=== PATIENT | male | born 1955 | race Caucasian/White ===

== ENCOUNTER 2021-12-22 18:20 | Inpatient (IN) | payer OTHER, SELFPAY ==
[2021-12-22] VITALS (9 sets, daily range): BP systolic 120–162; BP diastolic 74–95; PULSE 59–120; RESP 15–45; TEMP 36.3–36.6; O2SAT 84–99
--- NOTE | 2021-12-22 18:33 | DI.RAD.S_ITS ---
PROCEDURE: XR CHEST 2V INDICATIONS: shortness of breath TECHNIQUE: 2 views of the chest were acquired. COMPARISON: None. FINDINGS: Surgical changes and devices: None. Lungs and pleura: More pronounced in the right lung there are diffusely increased bilateral interstitial markings with central/perihilar predominance along with central pulmonary vascular congestion. Mediastinum: Mediastinal contours are normal. Heart size is enlarged. Bones and chest wall: No suspicious bony abnormalities. Soft tissues appear unremarkable. IMPRESSION: Findings of mild to moderate interstitial pulmonary edema and cardiomegaly. Increased opacity in the right lung may represent a superimposed infectious process or simply asymmetric pulmonary edema. Dictated by: Amari Rodney M.D. on 12/22/2021 at 19:14 Approved by: Amari Rodney M.D. on 12/22/2021 at 19:15
--- NOTE | 2021-12-22 18:44 | ED_ITS ---
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 States it has been bad for the last 6 months he was admitted at [facility] with similar findings in August. He states that he did not realize that he was in the intensive care unit for week and half, they did not tell him anything and did not let him eat for 2 days so he decided to leave. He does not know the doses of his lisinopril, metoprolol, furosemide or Eliquis but states he has been taking them all as prescribed. He notes that his in the last 3-4 days he has had dramatically worsening exertional dyspnea to the point that he can not even walk across the room without needing to sit down. He is not on home oxygen. States he has not used any methamphetamine since prior to his August hospitalization he does continue to use occasional marijuana. He reports orthopnea, lower extremity edema puffiness around his eyes. He had has not weighed himself to know if there has been a significant change to body weight. He has not had fevers he has had a dry cough. He complains of no abdominal pain, dysuria, flank pain. No acute neurologic symptoms. Related Data Allergies Allergy/AdvReac Type Severity Reaction Status Date / Time No Known Drug Allergies Allergy Verified 12/23/21 00:53 Review of Systems Review of Systems Narrative: Remainder of complete review of systems is otherwise unremarkable except for that included in the HPI. Patient History Medical History Acute on chronic HFrEF (heart failure with reduced ejection fraction) Anticoagulant prescribed at discharge Cardiomyopathy Congestive heart failure Hypertension Social History household members: significant other and children Smoking Status: Current some day smoker alcohol intake: never Exam Initial Vital Signs Initial Vital Signs: Vital Signs Temperature 97.4 F L 12/22/21 18:25 Pulse Rate 59 L 12/22/21 18:25 Respiratory Rate 32 H 12/22/21 18:25 Blood Pressure 138/95 H 12/22/21 18:25 Pulse Oximetry 94 12/22/21 18:25 Oxygen Delivery Method 12/22/21 18:25 General: Chronically ill-appearing, short of breath on walking to triage room but Able to give a complete and coherent history. HEENT: Moist mucous membranes, normal sclera with reactive pupils, periorbital swelling and facial fullness Neck: Positive JVD, supple Respiratory: Lungs with diffuse wheeze in all lung quigley, rhonchi and rales in the bases Cardiac: Irregular, 2/6 systolic murmur, positive gallop. No rubs Abdomen: Obese, Soft, nontender, good bowel tones, no flank pain Skin: Warm and dry, adequate peripheral perfusion Neurologic: Grossly neurologically intact with no obvious asymmetries or abnormalities Extremities: No trauma, well perfused, 2+ bilateral edema Psych: Cooperative, appropriate insight and affect Course Orders Ordered: ED Orders 12/22/21 22:35 Trop I [Troponin I] Stat 12/22/21 23:35 BiPAP Ventilatory Support RT PROTOCOL 12/22/21 23:59 ABG [Arterial Blood Gas] Stat Troponin & CK Cardiac Panel Stat 12/23/21 02:00 ABG [Arterial Blood Gas] Stat Acetaminophen (Acetaminophen 325 Mg Tablet) 650 mg PO Q6HR PRN PRN Reason: Fever/Mild Pain (1-3) Apixaban (Apixaban 5 Mg Tablet) 5 mg PO BID [facility] Furosemide (Furosemide 100 Mg/10 Ml Vial) 60 mg IV Q8H [facility] Last Admin: 12/23/21 02:12 Dose: 60 mg Documented By: CB Discontinued Medications Apixaban (Apixaban 5 Mg Tablet) 5 mg PO NOW ONE Stop: 12/22/21 23:43 Last Admin: 12/22/21 23:51 Dose: 5 mg Documented By: OW Furosemide (Furosemide 100 Mg/10 Ml Vial) 80 mg IV NOW ONE Stop: 12/22/21 23:15 Last Admin: 12/22/21 23:21 Dose: 80 mg Documented By: OW Furosemide (Furosemide 40 Mg/4 Ml Vial) 40 mg IV NOW ONE Stop: 12/23/21 00:28 Influenza Virus Vaccine (Influenza Hd Vaccine 0.7 Ml Syringe) 0.7 ml IM .ONCE ONE Stop: 12/23/21 02:34 Lisinopril (Lisinopril 5 Mg Tablet) 5 mg PO NOW ONE Stop: 12/22/21 23:36 Last Admin: 12/22/21 23:51 Dose: 5 mg Documented By: OW Metoprolol Succinate (Metoprolol Er 25 Mg Tablet) 25 mg PO NOW ONE Stop: 12/22/21 23:36 Last Admin: 12/22/21 23:51 Dose: 25 mg Documented By: OW Spironolactone (Spironolactone 25 Mg Tablet) 25 mg PO NOW ONE Stop: 12/22/21 23:36 Last Admin: 12/22/21 23:50 Dose: 25 mg Documented By: OW Vital Signs Vital signs: Vital Signs - 8 hr 12/22/21 22:30 12/22/21 23:26 12/23/21 00:00 Temperature 97.8 F Pulse Rate 105 H 107 H 108 H Respiratory Rate 45 H 20 16 Blood Pressure 120/74 Pulse Oximetry 84 L 97 98 Oxygen Delivery Method Nasal Cannula Oxygen Flow Rate 5 5 Medical Decision Making Lab Data Result diagrams: 12/22/21 18:46 12/22/21 18:46 Labs: Lab Results 12/22/21 12/22/21 12/22/21 Range/Units 18:37 18:46 18:46 WBC 9.4 (4.5-11.0) X10^3/uL RBC 4.82 (4.5-5.9) X10^6/uL Hgb 15.0 (13.5-17.5) g/dL Hct 44.8 (41-53) % MCV 92.8 (80-100) fL MCH 31.0 (26-34) PG MCHC 33.5 (30-36) % RDW 16.6 H (11.6-14.8) % Plt Count 243 (150-400) X10^3/uL Neut % (Auto) 62.1 (50-75) % Lymph % (Auto) 27.4 (25-40) % [place] % (Auto) 9.0 (3-14) % Eos % (Auto) 0.3 L (2-4) % Baso % (Auto) 1.2 (0-2) % Neut # (Auto) 5900 (2034-3530) /uL Lymph # (Auto) 2600 (5160-4812) /uL [place] # (Auto) 800 (0-900) /uL Eos # (Auto) 0 (0-450) /uL Baso # (Auto) 100 (0-100) /uL ABG pCO2 (35-45) mmHg ABG pO2 (80-100) mmHg ABG HCO3 (22-26) mmol/L ABG Total CO2 (21-31) mmol/L ABG O2 Saturation (95-100) % ABG Base Excess (-2-2) mmol/L FiO2 Sodium 142 (137-145) mmol/L Potassium 4.6 (3.4-5.1) mmol/L Chloride 105 (98-107) mmol/L Carbon Dioxide 26 (22-32) mmol/L BUN 20 (9-20) mg/dL Creatinine 1.07 (0.66-1.25) mg/dL Estimated GFR > 60 (>60) mL/min BUN/Creatinine Ratio 18.7 (6-22) Glucose 117 H (80-110) mg/dL Lactate (0.7-2.1) mmol/L Calcium 8.9 (8.4-10.2) mg/dL Total Bilirubin 2.8 H (0.2-1.3) mg/dL AST 48 (17-59) IU/L ALT 47 (<50) IU/L Alkaline Phosphatase 93 (38-126) U/L Total Creatine Kinase (55-170) U/L CK-MB (CK-2) CK-MB (CK-2) Rel Index Troponin I (0.01-0.034) ng/mL NT-Pro-B Natriuret Pep (<125) pg/mL Total Protein 7.8 (6.3-8.2) g/dL Albumin 4.2 (3.5-5.0) g/dL Globulin 3.6 (1.7-4.1) g/dL Albumin/Globulin Ratio 1.2 (1.0-2.8) SARS-CoV-2 (PCR) Negative (Negative) 12/22/21 12/22/21 12/22/21 Range/Units 18:46 19:30 21:05 WBC (4.5-11.0) X10^3/uL RBC (4.5-5.9) X10^6/uL Hgb (13.5-17.5) g/dL Hct (41-53) % MCV (80-100) fL MCH (26-34) PG MCHC (30-36) % RDW (11.6-14.8) % Plt Count (150-400) X10^3/uL Neut % (Auto) (50-75) % Lymph % (Auto) (25-40) % [place] % (Auto) (3-14) % Eos % (Auto) (2-4) % Baso % (Auto) (0-2) % Neut # (Auto) (9117-4399) /uL Lymph # (Auto) (2197-0394) /uL [place] # (Auto) (0-900) /uL Eos # (Auto) (0-450) /uL Baso # (Auto) (0-100) /uL ABG pCO2 (35-45) mmHg ABG pO2 (80-100) mmHg ABG HCO3 (22-26) mmol/L ABG Total CO2 (21-31) mmol/L ABG O2 Saturation (95-100) % ABG Base Excess (-2-2) mmol/L FiO2 Sodium (137-145) mmol/L Potassium (3.4-5.1) mmol/L Chloride (98-107) mmol/L Carbon Dioxide (22-32) mmol/L BUN (9-20) mg/dL Creatinine (0.66-1.25) mg/dL Estimated GFR (>60) mL/min BUN/Creatinine Ratio (6-22) Glucose (80-110) mg/dL Lactate 3.0 H 2.0 (0.7-2.1) mmol/L Calcium (8.4-10.2) mg/dL Total Bilirubin (0.2-1.3) mg/dL AST (17-59) IU/L ALT (<50) IU/L Alkaline Phosphatase (38-126) U/L Total Creatine Kinase (55-170) U/L CK-MB (CK-2) CK-MB (CK-2) Rel Index Troponin I 0.182 H* (0.01-0.034) ng/mL NT-Pro-B Natriuret Pep 8780 H (<125) pg/mL Total Protein (6.3-8.2) g/dL Albumin (3.5-5.0) g/dL Globulin (1.7-4.1) g/dL Albumin/Globulin Ratio (1.0-2.8) SARS-CoV-2 (PCR) (Negative) 12/22/21 12/22/21 12/22/21 Range/Units 22:35 23:59 23:59 WBC (4.5-11.0) X10^3/uL RBC (4.5-5.9) X10^6/uL Hgb (13.5-17.5) g/dL Hct (41-53) % MCV (80-100) fL MCH (26-34) PG MCHC (30-36) % RDW (11.6-14.8) % Plt Count (150-400) X10^3/uL Neut % (Auto) (50-75) % Lymph % (Auto) (25-40) % [place] % (Auto) (3-14) % Eos % (Auto) (2-4) % Baso % (Auto) (0-2) % Neut # (Auto) (5260-4410) /uL Lymph # (Auto) (6781-3739) /uL [place] # (Auto) (0-900) /uL Eos # (Auto) (0-450) /uL Baso # (Auto) (0-100) /uL ABG pCO2 40.4 (35-45) mmHg ABG pO2 81 (80-100) mmHg ABG HCO3 26 (22-26) mmol/L ABG Total CO2 27 (21-31) mmol/L ABG O2 Saturation 96 (95-100) % ABG Base Excess 1.0 (-2-2) mmol/L FiO2 36 Sodium (137-145) mmol/L Potassium (3.4-5.1) mmol/L Chloride (98-107) mmol/L Carbon Dioxide (22-32) mmol/L BUN (9-20) mg/dL Creatinine (0.66-1.25) mg/dL Estimated GFR (>60) mL/min BUN/Creatinine Ratio (6-22) Glucose (80-110) mg/dL Lactate (0.7-2.1) mmol/L Calcium (8.4-10.2) mg/dL Total Bilirubin (0.2-1.3) mg/dL AST (17-59) IU/L ALT (<50) IU/L Alkaline Phosphatase (38-126) U/L Total Creatine Kinase 81 (55-170) U/L CK-MB (CK-2) TNP CK-MB (CK-2) Rel Index TNP Troponin I 0.189 H* 0.199 H* (0.01-0.034) ng/mL NT-Pro-B Natriuret Pep (<125) pg/mL Total Protein (6.3-8.2) g/dL Albumin (3.5-5.0) g/dL Globulin (1.7-4.1) g/dL Albumin/Globulin Ratio (1.0-2.8) SARS-CoV-2 (PCR) (Negative) MDM Narrative Medical decision making narrative: 66-year-old gentleman presents with shortness of breath. Medical history is somewhat convoluted and most is not available through our immediate medical records. It appears that his most recent hospitalization was at [facility] with eventual transfer to [facility] for: -congestive heart failure with ejection fraction of 20% in August of 2021. Almost 12 lb diuresis with IV Lasix, oral spironolactone. -Atrial fibrillation with rapid ventricular response, underwent cardioversion -treated with metoprolol and lisinopril. -was recommended that he undergo cardiac catheterization however he chose to leave against medical advice prior to that Echocardiogram 08/07/2019: Ejection fraction 20%. No left ventricular thrombus seen. Markedly dilated right ventricle, severely hypokinetic. Moderate mitral regurgitation. Trace aortic insufficiency. Patient presents today with clinically fairly significant fluid overload. When sitting talking and taking deep breath oxygen saturations on 2 L nasal cannula are in the upper 90s. Laying flat sleeping with episodes of sleep apnea he will drop into the upper 80s. Rate is in the 80s to 110 range. Overall picture today is that of decompensated congestive heart failure with significant volume overload with troponin leak secondary to significant cardiomyopathy and failure. He is currently on Eliquis, having no chest pain and no ST T elevation changes on his EKG. EKG shows right bundle-branch block, multiple PVCs, rhythm is difficult to assess. It does appear that he has an occasional P wave and than has small runs of what looks like atrial fibrillation. He does not appear to be having any ventricular tachycardia nor bigeminy. For his heart failure will begin IV Lasix and will add BiPAP to help with positive pressure in the alveoli. Will have him continue his oral Eliquis rather than beginning IV heparin. Will also continue his oral metoprolol, ayesha nopril and spironolactone. May benefit from echocardiogram tomorrow. Continue follow clinically and he may benefit from heart catheterization at some point in the near future however it does not look like it needs to be this evening and may not be required with this hospitalization. Care is reviewed with Dr. Sawant, cardiology, he feels that admission to [facility] is reasonable at this point and there are no additional options with significantly high volumes and no bed availability throughout [facility]. Critical Care Time Critical Care Time Critical Care Time: Yes Total Critical Care Time: 36 Attestation: Critical care time is separate from other billable procedures. There is a high probability of a significant, sudden or life-threatening deterioration that requires my full and direct attention, intervention and personal management. 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
[2021-12-22 18:49] LABS: Add Manual Diff / Slide Review NO; Basophils Absolute Auto 100 /uL (0-100); Basophils Percent Auto 1.2 % (0-2); Eosinophils Absolute Auto 0 /uL (0-450); Eosinophils Percent Auto 0.3 % (2-4); Hematocrit 44.8 % (41-53); Lymphocytes Absolute Auto 2600 /uL (1100-4500); Lymphocytes Percent Auto 27.4 % (25-40); Mean Corpuscular HGB Conc 33.5 % (30-36); Mean Corpuscular Volume 92.8 fL (80-100); Monocytes Absolute Auto 800 /uL (0-900); Neutrophils Absolute Auto 5900 /uL (1500-7000); Neutrophils Percent Auto 62.1 % (50-75); Platelet Count 243 X10^3/uL (150-400); Red Blood Cell Count 4.82 X10^6/uL (4.5-5.9); Red Cell Distribution Width 16.6 % (11.6-14.8); White Blood Cell Count 9.4 X10^3/uL (4.5-11.0)
[2021-12-22 19:01] LABS: Alanine Aminotransferase 47 IU/L (<50); Albumin 4.2 g/dL (3.5-5.0); Albumin Globulin Ratio 1.2 (1.0-2.8); Alkaline Phosphatase 93 U/L (38-126); Aspartate Aminotransferase 48 IU/L (17-59); BUN Creatinine Ratio 18.7 (6-22); Bilirubin Total 2.8 mg/dL (0.2-1.3); Blood Urea Nitrogen 20 mg/dL (9-20); Calcium 8.9 mg/dL (8.4-10.2); Carbon Dioxide 26 mmol/L (22-32); Chloride 105 mmol/L (98-107); Estimated Glomerular Filt Rate > 60 mL/min (>60); Globulin 3.6 g/dL (1.7-4.1); Glucose 117 mg/dL (80-110); HEMOLYSIS 25 (0-50); Potassium 4.6 mmol/L (3.4-5.1); Sodium 142 mmol/L (137-145); Total Protein 7.8 g/dL (6.3-8.2)
[2021-12-22 19:10] LABS: COVID19 -Nasal RAPID Negative (Negative)
[2021-12-22 19:58] LABS: NT-proBNP (BNP-Adult 18+) 8780 pg/mL (<125)
[2021-12-22 20:08] LABS: Troponin I 0.182 ng/mL (0.01-0.034)
[2021-12-22 20:46] LABS: Reflexed Lactate in 2 Hours Y
--- NOTE | 2021-12-22 22:52 | PC.NURSE ---
Pt sleeping in semi-irwin position with 5L NC. While sleeping pt's SpO2 drops to the low 80s for periods of 1 min. When woke up pt startles and states, I nee more oxygen and becomes tachypneic. Pt's head of bed raised and RR drops to 18 with SpO2 94%. Pt denies a hx of BRENDAN but reports that he is fearful to go to bed because he is afraid that he will stop breathing. Pt falls asleep quickly and continues to have periods of apnea while sleeping. RT notified and has come down to evaluate pt. RT informs this RN that she will defer to MD's decision. This RN will notify ED MD of pt condition.
[2021-12-22 23:09] LABS: Troponin I 0.189 ng/mL (0.01-0.034)
[2021-12-22] MEDS: FUROSEMIDE 100 MG/10 ML VIAL 80 MG IV (23:21)
[2021-12-22] MEDS: SPIRONOLACTONE 25 MG TABLET PO (23:50)
[2021-12-22] MEDS: lisinopriL 5 MG TABLET PO (23:51)
[2021-12-22] MEDS: APIXABAN 5 MG TABLET PO (23:51)
[2021-12-22] MEDS: METOPROLOL ER 25 MG TABLET PO (23:51)
[2021-12-23] VITALS (47 sets, daily range): BP systolic 83–143; BP diastolic 44–86; PULSE 75–111; RESP 13–43; TEMP 0–37; O2SAT 90–100; BMI 35.2
[2021-12-23 00:21] LABS: Creatine Kinase 81 U/L (55-170)
[2021-12-23 00:43] LABS: Troponin I 0.199 ng/mL (0.01-0.034)
[2021-12-23 01:11] LABS: HCO3 ABG 26 mmol/L (22-26); Oxygen Saturation ABG 96 % (95-100); PCO2 ABG 40.4 mmHg (35-45); PO2 ABG 81 mmHg (80-100); TCO2 ABG 27 mmol/L (21-31)
[2021-12-23 01:12] LABS: Fractionated Inspired Oxygen 36
[2021-12-23 01:54] LABS: pH ABG 7.41 (7.35-7.45)
[2021-12-23] MEDS: FUROSEMIDE 100 MG/10 ML VIAL 60 MG IV ×2 (02:12→15:52)
--- NOTE | 2021-12-23 02:59 | P.HP_ITS ---
History of Present Illness History of Present Illness Date Patient Seen: 12/23/21 Time Patient Seen: 02:00 Chief complaint: SOB, methamphetamine mediated heart failure Narrative: Bunny Castillo is a 66 y.o. male with a history of methamphetamine use (stated last used in August 2021), methamphetamine mediated ischemic cardiomyopathy, heart failure with a reduced ejection fraction of 15%, presented to the ED with worsening shortness of breath. He denies chest pain, but endorses feeling bloated and when he exhales, feels though what he exhales is hot. Denies fe lauren, sweats or chills, vomiting, dysurea, diarrhea or constipation. He has a history of sleep apnea. He does endorse not being able to walk any distance, unable to carry groceries, denies weight gain. Chest x-ray reported findings of mild to moderate interstitial pulmonary edema and cardiomegaly and increased opacity in the right lung representing possible superimposed infection versus pulmonary edema. He is afebrile, blood pressure 108/67 heart rate 93 respiratory rate 14 oxygen saturation of 95% on 5 L, he weighs 100.5 kg with a BMI of 35.2. His CBC is unremarkable, ABGs were within normal limits, glucose 117, total bilirubin was 2.8 His troponin has been slowly rising initially 0.182, 2 hours later was 0.189, and the midnight troponin was 0.199. ProBNP was 8780, COVID 19 PCR is negative. Patient was administered 80 mg of IV Lasix in the emergency department Patient was hospitalized at [facility] in [place] from August 06 to August 12, 2021 after being transferred there from [facility]. He had initially presented with shortness of breath and was found to be in AFib with RVR at that time and admitted there. When they did his echocardiogram it indicated an ejection fraction of 20% and he was subsequently transferred to [facility]. During that stay at [facility] he underwent cardioversion and was diuresed and down by 12 lb. He was supposed to undergo cardiac catheterization however the patient left against medical advice on August 12. Patient did tell me that he had a fast for the cardioversion and then waited another 2 days being NPO and stated he was tired of waiting for the test and decided to leave. Patient told me that he currently does not have a PCP nor does he have a chute worker. 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 He was discharged on apixaban and metoprolol. When he was discharged, he had an appointment with Dr. Floyd at the Cardiology clinic it does not appear though he made that appointment. He attempted to have his medications transferred from his pharmacy in [place] to a local [facility] [place] and was unable to do so and states he has been without his medications for 3-4 weeks. FH: Mother is 84 and alive and well, father age 76 had a history of an MA but of stomach cancer. Patient History Medical History (Updated 12/23/21 @ 03:20 by Alan Lopez MD) Acute on chronic HFrEF (heart failure with reduced ejection fraction) Anticoagulant prescribed at discharge Cardiomyopathy Congestive heart failure Hypertension Family & Social History Social History: household members significant other,children Prior Living Arrangements House Safety & Behavioral: Feels Safe in Current Yes Environment Been Physically Hurt or No Threatened By a Person Tobacco & Substance use: Tobacco type cannabis/marijuana Smoking Status Current some day smoker alcohol intake never Substance Use Type currently smokes marijuana,methamphetamine, last used 08/2021 Meds Home Medications and Allergies Allergies Allergy/AdvReac Type Severity Reaction Status Date / Time No Known Drug Allergies Allergy Verified 12/23/21 00:53 Review of Systems Review of Systems ROS: Yes All systems reviewed with the patient and are negative except as otherwise documented Exam Vital Signs (past 8 hours): - 12/22/21 19:30 12/22/21 20:00 12/22/21 21:30 Temperature Pulse Rate 110 H 108 H 105 H Respiratory Rate 24 26 H 40 H Blood Pressure Pulse Oximetry 94 98 93 Oxygen Delivery Method Oxygen Flow Rate 3 5 12/22/21 22:00 12/22/21 22:30 12/22/21 23:26 Temperature 97.8 F Pulse Rate 108 H 105 H 107 H Respiratory Rate 15 45 H 20 Blood Pressure 120/74 Pulse Oximetry 91 84 L 97 Oxygen Delivery Method Nasal Cannula Oxygen Flow Rate 5 5 5 12/23/21 00:00 12/23/21 00:46 12/23/21 01:44 Temperature 97.6 F Pulse Rate 108 H 111 H 100 H Respiratory Rate 16 20 43 H Blood Pressure 132/85 138/84 Pulse Oximetry 98 96 99 Oxygen Delivery Method BiPAP Oxygen Flow Rate 5 12/23/21 01:59 12/23/21 02:00 12/23/21 02:01 Temperature Pulse Rate 101 H 95 H 97 H Respiratory Rate 31 H 20 Blood Pressure 135/84 Pulse Oximetry 100 99 Oxygen Delivery Method Oxygen Flow Rate 12/23/21 02:01 12/23/21 00:25 Temperature Pulse Rate Respiratory Rate Blood Pressure 111/81 Pulse Oximetry Oxygen Delivery Method Nasal Cannula BiPAP Oxygen Flow Rate Oxygen Delivery Method BiPAP Oxygen Flow Rate 5 Narrative Exam Narrative: Gen: Alert, oriented, obese 66 y.o. 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 Speech clear and coherent. Extremities: +2 pitting edema, moves all 4 extremities, is ambulatory, negative Cassie?s sign Psyche: pleasant, normal mood and affect. Objective Labs Result Diagrams: 12/22/21 18:46 12/22/21 18:46 Labs: Laboratory Results - last 24 hr 12/22/21 12/22/21 12/22/21 18:37 18:46 18:46 WBC 9.4 RBC 4.82 Hgb 15.0 Hct 44.8 MCV 92.8 MCH 31.0 MCHC 33.5 RDW 16.6 H Plt Count 243 Neut % (Auto) 62.1 Lymph % (Auto) 27.4 [place] % (Auto) 9.0 Eos % (Auto) 0.3 L Baso % (Auto) 1.2 Neut # (Auto) 5900 Lymph # (Auto) 2600 [place] # (Auto) 800 Eos # (Auto) 0 Baso # (Auto) 100 ABG pCO2 ABG pO2 ABG HCO3 ABG Total CO2 ABG O2 Saturation ABG Base Excess FiO2 Sodium 142 Potassium 4.6 Chloride 105 Carbon Dioxide 26 BUN 20 Creatinine 1.07 Estimated GFR > 60 BUN/Creatinine Ratio 18.7 Glucose 117 H Lactate Calcium 8.9 Total Bilirubin 2.8 H AST 48 ALT 47 Alkaline Phosphatase 93 Total Creatine Kinase CK-MB (CK-2) CK-MB (CK-2) Rel Index Troponin I NT-Pro-B Natriuret Pep Total Protein 7.8 Albumin 4.2 Globulin 3.6 Albumin/Globulin Ratio 1.2 SARS-CoV-2 (PCR) Negative 12/22/21 12/22/21 12/22/21 18:46 19:30 21:05 WBC RBC Hgb Hct MCV MCH MCHC RDW Plt Count Neut % (Auto) Lymph % (Auto) [place] % (Auto) Eos % (Auto) Baso % (Auto) Neut # (Auto) Lymph # (Auto) [place] # (Auto) Eos # (Auto) Baso # (Auto) ABG pCO2 ABG pO2 ABG HCO3 ABG Total CO2 ABG O2 Saturation ABG Base Excess FiO2 Sodium Potassium Chloride Carbon Dioxide BUN Creatinine Estimated GFR BUN/Creatinine Ratio Glucose Lactate 3.0 H 2.0 Calcium Total Bilirubin AST ALT Alkaline Phosphatase Total Creatine Kinase CK-MB (CK-2) CK-MB (CK-2) Rel Index Troponin I 0.182 H* NT-Pro-B Natriuret Pep 8780 H Total Protein Albumin Globulin Albumin/Globulin Ratio SARS-CoV-2 (PCR) 12/22/21 12/22/21 12/22/21 22:35 23:59 23:59 WBC RBC Hgb Hct MCV MCH MCHC RDW Plt Count Neut % (Auto) Lymph % (Auto) [place] % (Auto) Eos % (Auto) Baso % (Auto) Neut # (Auto) Lymph # (Auto) [place] # (Auto) Eos # (Auto) Baso # (Auto) ABG pCO2 40.4 ABG pO2 81 ABG HCO3 26 ABG Total CO2 27 ABG O2 Saturation 96 ABG Base Excess 1.0 FiO2 36 Sodium Potassium Chloride Carbon Dioxide BUN Creatinine Estimated GFR BUN/Creatinine Ratio Glucose Lactate Calcium Total Bilirubin AST ALT Alkaline Phosphatase Total Creatine Kinase 81 CK-MB (CK-2) TNP CK-MB (CK-2) Rel Index TNP Troponin I 0.189 H* 0.199 H* NT-Pro-B Natriuret Pep Total Protein Albumin Globulin Albumin/Globulin Ratio SARS-CoV-2 (PCR) Assessment & Plan Assessment & Plan narrative: Bunny Castillo is admitted to the ICU for agressive diuresis and BiPap to assist w ith offloading fluid volume Acute on chronic heart failure with reduced ejection fraction, present on admission * ED discussed patient's care with Cardiology in the recommend diuresis, maintaining home medications, and obtaining an echocardiogram in the morning * Continue home dose of metoprolol and lisinopril * Rising troponin may be due to work of breathing will continue to monitor * ProBNP is significantly elevated at almost 9000 * He was administered 80 mg of IV Lasix in the emergency department * Continue aggressive diuresis and he is written for IV Lasix 60 mg t.i.d., this may be discontinued or reduced if he becomes euvolemic * 1000 mL fluid restriction with strict Is and Os Atrial fibrillation likely permanent * Patient is anticoagulated on apixaban 5 mg p.o. b.i.d. and will continue this History of methamphetamine dependence * Patient is counseled on methamphetamine and marijuana use VTE Prophylaxis: Wells risk score 1.5 [X] Bilateral SCDs Patient is currently anticoagulated on apixaban. Patient is admitted to the inpatient intensive care service due to the severity of disease, risks of further disease progression and this stay is expected to exceed 2 midnights. FEN: IV fluids: saline lock, diet: heart healthy low sodium diet, labs: CBC, C/BMP, liver enzymes, Mag, PT/INR Consultants Intercept ICU care and involvement in the patient?s care is appreciated. Dispo: probable d/c to home with re-referral to Cardiology Code status: Full Code as discussed with the patient who identifies Alexandria Matthews his surrogate and POA. Patient indicated to me that he would prefer not to be resuscitated but he felt that his girlfriend would be extremely upset at him. They did discuss this in the room and she seemed to be concerned that they need to speak about this more. [X] I have utilized all available immediate resources to obtain, update, or review of the patient's current medications Time Spent With Patient Critical Care time: I spent a total of 35 minutes of critical care time on this patient's care today; this time is exclusive of procedural time. Scores Wells' Criteria for PE Clinical signs and symptoms of DVT: No PE is #1 Dx or equally likely: No Heart rate > 100: Yes Immobilization at least 3 days or surg in previous 4 weeks: No History of PE or DVT: No Hemoptysis: No Malignancy w/Treatment within 6 months or palliative: No Wells' PE Score total: 1.5 Quality VTE Deep Vein Thrombosis/Pulmonary Embolism Present on Admission: No
--- NOTE | 2021-12-23 03:04 | PC.NURSE ---
Received pt at 0125 from ED. Vitals were stable. Pt was on NC 2 liters and switch to Bipap; settings 16 15/5 40% FiO2. Thread Tool Grinder Set Up Operator was called and current plan continued. Pt was given another 60 mg of Lasix per order after receiving 80 mg in ED. ABG was normal on Bipap. Troponin and BNP were elevated and addressed with bolt labeler. Pt on 1000 mL fluid restriction per 24 period.
--- NOTE | 2021-12-23 03:15 | P.TELICUCN_ITS ---
History of Present Illness Consult details If camera was activated, add TeleICU A-V Statement: Patient was seen by real time interactive two-way audiovisual telecommunication. Chief complaint: SOB Consent obtained for tele-screwdown operator care: Yes Patient Location: ICU Provider location (State): [place] Other participants/roles: RN, MARYANA Narrative: 66-year-old gentleman with a history of HTN, HFrEF w/ LVEF 20%, AF, THC/methamphetamine who presented w/ worsening dyspnea for the last 5-6 days. Cardiac cath has been recommended in the past but he has refused. Started on N IPPV in ED; also received 80 mg Lasix. BNP was 8780 with a troponin of .199. pCXR is remarkable for interstitial pulmonary edema; there is a R lung opacity may be a pneumonia or asymmetric edema. [facility] Medical History Acute on chronic HFrEF (heart failure with reduced ejection fraction) Anticoagulant prescribed at discharge Cardiomyopathy Congestive heart failure Hypertension Social History household members: significant other and children Smoking Status: Current some day smoker alcohol intake: never Current Medications Current Medications Medications: Visit Medications (administered) Generic Name Dose Route Start Last Admin Trade Name Freq PRN Reason Stop Dose Admin Furosemide 60 mg 12/23/21 00:30 12/23/21 02:12 Furosemide 100 Mg/10 Ml Vial IV 60 mg Q8H MARLEEN Administration Exam Vital Signs (past 8 hours): - 12/22/21 19:30 12/22/21 20:00 12/22/21 21:30 Temperature Pulse Rate 110 H 108 H 105 H Respiratory Rate 24 26 H 40 H Blood Pressure Pulse Oximetry 94 98 93 Oxygen Delivery Method Oxygen Flow Rate 3 5 12/22/21 22:00 12/22/21 22:30 12/22/21 23:26 Temperature 97.8 F Pulse Rate 108 H 105 H 107 H Respiratory Rate 15 45 H 20 Blood Pressure 120/74 Pulse Oximetry 91 84 L 97 Oxygen Delivery Method Nasal Cannula Oxygen Flow Rate 5 5 5 12/23/21 00:00 12/23/21 00:46 12/23/21 01:44 Temperature 97.6 F Pulse Rate 108 H 111 H 100 H Respiratory Rate 16 20 43 H Blood Pressure 132/85 138/84 Pulse Oximetry 98 96 99 Oxygen Delivery Method BiPAP Oxygen Flow Rate 5 12/23/21 01:59 12/23/21 02:00 12/23/21 02:01 Temperature Pulse Rate 101 H 95 H 97 H Respiratory Rate 31 H 20 Blood Pressure 135/84 Pulse Oximetry 100 99 Oxygen Delivery Method Oxygen Flow Rate 12/23/21 02:01 12/23/21 00:25 12/23/21 02:30 Temperature Pulse Rate 87 Respiratory Rate 26 H Blood Pressure 111/81 Pulse Oximetry 99 Oxygen Delivery Method Nasal Cannula BiPAP Oxygen Flow Rate 12/23/21 03:00 12/23/21 03:00 Temperature Pulse Rate 93 H Respiratory Rate 14 Blood Pressure 108/67 Pulse Oximetry 95 Oxygen Delivery Method Oxygen Flow Rate Oxygen Delivery Method BiPAP Oxygen Flow Rate 5 Const General: cooperative and comfortable Resp Other: NIPPV 15/5 40% RR16 Cardio Rate: tachycardic (paroxysmal AF in 90-110s w/ bouts of NSR) Rhythm: abnormal rhythm Objective Labs Result Diagrams: 12/22/21 18:46 12/22/21 18:46 Labs: Laboratory Results - last 24 hr 12/22/21 12/22/21 12/22/21 18:37 18:46 18:46 WBC 9.4 RBC 4.82 Hgb 15.0 Hct 44.8 MCV 92.8 MCH 31.0 MCHC 33.5 RDW 16.6 H Plt Count 243 Neut % (Auto) 62.1 Lymph % (Auto) 27.4 Nelson % (Auto) 9.0 Eos % (Auto) 0.3 L Baso % (Auto) 1.2 Neut # (Auto) 5900 Lymph # (Auto) 2600 Nelson # (Auto) 800 Eos # (Auto) 0 Baso # (Auto) 100 ABG pCO2 ABG pO2 ABG HCO3 ABG Total CO2 ABG O2 Saturation ABG Base Excess FiO2 Sodium 142 Potassium 4.6 Chloride 105 Carbon Dioxide 26 BUN 20 Creatinine 1.07 Estimated GFR > 60 BUN/Creatinine Ratio 18.7 Glucose 117 H Lactate Calcium 8.9 Total Bilirubin 2.8 H AST 48 ALT 47 Alkaline Phosphatase 93 Total Creatine Kinase CK-MB (CK-2) CK-MB (CK-2) Rel Index Troponin I NT-Pro-B Natriuret Pep Total Protein 7.8 Albumin 4.2 Globulin 3.6 Albumin/Globulin Ratio 1.2 SARS-CoV-2 (PCR) Negative 12/22/21 12/22/21 12/22/21 18:46 19:30 21:05 WBC RBC Hgb Hct MCV MCH MCHC RDW Plt Count Neut % (Auto) Lymph % (Auto) [place] % (Auto) Eos % (Auto) Baso % (Auto) Neut # (Auto) Lymph # (Auto) [place] # (Auto) Eos # (Auto) Baso # (Auto) ABG pCO2 ABG pO2 ABG HCO3 ABG Total CO2 ABG O2 Saturation ABG Base Excess FiO2 Sodium Potassium Chloride Carbon Dioxide BUN Creatinine Estimated GFR BUN/Creatinine Ratio Glucose Lactate 3.0 H 2.0 Calcium Total Bilirubin AST ALT Alkaline Phosphatase Total Creatine Kinase CK-MB (CK-2) CK-MB (CK-2) Rel Index Troponin I 0.182 H* NT-Pro-B Natriuret Pep 8780 H Total Protein Albumin Globulin Albumin/Globulin Ratio SARS-CoV-2 (PCR) 12/22/21 12/22/21 12/22/21 22:35 23:59 23:59 WBC RBC Hgb Hct MCV MCH MCHC RDW Plt Count Neut % (Auto) Lymph % (Auto) [place] % (Auto) Eos % (Auto) Baso % (Auto) Neut # (Auto) Lymph # (Auto) [place] # (Auto) Eos # (Auto) Baso # (Auto) ABG pCO2 40.4 ABG pO2 81 ABG HCO3 26 ABG Total CO2 27 ABG O2 Saturation 96 ABG Base Excess 1.0 FiO2 36 Sodium Potassium Chloride Carbon Dioxide BUN Creatinine Estimated GFR BUN/Creatinine Ratio Glucose Lactate Calcium Total Bilirubin AST ALT Alkaline Phosphatase Total Creatine Kinase 81 CK-MB (CK-2) TNP CK-MB (CK-2) Rel Index TNP Troponin I 0.189 H* 0.199 H* NT-Pro-B Natriuret Pep Total Protein Albumin Globulin Albumin/Globulin Ratio SARS-CoV-2 (PCR) Assessment & Plan Assessment and plan (1) Acute on chronic HFrEF (heart failure with reduced ejection fraction): Status: Acute Plan: -Continue Lasix -Continue NIPPV (2) Atrial fibrillation: Status: Acute Plan: -Continue Eliquis (3) Polysubstance abuse: Status: Acute Plan: -Watch for withdrawal -Cessation counseling if patient amenable Time Spent With Patient Critical Care time: I spent a total of 35 minutes of time on this patient's care today; this time is exclusive of procedural time.
[2021-12-23 03:37] LABS: Appearance Urine UA CLEAR; Bilirubin Urine UA NEGATIVE (NEGATIVE); Color Urine UA YELLOW; Glucose Urine UA NEGATIVE (Negative); Ketones Urine UA NEGATIVE (NEGATIVE); Leukocyte Esterase Urine UA NEGATIVE (NEGATIVE); Nitrite Urine UA NEGATIVE (Negative); Occult Blood Urine UA NEGATIVE (Negative); Protein Urine UA NEGATIVE (Negative); Urobilinogen Urine UA 0.2 E.U./dL (0.2); pH Urine UA 5.5 (4.5-8.0)
[2021-12-23 03:38] LABS: Bacteria Urine None Seen; Culture Indicated Urine Cult Not Indicated; RBC Urine None Seen (0-5/HPF); Urine Comments Microscopic Normal; WBC Urine None Seen (0-5/HPF)
[2021-12-23 03:41] LABS: UR Morphine/Opiate cutoff 300 Negative (Negative); Ur Creatinine Normal (Normal); Ur Specific Gravity Normal (Normal); Urine Amphetamines Negative (Negative); Urine Barbiturates Negative (Negative); Urine Benzodiazepines Negative (Negative); Urine Cocaine Negative (Negative); Urine MDMA Negative (Negative); Urine Methadone Negative (Negative); Urine Methamphetamines Positive (Negative); Urine Oxycodone Negative (Negative); Urine Phencyclidine Negative (Negative); Urine Tricyclic Antidepressant Negative (Negative); Urine pH Normal (Normal)
[2021-12-23 06:13] LABS: Add Manual Diff / Slide Review NO; Basophils Absolute Auto 0 /uL (0-100); Basophils Percent Auto 0.5 % (0-2); Eosinophils Absolute Auto 100 /uL (0-450); Eosinophils Percent Auto 0.6 % (2-4); Hematocrit 43.1 % (41-53); Hemoglobin 14.3 g/dL (13.5-17.5); Lymphocytes Absolute Auto 2900 /uL (1100-4500); Lymphocytes Percent Auto 30.3 % (25-40); Mean Corpuscular HGB Conc 33.2 % (30-36); Mean Corpuscular Hemoglobin 30.8 PG (26-34); Mean Corpuscular Volume 92.8 fL (80-100); Monocytes Absolute Auto 900 /uL (0-900); Monocytes Percent Auto 9.7 % (3-14); Neutrophils Absolute Auto 5700 /uL (1500-7000); Neutrophils Percent Auto 58.9 % (50-75); Platelet Count 222 X10^3/uL (150-400); Red Blood Cell Count 4.65 X10^6/uL (4.5-5.9); Red Cell Distribution Width 16.2 % (11.6-14.8); White Blood Cell Count 9.6 X10^3/uL (4.5-11.0)
[2021-12-23 06:25] LABS: Alanine Aminotransferase 36 IU/L (<50); Albumin 3.7 g/dL (3.5-5.0); Albumin Globulin Ratio 1.2 (1.0-2.8); Alkaline Phosphatase 83 U/L (38-126); Aspartate Aminotransferase 52 IU/L (17-59); BUN Creatinine Ratio 20.3 (6-22); Bilirubin Total 2.5 mg/dL (0.2-1.3); Blood Urea Nitrogen 24 mg/dL (9-20); Calcium 8.7 mg/dL (8.4-10.2); Carbon Dioxide 30 mmol/L (22-32); Chloride 104 mmol/L (98-107); Estimated Glomerular Filt Rate > 60 mL/min (>60); Globulin 3.2 g/dL (1.7-4.1); Glucose 88 mg/dL (80-110); HEMOLYSIS 26 (0-50); Magnesium 2.1 mg/dL (1.6-2.3); Potassium 4.5 mmol/L (3.4-5.1); Sodium 142 mmol/L (137-145); Total Protein 6.9 g/dL (6.3-8.2)
[2021-12-23 06:36] LABS: Creatine Kinase 76 U/L (55-170)
[2021-12-23 06:53] LABS: Troponin I 0.215 ng/mL (0.01-0.034)
[2021-12-23 07:13] LABS: Thyroid Stimulating Hormone 1.79 uIU/mL (0.47-4.68)
--- NOTE | 2021-12-23 08:50 | PM.PN.EICU ---
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 Pt. placed on BIPAP for work of breathing (ABG wnl) and given lasix. Recent events: Patient diuresed off 1 L net neg. Patient improved and came off BIPAP Current Medications Current Medications Medications: Visit Medications (administered) Generic Name Dose Route Start Last Admin Trade Name Freq PRN Reason Stop Dose Admin Furosemide 60 mg 12/23/21 00:30 12/23/21 08:21 Furosemide 100 Mg/10 Ml Vial IV Not Given Q8H MARLEEN Objective Ventilator Parameters: Ventilator Settings FiO2 40 Labs Result Diagrams: 12/23/21 06:00 12/23/21 06:00 Labs: Laboratory Results - last 24 hr 12/22/21 12/22/21 12/22/21 18:37 18:46 18:46 WBC 9.4 RBC 4.82 Hgb 15.0 Hct 44.8 MCV 92.8 MCH 31.0 MCHC 33.5 RDW 16.6 H Plt Count 243 Neut % (Auto) 62.1 Lymph % (Auto) 27.4 Meagher % (Auto) 9.0 Eos % (Auto) 0.3 L Baso % (Auto) 1.2 Neut # (Auto) 5900 Lymph # (Auto) 2600 Meagher # (Auto) 800 Eos # (Auto) 0 Baso # (Auto) 100 ABG pH ABG pCO2 ABG pO2 ABG HCO3 ABG Total CO2 ABG O2 Saturation ABG Base Excess FiO2 Sodium 142 Potassium 4.6 Chloride 105 Carbon Dioxide 26 BUN 20 Creatinine 1.07 Estimated GFR > 60 BUN/Creatinine Ratio 18.7 Glucose 117 H Lactate Calcium 8.9 Magnesium Total Bilirubin 2.8 H AST 48 ALT 47 Alkaline Phosphatase 93 Total Creatine Kinase CK-MB (CK-2) CK-MB (CK-2) Rel Index Troponin I NT-Pro-B Natriuret Pep Total Protein 7.8 Albumin 4.2 Globulin 3.6 Albumin/Globulin Ratio 1.2 TSH Urine Color Urine Appearance Urine pH Ur Specific [place] Urine Protein Urine Glucose (UA) Urine Ketones Urine Occult Blood Urine Nitrate Urine Bilirubin Urine Urobilinogen Ur Leukocyte Esterase Urine RBC Urine WBC Urine Bacteria Ur Culture Indicated? Micro UA Comment Nasal Screen MRSA (PCR) U Opiates 300ng/mL cut Ur Oxycodone Screen Urine Methadone Screen Ur Barbiturates Screen U Tricyclic Antidepress Ur Phencyclidine Scrn Ur Amphetamines Screen U Methamphetamines Scrn Ur MDMA Scrn (Ecstasy) U Benzodiazepines Scrn Urine Cocaine Screen U Marijuana (THC) Screen SARS-CoV-2 (PCR) Negative 12/22/21 12/22/21 12/22/21 18:46 19:30 21:05 WBC RBC Hgb Hct MCV MCH MCHC RDW Plt Count Neut % (Auto) Lymph % (Auto) Meagher % (Auto) Eos % (Auto) Baso % (Auto) Neut # (Auto) Lymph # (Auto) Meagher # (Auto) Eos # (Auto) Baso # (Auto) ABG pH ABG pCO2 ABG pO2 ABG HCO3 ABG Total CO2 ABG O2 Saturation ABG Base Excess FiO2 Sodium Potassium Chloride Carbon Dioxide BUN Creatinine Estimated GFR BUN/Creatinine Ratio Glucose Lactate 3.0 H 2.0 Calcium Magnesium Total Bilirubin AST ALT Alkaline Phosphatase Total Creatine Kinase CK-MB (CK-2) CK-MB (CK-2) Rel Index Troponin I 0.182 H* NT-Pro-B Natriuret Pep 8780 H Total Protein Albumin Globulin Albumin/Globulin Ratio TSH Urine Color Urine Appearance Urine pH Ur Specific [place] Urine Protein Urine Glucose (UA) Urine Ketones Urine Occult Blood Urine Nitrate Urine Bilirubin Urine Urobilinogen Ur Leukocyte Esterase Urine RBC Urine WBC Urine Bacteria Ur Culture Indicated? Micro UA Comment Nasal Screen MRSA (PCR) U Opiates 300ng/mL cut Ur Oxycodone Screen Urine Methadone Screen Ur Barbiturates Screen U Tricyclic Antidepress Ur Phencyclidine Scrn Ur Amphetamines Screen U Methamphetamines Scrn Ur MDMA Scrn (Ecstasy) U Benzodiazepines Scrn Urine Cocaine Screen U Marijuana (THC) Screen SARS-CoV-2 (PCR) 12/22/21 12/22/21 12/22/21 22:35 23:59 23:59 WBC RBC Hgb Hct MCV MCH MCHC RDW Plt Count Neut % (Auto) Lymph % (Auto) Meagher % (Auto) Eos % (Auto) Baso % (Auto) Neut # (Auto) Lymph # (Auto) Meagher # (Auto) Eos # (Auto) Baso # (Auto) ABG pH 7.41 ABG pCO2 40.4 ABG pO2 81 ABG HCO3 26 ABG Total CO2 27 ABG O2 Saturation 96 ABG Base Excess 1.0 FiO2 36 Sodium Potassium Chloride Carbon Dioxide BUN Creatinine Estimated GFR BUN/Creatinine Ratio Glucose Lactate Calcium Magnesium Total Bilirubin AST ALT Alkaline Phosphatase Total Creatine Kinase 81 CK-MB (CK-2) TNP CK-MB (CK-2) Rel Index TNP Troponin I 0.189 H* 0.199 H* NT-Pro-B Natriuret Pep Total Protein Albumin Globulin Albumin/Globulin Ratio TSH Urine Color Urine Appearance Urine pH Ur Specific [place] Urine Protein Urine Glucose (UA) Urine Ketones Urine Occult Blood Urine Nitrate Urine Bilirubin Urine Urobilinogen Ur Leukocyte Esterase Urine RBC Urine WBC Urine Bacteria Ur Culture Indicated? Micro UA Comment Nasal Screen MRSA (PCR) U Opiates 300ng/mL cut Ur Oxycodone Screen Urine Methadone Screen Ur Barbiturates Screen U Tricyclic Antidepress Ur Phencyclidine Scrn Ur Amphetamines Screen U Methamphetamines Scrn Ur MDMA Scrn (Ecstasy) U Benzodiazepines Scrn Urine Cocaine Screen U Marijuana (THC) Screen SARS-CoV-2 (PCR) 12/23/21 12/23/21 12/23/21 03:20 03:20 03:22 WBC RBC Hgb Hct MCV MCH MCHC RDW Plt Count Neut % (Auto) Lymph % (Auto) Meagher % (Auto) Eos % (Auto) Baso % (Auto) Neut # (Auto) Lymph # (Auto) Meagher # (Auto) Eos # (Auto) Baso # (Auto) ABG pH ABG pCO2 ABG pO2 ABG HCO3 ABG Total CO2 ABG O2 Saturation ABG Base Excess FiO2 Sodium Potassium Chloride Carbon Dioxide BUN Creatinine Estimated GFR BUN/Creatinine Ratio Glucose Lactate Calcium Magnesium Total Bilirubin AST ALT Alkaline Phosphatase Total Creatine Kinase CK-MB (CK-2) CK-MB (CK-2) Rel Index Troponin I NT-Pro-B Natriuret Pep Total Protein Albumin Globulin Albumin/Globulin Ratio TSH Urine Color Yellow Urine Appearance Clear Urine pH 5.5 Ur Specific [place] 1.010 Urine Protein Negative Urine Glucose (UA) Negative Urine Ketones Negative Urine Occult Blood Negative Urine Nitrate Negative Urine Bilirubin Negative Urine Urobilinogen 0.2 Ur Leukocyte Esterase Negative Urine RBC None seen Urine WBC None seen Urine Bacteria None seen Ur Culture Indicated? Cult not indicated Micro UA Comment Microscopic normal Nasal Screen MRSA (PCR) Negative for mrsa U Opiates 300ng/mL cut Negative Ur Oxycodone Screen Negative Urine Methadone Screen Negative Ur Barbiturates Screen Negative U Tricyclic Antidepress Negative Ur Phencyclidine Scrn Negative Ur Amphetamines Screen Negative U Methamphetamines Scrn Positive H Ur MDMA Scrn (Ecstasy) Negative U Benzodiazepines Scrn Negative Urine Cocaine Screen Negative U Marijuana (THC) Screen Negative SARS-CoV-2 (PCR) 12/23/21 12/23/21 12/23/21 06:00 06:00 06:00 WBC 9.6 RBC 4.65 Hgb 14.3 Hct 43.1 MCV 92.8 MCH 30.8 MCHC 33.2 RDW 16.2 H Plt Count 222 Neut % (Auto) 58.9 Lymph % (Auto) 30.3 Meagher % (Auto) 9.7 Eos % (Auto) 0.6 L Baso % (Auto) 0.5 Neut # (Auto) 5700 Lymph # (Auto) 2900 Meagher # (Auto) 900 Eos # (Auto) 100 Baso # (Auto) 0 ABG pH ABG pCO2 ABG pO2 ABG HCO3 ABG Total CO2 ABG O2 Saturation ABG Base Excess FiO2 Sodium 142 Potassium 4.5 Chloride 104 Carbon Dioxide 30 BUN 24 H Creatinine 1.18 Estimated GFR > 60 BUN/Creatinine Ratio 20.3 Glucose 88 Lactate Calcium 8.7 Magnesium Total Bilirubin 2.5 H AST 52 ALT 36 Alkaline Phosphatase 83 Total Creatine Kinase 76 CK-MB (CK-2) TNP CK-MB (CK-2) Rel Index TNP Troponin I 0.215 H* NT-Pro-B Natriuret Pep Total Protein 6.9 Albumin 3.7 Globulin 3.2 Albumin/Globulin Ratio 1.2 TSH Urine Color Urine Appearance Urine pH Ur Specific [place] Urine Protein Urine Glucose (UA) Urine Ketones Urine Occult Blood Urine Nitrate Urine Bilirubin Urine Urobilinogen Ur Leukocyte Esterase Urine RBC Urine WBC Urine Bacteria Ur Culture Indicated? Micro UA Comment Nasal Screen MRSA (PCR) U Opiates 300ng/mL cut Ur Oxycodone Screen Urine Methadone Screen Ur Barbiturates Screen U Tricyclic Antidepress Ur Phencyclidine Scrn Ur Amphetamines Screen U Methamphetamines Scrn Ur MDMA Scrn (Ecstasy) U Benzodiazepines Scrn Urine Cocaine Screen U Marijuana (THC) Screen SARS-CoV-2 (PCR) 12/23/21 12/23/21 06:00 06:00 WBC RBC Hgb Hct MCV MCH MCHC RDW Plt Count Neut % (Auto) Lymph % (Auto) [place] % (Auto) Eos % (Auto) Baso % (Auto) Neut # (Auto) Lymph # (Auto) [place] # (Auto) Eos # (Auto) Baso # (Auto) ABG pH ABG pCO2 ABG pO2 ABG HCO3 ABG Total CO2 ABG O2 Saturation ABG Base Excess FiO2 Sodium Potassium Chloride Carbon Dioxide BUN Creatinine Estimated GFR BUN/Creatinine Ratio Glucose Lactate Calcium Magnesium 2.1 Total Bilirubin AST ALT Alkaline Phosphatase Total Creatine Kinase CK-MB (CK-2) CK-MB (CK-2) Rel Index Troponin I NT-Pro-B Natriuret Pep Total Protein Albumin Globulin Albumin/Globulin Ratio TSH 1.79 Urine Color Urine Appearance Urine pH Ur Specific [place] Urine Protein Urine Glucose (UA) Urine Ketones Urine Occult Blood Urine Nitrate Urine Bilirubin Urine Urobilinogen Ur Leukocyte Esterase Urine RBC Urine WBC Urine Bacteria Ur Culture Indicated? Micro UA Comment Nasal Screen MRSA (PCR) U Opiates 300ng/mL cut Ur Oxycodone Screen Urine Methadone Screen Ur Barbiturates Screen U Tricyclic Antidepress Ur Phencyclidine Scrn Ur Amphetamines Screen U Methamphetamines Scrn Ur MDMA Scrn (Ecstasy) U Benzodiazepines Scrn Urine Cocaine Screen U Marijuana (THC) Screen SARS-CoV-2 (PCR) Exam Vital Signs (past 8 hours): - 12/23/21 01:44 12/23/21 01:59 12/23/21 02:00 Temperature 97.6 F Pulse Rate 100 H 101 H 95 H Respiratory Rate 43 H 31 H Blood Pressure 138/84 135/84 Pulse Oximetry 99 100 Oxygen Flow Rate 5 Fraction of Inspired Oxygen 12/23/21 02:01 12/23/21 02:01 12/23/21 02:30 Temperature Pulse Rate 97 H 87 Respiratory Rate 20 26 H Blood Pressure 111/81 Pulse Oximetry 99 99 Oxygen Flow Rate Fraction of Inspired Oxygen 12/23/21 03:00 12/23/21 03:00 12/23/21 01:30 Temperature Pulse Rate 93 H Respiratory Rate 14 Blood Pressure 108/67 Pulse Oximetry 95 Oxygen Flow Rate Fraction of Inspired Oxygen 40 12/23/21 03:30 12/23/21 04:00 12/23/21 04:01 Temperature Pulse Rate 94 H 88 86 Respiratory Rate 16 18 23 Blood Pressure Pulse Oximetry 98 97 95 Oxygen Flow Rate Fraction of Inspired Oxygen 12/23/21 04:01 12/23/21 04:30 12/23/21 05:00 Temperature Pulse Rate 82 91 H Respiratory Rate 19 23 Blood Pressure 121/86 Pulse Oximetry 93 94 Oxygen Flow Rate 5 Fraction of Inspired Oxygen 12/23/21 05:02 12/23/21 05:02 12/23/21 04:00 Temperature Pulse Rate 91 H Respiratory Rate 28 H Blood Pressure 143/81 H 143/81 H Pulse Oximetry 93 Oxygen Flow Rate Fraction of Inspired Oxygen 40 12/23/21 05:30 12/23/21 06:00 12/23/21 06:30 Temperature Pulse Rate 96 H 94 H 86 Respiratory Rate 33 H 31 H 33 H Blood Pressure Pulse Oximetry 94 97 97 Oxygen Flow Rate 5 Fraction of Inspired Oxygen 12/23/21 07:00 12/23/21 07:30 12/23/21 08:00 Temperature Pulse Rate 95 H 83 82 Respiratory Rate 25 H 22 19 Blood Pressure Pulse Oximetry 100 95 99 Oxygen Flow Rate Fraction of Inspired Oxygen 12/23/21 08:00 12/23/21 08:07 12/23/21 08:07 Temperature 97.6 F Pulse Rate 83 Respiratory Rate 18 Blood Pressure 113/56 L Pulse Oximetry 99 Oxygen Flow Rate Fraction of Inspired Oxygen 12/23/21 08:30 Temperature Pulse Rate 100 H Respiratory Rate 31 H Blood Pressure Pulse Oximetry Oxygen Flow Rate Fraction of Inspired Oxygen Fraction of Inspired Oxygen 40 Oxygen Delivery Method BiPAP Oxygen Flow Rate 5 Narrative Exam Narrative: patient seen over 2 way audio visual system. He is sitting up in bed breathing comfortably on nasal cannula Quality TeleICU VTE Deep Vein Thrombosis/Pulmonary Embolism Present on Admission: No Assessment & Plan Assessment & Plan narrative: Assessment CHF exacerbation Meth induced cardiomyopathy h/o of Paroxysmal Afib (but currently in NSR) Plan -continue diuresis -replace electrolytes as needed -cardiac cath when patient is agreeable to it - BIPAP prn CCT spent 40 min Time Spent With Patient Critical Care time: I spent a total of [] minutes of critical care time on this patient's care today; this time is exclusive of procedural time.
--- NOTE | 2021-12-23 09:26 | PM.PN.1 ---
Subjective Subjective Date Patient Seen: 12/23/21 Time Patient Seen: 09:30 Interval history: Patient feeling somewhat better. Able to breathe and talk easily. Swelling decrease in his lower extremities. Feels very thirsty. No new complaints. Breathing well on room air. Exam Vital Signs (past 8 hours): - 12/23/21 01:44 12/23/21 01:59 12/23/21 02:00 Temperature 97.6 F Pulse Rate 100 H 101 H 95 H Respiratory Rate 43 H 31 H Blood Pressure 138/84 135/84 Pulse Oximetry 99 100 Oxygen Flow Rate 5 Fraction of Inspired Oxygen 12/23/21 02:01 12/23/21 02:01 12/23/21 02:30 Temperature Pulse Rate 97 H 87 Respiratory Rate 20 26 H Blood Pressure 111/81 Pulse Oximetry 99 99 Oxygen Flow Rate Fraction of Inspired Oxygen 12/23/21 03:00 12/23/21 03:00 12/23/21 01:30 Temperature Pulse Rate 93 H Respiratory Rate 14 Blood Pressure 108/67 Pulse Oximetry 95 Oxygen Flow Rate Fraction of Inspired Oxygen 40 12/23/21 03:30 12/23/21 04:00 12/23/21 04:01 Temperature Pulse Rate 94 H 88 86 Respiratory Rate 16 18 23 Blood Pressure Pulse Oximetry 98 97 95 Oxygen Flow Rate Fraction of Inspired Oxygen 12/23/21 04:01 12/23/21 04:30 12/23/21 05:00 Temperature Pulse Rate 82 91 H Respiratory Rate 19 23 Blood Pressure 121/86 Pulse Oximetry 93 94 Oxygen Flow Rate 5 Fraction of Inspired Oxygen 12/23/21 05:02 12/23/21 05:02 12/23/21 04:00 Temperature Pulse Rate 91 H Respiratory Rate 28 H Blood Pressure 143/81 H 143/81 H Pulse Oximetry 93 Oxygen Flow Rate Fraction of Inspired Oxygen 40 12/23/21 05:30 12/23/21 06:00 12/23/21 06:30 Temperature Pulse Rate 96 H 94 H 86 Respiratory Rate 33 H 31 H 33 H Blood Pressure Pulse Oximetry 94 97 97 Oxygen Flow Rate 5 Fraction of Inspired Oxygen 12/23/21 07:00 12/23/21 07:30 12/23/21 08:00 Temperature Pulse Rate 95 H 83 82 Respiratory Rate 25 H 22 19 Blood Pressure Pulse Oximetry 100 95 99 Oxygen Flow Rate Fraction of Inspired Oxygen 12/23/21 08:00 12/23/21 08:07 12/23/21 08:07 Temperature 97.6 F Pulse Rate 83 Respiratory Rate 18 Blood Pressure 113/56 L Pulse Oximetry 99 Oxygen Flow Rate Fraction of Inspired Oxygen 12/23/21 08:30 Temperature Pulse Rate 100 H Respiratory Rate 31 H Blood Pressure Pulse Oximetry Oxygen Flow Rate Fraction of Inspired Oxygen Fraction of Inspired Oxygen 40 Oxygen Delivery Method BiPAP Oxygen Flow Rate 5 Narrative Exam Narrative: Appears to be in no acute medical distress. HEENT: Pupils equal reactive to light. Extraocular movements normal. Neck is supple. Neck nodes are nontender and nonpalpable. Trachea is midline. Cardiovascular: Heart sounds S1 and S2. No extra sounds or murmurs. Peripheral pulses equal bilaterally. Minimal pedal edema. Respiratory: Adequate air entry throughout the lung quigley although decreased. No wheezes or crackles. Gastrointestinal: Abdomen is soft. Nontender. Bowel sounds normal. 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 No open wounds. Musculoskeletal: Able to move all extremities volitionally. No tenderness of the extremities. Neuro: Normal sensation of all extremities. Psych: Normal mood. No apparent distress depression. Objective Labs Result Diagrams: 12/23/21 06:00 12/23/21 06:00 Labs: Laboratory Results - last 24 hr 12/22/21 12/22/21 12/22/21 18:37 18:46 18:46 WBC 9.4 RBC 4.82 Hgb 15.0 Hct 44.8 MCV 92.8 MCH 31.0 MCHC 33.5 RDW 16.6 H Plt Count 243 Neut % (Auto) 62.1 Lymph % (Auto) 27.4 [place] % (Auto) 9.0 Eos % (Auto) 0.3 L Baso % (Auto) 1.2 Neut # (Auto) 5900 Lymph # (Auto) 2600 [place] # (Auto) 800 Eos # (Auto) 0 Baso # (Auto) 100 ABG pH ABG pCO2 ABG pO2 ABG HCO3 ABG Total CO2 ABG O2 Saturation ABG Base Excess FiO2 Sodium 142 Potassium 4.6 Chloride 105 Carbon Dioxide 26 BUN 20 Creatinine 1.07 Estimated GFR > 60 BUN/Creatinine Ratio 18.7 Glucose 117 H Lactate Calcium 8.9 Magnesium Total Bilirubin 2.8 H AST 48 ALT 47 Alkaline Phosphatase 93 Total Creatine Kinase CK-MB (CK-2) CK-MB (CK-2) Rel Index Troponin I NT-Pro-B Natriuret Pep Total Protein 7.8 Albumin 4.2 Globulin 3.6 Albumin/Globulin Ratio 1.2 TSH Urine Color Urine Appearance Urine pH Ur Specific [place] Urine Protein Urine Glucose (UA) Urine Ketones Urine Occult Blood Urine Nitrate Urine Bilirubin Urine Urobilinogen Ur Leukocyte Esterase Urine RBC Urine WBC Urine Bacteria Ur Culture Indicated? Micro UA Comment Nasal Screen MRSA (PCR) U Opiates 300ng/mL cut Ur Oxycodone Screen Urine Methadone Screen Ur Barbiturates Screen U Tricyclic Antidepress Ur Phencyclidine Scrn Ur Amphetamines Screen U Methamphetamines Scrn Ur MDMA Scrn (Ecstasy) U Benzodiazepines Scrn Urine Cocaine Screen U Marijuana (THC) Screen SARS-CoV-2 (PCR) Negative 12/22/21 12/22/21 12/22/21 18:46 19:30 21:05 WBC RBC Hgb Hct MCV MCH MCHC RDW Plt Count Neut % (Auto) Lymph % (Auto) [place] % (Auto) Eos % (Auto) Baso % (Auto) Neut # (Auto) Lymph # (Auto) [place] # (Auto) Eos # (Auto) Baso # (Auto) ABG pH ABG pCO2 ABG pO2 ABG HCO3 ABG Total CO2 ABG O2 Saturation ABG Base Excess FiO2 Sodium Potassium Chloride Carbon Dioxide BUN Creatinine Estimated GFR BUN/Creatinine Ratio Glucose Lactate 3.0 H 2.0 Calcium Magnesium Total Bilirubin AST ALT Alkaline Phosphatase Total Creatine Kinase CK-MB (CK-2) CK-MB (CK-2) Rel Index Troponin I 0.182 H* NT-Pro-B Natriuret Pep 8780 H Total Protein Albumin Globulin Albumin/Globulin Ratio TSH Urine Color Urine Appearance Urine pH Ur Specific [place] Urine Protein Urine Glucose (UA) Urine Ketones Urine Occult Blood Urine Nitrate Urine Bilirubin Urine Urobilinogen Ur Leukocyte Esterase Urine RBC Urine WBC Urine Bacteria Ur Culture Indicated? Micro UA Comment Nasal Screen MRSA (PCR) U Opiates 300ng/mL cut Ur Oxycodone Screen Urine Methadone Screen Ur Barbiturates Screen U Tricyclic Antidepress Ur Phencyclidine Scrn Ur Amphetamines Screen U Methamphetamines Scrn Ur MDMA Scrn (Ecstasy) U Benzodiazepines Scrn Urine Cocaine Screen U Marijuana (THC) Screen SARS-CoV-2 (PCR) 08/21/22 08/21/22 08/21/22 22:35 23:59 23:59 WBC RBC Hgb Hct MCV MCH MCHC RDW Plt Count Neut % (Auto) Lymph % (Auto) [place] % (Auto) Eos % (Auto) Baso % (Auto) Neut # (Auto) Lymph # (Auto) [place] # (Auto) Eos # (Auto) Baso # (Auto) ABG pH 7.41 ABG pCO2 40.4 ABG pO2 81 ABG HCO3 26 ABG Total CO2 27 ABG O2 Saturation 96 ABG Base Excess 1.0 FiO2 36 Sodium Potassium Chloride Carbon Dioxide BUN Creatinine Estimated GFR BUN/Creatinine Ratio Glucose Lactate Calcium Magnesium Total Bilirubin AST ALT Alkaline Phosphatase Total Creatine Kinase 81 CK-MB (CK-2) TNP CK-MB (CK-2) Rel Index TNP Troponin I 0.189 H* 0.199 H* NT-Pro-B Natriuret Pep Total Protein Albumin Globulin Albumin/Globulin Ratio TSH Urine Color Urine Appearance Urine pH Ur Specific [place] Urine Protein Urine Glucose (UA) Urine Ketones Urine Occult Blood Urine Nitrate Urine Bilirubin Urine Urobilinogen Ur Leukocyte Esterase Urine RBC Urine WBC Urine Bacteria Ur Culture Indicated? Micro UA Comment Nasal Screen MRSA (PCR) U Opiates 300ng/mL cut Ur Oxycodone Screen Urine Methadone Screen Ur Barbiturates Screen U Tricyclic Antidepress Ur Phencyclidine Scrn Ur Amphetamines Screen U Methamphetamines Scrn Ur MDMA Scrn (Ecstasy) U Benzodiazepines Scrn Urine Cocaine Screen U Marijuana (THC) Screen SARS-CoV-2 (PCR) 12/23/21 12/23/21 12/23/21 03:20 03:20 03:22 WBC RBC Hgb Hct MCV MCH MCHC RDW Plt Count Neut % (Auto) Lymph % (Auto) [place] % (Auto) Eos % (Auto) Baso % (Auto) Neut # (Auto) Lymph # (Auto) [place] # (Auto) Eos # (Auto) Baso # (Auto) ABG pH ABG pCO2 ABG pO2 ABG HCO3 ABG Total CO2 ABG O2 Saturation ABG Base Excess FiO2 Sodium Potassium Chloride Carbon Dioxide BUN Creatinine Estimated GFR BUN/Creatinine Ratio Glucose Lactate Calcium Magnesium Total Bilirubin AST ALT Alkaline Phosphatase Total Creatine Kinase CK-MB (CK-2) CK-MB (CK-2) Rel Index Troponin I NT-Pro-B Natriuret Pep Total Protein Albumin Globulin Albumin/Globulin Ratio TSH Urine Color Yellow Urine Appearance Clear Urine pH 5.5 Ur Specific [place] 1.010 Urine Protein Negative Urine Glucose (UA) Negative Urine Ketones Negative Urine Occult Blood Negative Urine Nitrate Negative Urine Bilirubin Negative Urine Urobilinogen 0.2 Ur Leukocyte Esterase Negative Urine RBC None seen Urine WBC None seen Urine Bacteria None seen Ur Culture Indicated? Cult not indicated Micro UA Comment Microscopic normal Nasal Screen MRSA (PCR) Negative for mrsa U Opiates 300ng/mL cut Negative Ur Oxycodone Screen Negative Urine Methadone Screen Negative Ur Barbiturates Screen Negative U Tricyclic Antidepress Negative Ur Phencyclidine Scrn Negative Ur Amphetamines Screen Negative U Methamphetamines Scrn Positive H Ur MDMA Scrn (Ecstasy) Negative U Benzodiazepines Scrn Negative Urine Cocaine Screen Negative U Marijuana (THC) Screen Negative SARS-CoV-2 (PCR) 12/23/21 12/23/21 12/23/21 06:00 06:00 06:00 WBC 9.6 RBC 4.65 Hgb 14.3 Hct 43.1 MCV 92.8 MCH 30.8 MCHC 33.2 RDW 16.2 H Plt Count 222 Neut % (Auto) 58.9 Lymph % (Auto) 30.3 [place] % (Auto) 9.7 Eos % (Auto) 0.6 L Baso % (Auto) 0.5 Neut # (Auto) 5700 Lymph # (Auto) 2900 [place] # (Auto) 900 Eos # (Auto) 100 Baso # (Auto) 0 ABG pH ABG pCO2 ABG pO2 ABG HCO3 ABG Total CO2 ABG O2 Saturation ABG Base Excess FiO2 Sodium 142 Potassium 4.5 Chloride 104 Carbon Dioxide 30 BUN 24 H Creatinine 1.18 Estimated GFR > 60 BUN/Creatinine Ratio 20.3 Glucose 88 Lactate Calcium 8.7 Magnesium Total Bilirubin 2.5 H AST 52 ALT 36 Alkaline Phosphatase 83 Total Creatine Kinase 76 CK-MB (CK-2) TNP CK-MB (CK-2) Rel Index TNP Troponin I 0.215 H* NT-Pro-B Natriuret Pep Total Protein 6.9 Albumin 3.7 Globulin 3.2 Albumin/Globulin Ratio 1.2 TSH Urine Color Urine Appearance Urine pH Ur Specific [place] Urine Protein Urine Glucose (UA) Urine Ketones Urine Occult Blood Urine Nitrate Urine Bilirubin Urine Urobilinogen Ur Leukocyte Esterase Urine RBC Urine WBC Urine Bacteria Ur Culture Indicated? Micro UA Comment Nasal Screen MRSA (PCR) U Opiates 300ng/mL cut Ur Oxycodone Screen Urine Methadone Screen Ur Barbiturates Screen U Tricyclic Antidepress Ur Phencyclidine Scrn Ur Amphetamines Screen U Methamphetamines Scrn Ur MDMA Scrn (Ecstasy) U Benzodiazepines Scrn Urine Cocaine Screen U Marijuana (THC) Screen SARS-CoV-2 (PCR) 12/23/21 12/23/21 06:00 06:00 WBC RBC Hgb Hct MCV MCH MCHC RDW Plt Count Neut % (Auto) Lymph % (Auto) [place] % (Auto) Eos % (Auto) Baso % (Auto) Neut # (Auto) Lymph # (Auto) [place] # (Auto) Eos # (Auto) Baso # (Auto) ABG pH ABG pCO2 ABG pO2 ABG HCO3 ABG Total CO2 ABG O2 Saturation ABG Base Excess FiO2 Sodium Potassium Chloride Carbon Dioxide BUN Creatinine Estimated GFR BUN/Creatinine Ratio Glucose Lactate Calcium Magnesium 2.1 Total Bilirubin AST ALT Alkaline Phosphatase Total Creatine Kinase CK-MB (CK-2) CK-MB (CK-2) Rel Index Troponin I NT-Pro-B Natriuret Pep Total Protein Albumin Globulin Albumin/Globulin Ratio TSH 1.79 Urine Color Urine Appearance Urine pH Ur Specific [place] Urine Protein Urine Glucose (UA) Urine Ketones Urine Occult Blood Urine Nitrate Urine Bilirubin Urine Urobilinogen Ur Leukocyte Esterase Urine RBC Urine WBC Urine Bacteria Ur Culture Indicated? Micro UA Comment Nasal Screen MRSA (PCR) U Opiates 300ng/mL cut Ur Oxycodone Screen Urine Methadone Screen Ur Barbiturates Screen U Tricyclic Antidepress Ur Phencyclidine Scrn Ur Amphetamines Screen U Methamphetamines Scrn Ur MDMA Scrn (Ecstasy) U Benzodiazepines Scrn Urine Cocaine Screen U Marijuana (THC) Screen SARS-CoV-2 (PCR) [facility] Medical History Acute on chronic HFrEF (heart failure with reduced ejection fraction) Anticoagulant prescribed at discharge Cardiomyopathy Congestive heart failure Hypertension Social History household members: significant other and children Smoking Status: Current some day smoker alcohol intake: never Assessment & Plan Assessment & Plan narrative: Patient is currently stable and not consistent with ICU status. 1. Acute on chronic heart failure with reduced ejection fraction, present on admission ED discussed patient's care with Cardiology in the recommend diuresis, maintaining home medications, and obtaining an echocardiogram in the morning. Echo is pending. Review all home medicines and determine what should be given. Continue home dose of metoprolol and lisinopril Rising troponin slightly. Consistent with demand ischemia patient may have increased baseline troponin due to chronic reduced ejection fraction. ProBNP elevated at almost 9000 on presentation. Diuresis should benefit this. After 3 days of intravenous diuresis will switch to oral diuresis. 1000 mL fluid restriction with strict Is and Os initially. Increased to 1500 mL restriction per day and allow ice chips. 2. Atrial fibrillation likely chronic. Patient is anticoagulated on apixaban 5 mg p.o. b.i.d. and will continue this 3.History of methamphetamine dependence. Patient was counseled on admission. Continue to reinforce. 4. VTE Prophylaxis: Bilateral SCDs? Patient is currently anticoagulated on apixaban. 5. FEN: IV fluids: saline lock, diet: heart healthy low sodium diet 6 Consultants? Intercept ICU care and involvement during ICU stay. 7. Dispo: probable d/c to home when stable with re-referral to Cardiology 8. Code status: Full Code as discussed with the patient previously. Time Spent With Patient Critical Care time: I spent a total of [] minutes of critical care time on this patient's care today; this time is exclusive of procedural time. Quality VTE Deep Vein Thrombosis/Pulmonary Embolism Present on Admission: No
[2021-12-23] MEDS: METOPROLOL ER 25 MG TABLET PO ×2 (10:12→21:44)
[2021-12-23] MEDS: APIXABAN 5 MG TABLET PO ×2 (10:12→21:45)
[2021-12-23 11:47] LABS: Creatine Kinase 74 U/L (55-170)
--- NOTE | 2021-12-23 15:00 | CM.DANOTE ---
Patient is a 66 yo male who was admitted on 12/23/21 this morning for SOB. Pt has [employer] AD[employer] for insurance and has no PCP. EMR was reviewed. Per MD, pt with meth induced heart failure, EF 15%, AFIB and UDS+meth. Per RN, pt now floor care and utilizing CPAP and NC oxygen and pt is not on oxygen at baseline. Per MD, pt making improvements and denies any recent meth use and states last use was August 2021 and recently was admitted to [facility] and discharged to home prior to recommended interventions and was referred to [facility] and pt did not follow through but is agreeable now. SW met bedside with pt and explained role and he confirms he lives in [place] with Sig Other and family and confirms he has no established PCP but would like to get established with PCP in [place] and agreeable with getting a PCP list. Pt also denies any hx of home oxygen or HH or SNF and preference is home via family POV and states they are in the process of moving to [place]. Pt does not anticipate any needs and declines HH at this time and does not feel he needs [facility] outpt resources. Plan: SW to follow for providing pt a PCP list for [place] providers and to r/o any HH needs. BELL Solorzano Discharge Planning/Care Management CM Discharge Assessment Start: 12/23/21 14:57 Freq: Status: Active Protocol: Document 12/23/21 14:57 BF (Rec: 12/23/21 15:00 BF [id number]) Discharge Planning Assessment Assigned Brisket Puller BELL Kidd DPOA/Assigned Designee Name informally sig other Advance Directives? No Advance Directives on File No History Provided By Patient,Family Member,Medical Record Has Patient been admitted in last 30 No days? Prior Living Arrangements House Household Members significant other,children Type of transporation used prior to Relies on Others admit Independent with ADL's Yes Is patient alert and oriented? Yes Needs Assistance With Managing Medications,Home Chores / Shopping Caregiver for Another No Barriers to Discharge No Discharge Plan Home Transportation Arrangement family plans to transport Additional Comment r/o HH Whiteboard Updated in Patient Room with Yes name and ext. # of Brisket Puller Review Status In Process Please Provide Date Initial DC 12/23/21 Assessment Was Performed Next Review Type Continued Stay Review
[2021-12-23] MEDS: ACETAMINOPHEN 325 MG TABLET 650 MG PO (18:04)
[2021-12-23 18:27] LABS: BUN Creatinine Ratio 23.9 (6-22); Blood Urea Nitrogen 33 mg/dL (9-20); Calcium 8.4 mg/dL (8.4-10.2); Carbon Dioxide 29 mmol/L (22-32); Chloride 100 mmol/L (98-107); Creatine Kinase 80 U/L (55-170); Estimated Glomerular Filt Rate 56 mL/min (>60); Glucose 101 mg/dL (80-110); HEMOLYSIS 16 (0-50); Potassium 4.4 mmol/L (3.4-5.1); Sodium 138 mmol/L (137-145)
[2021-12-23 18:54] LABS: Troponin I 0.174 ng/mL (0.01-0.034)
[2021-12-24] VITALS (14 sets, daily range): BP systolic 93–138; BP diastolic 74–84; PULSE 68–95; RESP 16–39; TEMP 36.1–37.1; O2SAT 93–99
[2021-12-24 00:06] LABS: Creatine Kinase 82 U/L (55-170)
[2021-12-24 00:24] LABS: Troponin I 0.163 ng/mL (0.01-0.034)
[2021-12-24] MEDS: FUROSEMIDE 100 MG/10 ML VIAL 60 MG IV ×3 (05:04→23:43)
[2021-12-24 06:51] LABS: Add Manual Diff / Slide Review NO; Basophils Absolute Auto 100 /uL (0-100); Basophils Percent Auto 0.9 % (0-2); Eosinophils Absolute Auto 0 /uL (0-450); Eosinophils Percent Auto 0.4 % (2-4); Hematocrit 44.5 % (41-53); Hemoglobin 14.8 g/dL (13.5-17.5); Lymphocytes Absolute Auto 2300 /uL (1100-4500); Lymphocytes Percent Auto 22.4 % (25-40); Mean Corpuscular HGB Conc 33.3 % (30-36); Mean Corpuscular Hemoglobin 30.6 PG (26-34); Mean Corpuscular Volume 92.1 fL (80-100); Monocytes Absolute Auto 900 /uL (0-900); Neutrophils Absolute Auto 6900 /uL (1500-7000); Neutrophils Percent Auto 67.3 % (50-75); Platelet Count 226 X10^3/uL (150-400); Red Blood Cell Count 4.84 X10^6/uL (4.5-5.9); Red Cell Distribution Width 16.3 % (11.6-14.8); White Blood Cell Count 10.2 X10^3/uL (4.5-11.0)
[2021-12-24 07:03] LABS: Alanine Aminotransferase 45 IU/L (<50); Albumin 3.7 g/dL (3.5-5.0); Albumin Globulin Ratio 1.2 (1.0-2.8); Alkaline Phosphatase 95 U/L (38-126); Aspartate Aminotransferase 66 IU/L (17-59); Bilirubin Total 1.6 mg/dL (0.2-1.3); Blood Urea Nitrogen 37 mg/dL (9-20); Calcium 8.6 mg/dL (8.4-10.2); Carbon Dioxide 30 mmol/L (22-32); Chloride 98 mmol/L (98-107); Estimated Glomerular Filt Rate 57 mL/min (>60); Glucose 108 mg/dL (80-110); HEMOLYSIS < 15 (0-50); Magnesium 2.2 mg/dL (1.6-2.3); Potassium 4.6 mmol/L (3.4-5.1); Sodium 137 mmol/L (137-145); Total Protein 6.7 g/dL (6.3-8.2)
[2021-12-24 07:15] LABS: Troponin I 0.133 ng/mL (0.01-0.034)
--- NOTE | 2021-12-24 08:04 | DI.ECHO.S_ITS ---
[facility] +---------+ [facility] +---------+ : : [address] : [place] : : : : [id number] : : : : Phone: [phone] Echocardiogram Report + + :Name: KATHERINE ESPINOSA Study Date: 12/24/2021 Height: 70 in : :[facility] ReadingLocation: Weight: 245 lb : : Gender: Male BSA: 2.3 m2 : :: 1955 Age: 66 yrs BP: 125/58 mmHg: :Reason For Study: SYSTOLIC HEART MURMUR, CONGESTIVE HEART : :FAILURE, DECREASED EF : :Ordering Physician: MARCIE, : :ERNESTO DESIR Performed By: Anika Knapp : :Referring: ERNESTO JACK MD : + + Interpretation Summary The left ventricle is moderate-severely dilated. The ejection fraction is estimated to be 15-20%. Diastolic function could not be accurately assessed due to unobtainable data. The right ventricle is moderately dilated. Right ventricular systolic function is moderate to severely reduced. Both atria are severely dilated. There is moderate mitral regurgitation. There is moderate to severe tricuspid regurgitation. The right ventricular systolic pressure is estimated to be at least 35 mmHg based on an estimated right atrial pressure of 15 mm Hg. Procedure: A two-dimensional transthoracic echocardiogram with color flow and Doppler was performed. The study quality was technically good. There is no prior echocardiogram noted for this patient. The heart rate ranged between 74- 93 bpm during the study. The patient had occasional PACs during the exam. Left Ventricle: There is mild-moderate concentric left ventricular hypertrophy. The left ventricle is moderate-severely dilated. The estimated left ventricular end diastolic volume is 243 ml. The ejection fraction is estimated to be 15-20%. There is severe global hypokinesis of the left ventricle. Diastolic function could not be accurately assessed due to unobtainable data. Right Ventricle: The right ventricle is moderately dilated. Right ventricular systolic function is moderate to severely reduced. Atria: Both atria are severely dilated. There is no Doppler evidence for an interatrial shunt. Mitral Valve: The mitral valve leaflets appear mildly thickened, but open well. There is moderate mitral regurgitation. The mitral regurgitant jet is eccentrically directed. There are multiple regurgitant jets present. Aortic Valve: The aortic valve is trileaflet. The aortic valve opens well. The aortic valve is slightly calcified. There is no aortic valve stenosis. No aortic regurgitation is present. Tricuspid Valve: The tricuspid valve leaflets are thin and pliable. There is moderate to severe tricuspid regurgitation. The right ventricular systolic pressure is estimated to be at least 35 mmHg based on an estimated right atrial pressure of 15 mm Hg. Pulmonic Valve: The pulmonic valve is not well visualized. Great Vessels: The aortic root is normal size. The dimensions of the ascending aorta are normal. The IVC is dilated (diameter is greater than 2.1 cm) and it collapses less than 50% with a sniff. This suggests a high right atrial pressure of 15 mm Hg. Pericardium/ Pleura There is no pericardial effusion. There is no pleural effusion. MMode/2D Measurements & Calculations LVIDd: 6.5 cm LVOT diam: 2.3 cm LVIDs: 5.9 cm Ao root diam: 3.7 cm FS: 9.6 % asc Aorta Diam: 3.7 cm EPSS: 1.8 cm IVSd: 1.4 cm LVPWd: 1.4 cm LV reddy. diameter/BSA (cm/m^2): 2.9 LV sys. diameter/BSA (cm/m^2): 2.6 LA A2 area: 32.8 cm2 RA long axis: 6.9 cm LA A4 area: 45.9 cm2 RA area: 37.9 cm2 LA length (vol): 7.9 cm RA vol: 177.6 ml LA vol: 161.0 ml RA : 78.0 ml/m2 LA vol index: 70.8 ml/m2 IVC diam: 3.0 cm RVD1 (basal): 5.1 cm RVD2 (mid): 4.3 cm TAPSE: 1.5 cm Doppler Measurements & Calculations Ao V2 max: 141.2 cm/sec LVOT Max Sebastian: 50.0 cm/sec Ao V2 mean: 98.2 cm/sec LV V1 max P.0 mmHg Ao max P.2 mmHg LV V1 VTI: 7.6 cm Ao mean P.6 mmHg FERCHO(I,D): 1.3 cm2 Ao V2 VTI: 24.9 cm FERCHO(V,D): 1.5 cm2 sev ratio: 0.31 FERCHO indexed to BSA (cm^2/m^2): 0.58 MV E max sebastian: 89.1 cm/sec TR max sebastian: 219.8 cm/sec MV A max sebastian: 2.0 cm/sec TR max P.3 mmHg MV E/A: 45.5 PA pr(Accel): 34.5 mmHg Med Peak E' Sebastian: 4.9 cm/sec E/E' med: 18.3 Lat Peak E' Sebastian: 10.3 cm/sec E/E' lat: 8.6 E/e' average: 13.5 MV dec time: 0.21 sec SV(LVOT): 32.9 ml Reading Physician:01:00 PM
--- NOTE | 2021-12-24 08:20 | P.PN_ITS ---
Subjective Subjective Date Patient Seen: 12/24/21 Time Patient Seen: 08:00 Interval history: Getting significant shortness of breath when not having his oxygen being supplied sufficiently. With lower extremity edema. No other new complaints. Exam Vital Signs (past 8 hours): - 12/24/21 00:44 12/24/21 03:37 Temperature 97.3 F L 98.0 F Pulse Rate 69 68 Respiratory Rate 39 H 22 Blood Pressure 93/74 128/82 Pulse Oximetry 94 93 Oxygen Flow Rate 5 0 Fraction of Inspired Oxygen 40 Oxygen Delivery Method CPAP Oxygen Flow Rate 0 Narrative Exam Narrative: Patient appears comfortable resting in bed with oxygen supplementation. No apparent acute distress. HEENT: Normocephalic. Trachea midline. Oxygen supplementation by nasal prongs in place. Pupils equal reactive to light. Extraocular movements normal. Neck is supple. Neck nodes are nontender and nonpalpable Cardiovascular: Sounds S1 and S2. Systolic murmur 2/6. No pedal edema peripheral pulses normal bilaterally. Respiratory: Adequate air entry throughout the lung quigley. Crackles at the bases. Gastrointestinal: Abdomen is soft. Bowel sounds normal. General abdominal obesity. Skin: As psoriasis rashes on arms and legs. No new lesions. Musculoskeletal: Able to move all extremities volitionally. No localized strength deficits. Neuro: Normal sensation of all extremities. Alert and oriented x3 Psych: Slight anxiety but essentially normal mood and affect. Objective Labs Result Diagrams: 12/24/21 06:15 12/24/21 06:15 Labs: Laboratory Results - last 24 hr 12/23/21 12/23/21 12/23/21 10:15 18:00 18:00 WBC RBC Hgb Hct MCV MCH MCHC RDW Plt Count Neut % (Auto) Lymph % (Auto) [place] % (Auto) Eos % (Auto) Baso % (Auto) Neut # (Auto) Lymph # (Auto) [place] # (Auto) Eos # (Auto) Baso # (Auto) Sodium 138 Potassium 4.4 Chloride 100 Carbon Dioxide 29 BUN 33 H Creatinine 1.38 H Estimated GFR 56 L BUN/Creatinine Ratio 23.9 H Glucose 101 Calcium 8.4 Magnesium 2.0 Total Bilirubin AST ALT Alkaline Phosphatase Total Creatine Kinase 74 80 CK-MB (CK-2) TNP TNP CK-MB (CK-2) Rel Index TNP TNP Troponin I 0.200 H* 0.174 H* Total Protein Albumin Globulin Albumin/Globulin Ratio 12/23/21 12/24/21 12/24/21 23:48 06:15 06:15 WBC 10.2 RBC 4.84 Hgb 14.8 Hct 44.5 MCV 92.1 MCH 30.6 MCHC 33.3 RDW 16.3 H Plt Count 226 Neut % (Auto) 67.3 Lymph % (Auto) 22.4 L [place] % (Auto) 9.0 Eos % (Auto) 0.4 L Baso % (Auto) 0.9 Neut # (Auto) 6900 Lymph # (Auto) 2300 [place] # (Auto) 900 Eos # (Auto) 0 Baso # (Auto) 100 Sodium 137 Potassium 4.6 Chloride 98 Carbon Dioxide 30 BUN 37 H Creatinine 1.37 H Estimated GFR 57 L BUN/Creatinine Ratio 27.0 H Glucose 108 Calcium 8.6 Magnesium 2.2 Total Bilirubin 1.6 H AST 66 H ALT 45 Alkaline Phosphatase 95 Total Creatine Kinase 82 CK-MB (CK-2) TNP CK-MB (CK-2) Rel Index TNP Troponin I 0.163 H* Total Protein 6.7 Albumin 3.7 Globulin 3.0 Albumin/Globulin Ratio 1.2 12/24/21 06:15 WBC RBC Hgb Hct MCV MCH MCHC RDW Plt Count Neut % (Auto) Lymph % (Auto) [place] % (Auto) Eos % (Auto) Baso % (Auto) Neut # (Auto) Lymph # (Auto) [place] # (Auto) Eos # (Auto) Baso # (Auto) Sodium Potassium Chloride Carbon Dioxide BUN Creatinine Estimated GFR BUN/Creatinine Ratio Glucose Calcium Magnesium Total Bilirubin AST ALT Alkaline Phosphatase Total Creatine Kinase CK-MB (CK-2) CK-MB (CK-2) Rel Index Troponin I 0.133 H* Total Protein Albumin Globulin Albumin/Globulin Ratio [facility] Medical History Acute on chronic HFrEF (heart failure with reduced ejection fraction) Anticoagulant prescribed at discharge Cardiomyopathy Congestive heart failure Hypertension Social History household members: significant other and children Smoking Status: Current some day smoker alcohol intake: never Assessment & Plan Assessment & Plan narrative: 1. Acute on chronic heart failure with reduced ejection fraction, present on admission ED discussed patient's care with Cardiology in the recommend diuresis, maintaining home medications, and obtaining an echocardiogram in the morning.? Echo is still pending.? Continue home dose of metoprolol and lisinopril. Spironolactone and Bumex for diuresis added. Goal is to be on regular doses of oral medications prior to discharge. Troponin trending downward. Continue to follow. Consistent with demand ischemia patient may have increased baseline troponin due to chronic reduced ejection fraction. ProBNP elevated at almost 9000 on presentation. Diuresis should benefit this.? Repeat in the morning to assess level. 1500 mL restriction per day and allow ice chips. Salt restricted cardiac diet. 2. Atrial fibrillation likely chronic. Patient is anticoagulated on apixaban 5 mg p.o. b.i.d. and will continue this 3.History of methamphetamine dependence.? Patient was counseled on admission.? Continue to reinforce. 4. VTE Prophylaxis:? Bilateral SCDs? Patient is currently anticoagulated on apixaban. 5. FEN: IV fluids: saline lock, diet: heart healthy low sodium diet 6 Consultants? Intercept ICU care and involvement during ICU stay. 7. Dispo: probable d/c to home when stable with re-referral to Cardiology 8. Code status: Full Code as discussed with the patient previously.? Time Spent With Patient Critical Care time: I spent a total of [] minutes of critical care time on this patient's care today; this time is exclusive of procedural time. Quality VTE Deep Vein Thrombosis/Pulmonary Embolism Present on Admission: No
[2021-12-24] MEDS: METOPROLOL ER 25 MG TABLET PO ×2 (09:04→20:52)
[2021-12-24] MEDS: APIXABAN 5 MG TABLET PO ×2 (09:04→20:52)
[2021-12-24] MEDS: SPIRONOLACTONE 25 MG TABLET PO (09:04)
[2021-12-24] MEDS: BUMETANIDE 1 MG TABLET PO (09:04)
[2021-12-24] MEDS: lisinopriL 5 MG TABLET 2.5 MG PO (09:05)
[2021-12-24 14:27] LABS: Troponin I 0.112 ng/mL (0.01-0.034)
[2021-12-24] MEDS: diazePAM 2 MG TABLET PO (15:10)
[2021-12-24 19:23] LABS: Troponin I 0.114 ng/mL (0.01-0.034)
[2021-12-25] VITALS (10 sets, daily range): BP systolic 85–121; BP diastolic 61–81; PULSE 69–86; RESP 12–22; TEMP 36–36.7; O2SAT 93–99
[2021-12-25] MEDS: diazePAM 2 MG TABLET PO ×2 (01:22→20:55)
[2021-12-25 04:50] LABS: Add Manual Diff / Slide Review NO; Basophils Absolute Auto 100 /uL (0-100); Eosinophils Absolute Auto 100 /uL (0-450); Eosinophils Percent Auto 0.7 % (2-4); Hematocrit 43.6 % (41-53); Hemoglobin 14.8 g/dL (13.5-17.5); Lymphocytes Absolute Auto 2500 /uL (1100-4500); Mean Corpuscular HGB Conc 33.9 % (30-36); Mean Corpuscular Hemoglobin 30.8 PG (26-34); Mean Corpuscular Volume 90.8 fL (80-100); Monocytes Absolute Auto 1100 /uL (0-900); Monocytes Percent Auto 10.6 % (3-14); Neutrophils Absolute Auto 6400 /uL (1500-7000); Neutrophils Percent Auto 62.7 % (50-75); Platelet Count 218 X10^3/uL (150-400); White Blood Cell Count 10.2 X10^3/uL (4.5-11.0)
[2021-12-25 05:03] LABS: Alanine Aminotransferase 56 IU/L (<50); Albumin 3.6 g/dL (3.5-5.0); Albumin Globulin Ratio 1.2 (1.0-2.8); Alkaline Phosphatase 93 U/L (38-126); Aspartate Aminotransferase 71 IU/L (17-59); BUN Creatinine Ratio 31.1 (6-22); Bilirubin Total 1.2 mg/dL (0.2-1.3); Bilirubin Unconjugated 1.1 mg/dL (0.0-1.1); Blood Urea Nitrogen 37 mg/dL (9-20); Calcium 7.9 mg/dL (8.4-10.2); Carbon Dioxide 32 mmol/L (22-32); Chloride 98 mmol/L (98-107); Estimated Glomerular Filt Rate > 60 mL/min (>60); Globulin 3.1 g/dL (1.7-4.1); Glucose 89 mg/dL (80-110); HEMOLYSIS < 15 (0-50); Potassium 4.2 mmol/L (3.4-5.1); Sodium 137 mmol/L (137-145); Total Protein 6.7 g/dL (6.3-8.2)
[2021-12-25 05:04] LABS: Magnesium 2.1 mg/dL (1.6-2.3)
[2021-12-25 05:15] LABS: NT-proBNP (BNP-Adult 18+) 3190 pg/mL (<125); Troponin I 0.115 ng/mL (0.01-0.034)
[2021-12-25] MEDS: SPIRONOLACTONE 25 MG TABLET PO (08:13)
[2021-12-25] MEDS: lisinopriL 5 MG TABLET 2.5 MG PO (08:13)
[2021-12-25] MEDS: METOPROLOL ER 25 MG TABLET PO ×2 (08:14→20:55)
[2021-12-25] MEDS: APIXABAN 5 MG TABLET PO ×2 (08:14→20:55)
[2021-12-25] MEDS: FUROSEMIDE 100 MG/10 ML VIAL 60 MG IV ×3 (08:14→23:22)
[2021-12-25] MEDS: BUMETANIDE 1 MG TABLET PO (08:52)
--- NOTE | 2021-12-25 17:49 | P.PN_ITS ---
Subjective Subjective Date Patient Seen: 12/25/21 Time Patient Seen: 17:30 Interval history: Would like to go home with home oxygen. Discuss having respiratory therapy assess his oxygen needs so he can be discharged with oxygen. Also need to fully have the patient on oral medication. Exam Vital Signs (past 8 hours): - 12/25/21 12:00 12/25/21 15:52 12/25/21 16:37 Temperature 97.2 F L 98.0 F Pulse Rate 86 69 Respiratory Rate 22 12 Blood Pressure 85/61 L 103/73 Pulse Oximetry 99 99 Oxygen Flow Rate 7 Fraction of Inspired Oxygen 40 Oxygen Delivery Method Nasal Cannula Oxygen Flow Rate 7 Narrative Exam Narrative: Patient appears comfortable resting in bed with oxygen supplementation.? No apparent acute distress. HEENT:? Normocephalic.? Trachea midline.? Oxygen supplementation by nasal prongs in place.? Pupils equal reactive to light.? Extraocular movements normal.? Neck is supple.? Neck nodes are nontender and nonpalpable Cardiovascular:? Sounds S1 and S2.? Systolic murmur 2/6.? No pedal edema, peripheral pulses normal bilaterally. Respiratory:? Adequate air entry throughout the lung quigley.? Crackles very intermittently minimal at the bases. Gastrointestinal:? Abdomen is soft.? Bowel sounds normal.? General abdominal obesity. Skin:? As psoriasis rashes on arms and legs.? No new lesions. Musculoskeletal:? Able to move all extremities volitionally.? No localized strength deficits.? Neuro:? Normal sensation of all extremities.? Alert and oriented x3 Psych:? Slight anxiety but essentially normal mood and affect. Objective Labs Result Diagrams: 12/25/21 04:13 12/25/21 04:13 Labs: Laboratory Results - last 24 hr 12/24/21 12/25/21 12/25/21 18:45 04:13 04:13 WBC 10.2 RBC 4.80 Hgb 14.8 Hct 43.6 MCV 90.8 MCH 30.8 MCHC 33.9 RDW 16.0 H Plt Count 218 Neut % (Auto) 62.7 Lymph % (Auto) 25.0 [place] % (Auto) 10.6 Eos % (Auto) 0.7 L Baso % (Auto) 1.0 Neut # (Auto) 6400 Lymph # (Auto) 2500 [place] # (Auto) 1100 H Eos # (Auto) 100 Baso # (Auto) 100 Sodium Potassium Chloride Carbon Dioxide BUN Creatinine Estimated GFR BUN/Creatinine Ratio Glucose Calcium Magnesium 2.1 Total Bilirubin Conjugated Bilirubin Unconjugated Bilirubin AST ALT Alkaline Phosphatase Troponin I 0.114 H NT-Pro-B Natriuret Pep Total Protein Albumin Globulin Albumin/Globulin Ratio 12/25/21 04:13 WBC RBC Hgb Hct MCV MCH MCHC RDW Plt Count Neut % (Auto) Lymph % (Auto) [place] % (Auto) Eos % (Auto) Baso % (Auto) Neut # (Auto) Lymph # (Auto) [place] # (Auto) Eos # (Auto) Baso # (Auto) Sodium 137 Potassium 4.2 Chloride 98 Carbon Dioxide 32 BUN 37 H Creatinine 1.19 Estimated GFR > 60 BUN/Creatinine Ratio 31.1 H Glucose 89 Calcium 7.9 L Magnesium Total Bilirubin 1.2 Conjugated Bilirubin 0.0 Unconjugated Bilirubin 1.1 AST 71 H ALT 56 H Alkaline Phosphatase 93 Troponin I 0.115 H NT-Pro-B Natriuret Pep 3190 H Total Protein 6.7 Albumin 3.6 Globulin 3.1 Albumin/Globulin Ratio 1.2 [facility] Medical History Acute on chronic HFrEF (heart failure with reduced ejection fraction) Anticoagulant prescribed at discharge Cardiomyopathy Congestive heart failure Hypertension Social History household members: significant other and children Smoking Status: Current some day smoker alcohol intake: never Assessment & Plan Assessment & Plan narrative: 1. Acute on chronic heart failure with reduced ejection fraction, present on admission ED discussed patient's care with Cardiology in the recommend diuresis, maintaining home medications, and obtaining an echocardiogram in the morning.? Echo social ejection fraction of 15-20%.?? Continue home dose of metoprolol and lisinopril.? Spironolactone and Bumex for diuresis added.? Goal is to be on regular doses of oral medications prior to discharge.? Troponin trending downward.? Continue to follow.? Consistent with demand ischemia patient may have increased baseline troponin due to chronic reduced ejection fraction. ProBNP elevated at almost 9000 on presentation. Diuresis should benefit this.? Repeat value today of 3109. This is significant improvement 1500 mL restriction per day and allow ice chips.? Salt restricted cardiac diet. 2. Atrial fibrillation likely chronic. Patient is anticoagulated on apixaban 5 mg p.o. b.i.d. and will continue this 3.History of methamphetamine dependence.? Patient was counseled on admission.? Continue to reinforce. He now feels that he should discontinue this use. Apparently only was using intermittently when wanting the feeling of the high. This has been ongoing since age 14. 4. VTE Prophylaxis:? Bilateral SCDs? Patient is currently anticoagulated on apixaban. 5. FEN: IV fluids: saline lock, diet: heart healthy low sodium diet 6 Consultants? Intercept ICU care and involvement during ICU stay. 7. Dispo: probable d/c to home when stable with re-referral to Cardiology 8. Code status: Full Code as discussed with the patient previously.? Time Spent With Patient Critical Care time: I spent a total of [] minutes of critical care time on this patient's care today; this time is exclusive of procedural time. Quality VTE Deep Vein Thrombosis/Pulmonary Embolism Present on Admission: No
[2021-12-26] VITALS: BP 126/63; PULSE 71; RESP 20; TEMP 36.3; O2SAT 98
[2021-12-26 04:00] VITALS: BP 102/63; PULSE 81; RESP 16; TEMP 36.4; O2SAT 100
[2021-12-26 05:30] LABS: Add Manual Diff / Slide Review NO; Basophils Absolute Auto 100 /uL (0-100); Basophils Percent Auto 0.8 % (0-2); Eosinophils Absolute Auto 100 /uL (0-450); Eosinophils Percent Auto 1.4 % (2-4); Hemoglobin 15.4 g/dL (13.5-17.5); Lymphocytes Absolute Auto 2600 /uL (1100-4500); Lymphocytes Percent Auto 25.5 % (25-40); Mean Corpuscular HGB Conc 33.6 % (30-36); Mean Corpuscular Hemoglobin 30.9 PG (26-34); Monocytes Absolute Auto 1000 /uL (0-900); Neutrophils Absolute Auto 6300 /uL (1500-7000); Neutrophils Percent Auto 62.3 % (50-75); Platelet Count 232 X10^3/uL (150-400); Red Cell Distribution Width 16.6 % (11.6-14.8); White Blood Cell Count 10.1 X10^3/uL (4.5-11.0)
[2021-12-26 05:40] LABS: Alanine Aminotransferase 51 IU/L (<50); Albumin 3.9 g/dL (3.5-5.0); Albumin Globulin Ratio 1.2 (1.0-2.8); Alkaline Phosphatase 92 U/L (38-126); Aspartate Aminotransferase 55 IU/L (17-59); BUN Creatinine Ratio 30.6 (6-22); Blood Urea Nitrogen 38 mg/dL (9-20); Calcium 8.1 mg/dL (8.4-10.2); Carbon Dioxide 37 mmol/L (22-32); Chloride 95 mmol/L (98-107); Estimated Glomerular Filt Rate > 60 mL/min (>60); Globulin 3.3 g/dL (1.7-4.1); Glucose 91 mg/dL (80-110); HEMOLYSIS 19 (0-50); Potassium 4.5 mmol/L (3.4-5.1); Sodium 138 mmol/L (137-145); Total Protein 7.2 g/dL (6.3-8.2)
[2021-12-26 05:41] LABS: Magnesium 2.4 mg/dL (1.6-2.3)
[2021-12-26 05:52] LABS: Troponin I 0.089 ng/mL (0.01-0.034)
--- NOTE | 2021-12-26 06:29 | PC.NURSE ---
Patient resting in bed most of the shift. Using urinal in bed. Patient denied any discomfort. Started on 6L HHF now on 5L w/sats mid 90s. Patient has been A&O, calm and cooperative.
[2021-12-26 08:00] VITALS: BP 141/110; PULSE 72; RESP 30; TEMP 36.1; O2SAT 99
[2021-12-26 08:22] VITALS: BP 102/63; PULSE 73
[2021-12-26] MEDS: METOPROLOL ER 25 MG TABLET PO (08:22)
[2021-12-26 08:23] VITALS: BP 102/63; PULSE 78
[2021-12-26] MEDS: lisinopriL 5 MG TABLET 2.5 MG PO (08:23)
[2021-12-26] MEDS: BUMETANIDE 1 MG TABLET PO (08:23)
[2021-12-26] MEDS: FUROSEMIDE 40 MG TABLET 80 MG PO (08:24)
[2021-12-26] MEDS: APIXABAN 5 MG TABLET PO (08:25)
[2021-12-26] MEDS: SPIRONOLACTONE 25 MG TABLET PO (08:25)
--- NOTE | 2021-12-26 09:55 | RT ---
RT performed home O2 eval for possible Discharge. When pt was on Room air, Spo2 reading was not accurate due to pt's hand being cold and with correct reading pt's resting O2 on room air was 97%. After ambulation, SpO2 on room air read 92% and went down as far as 90%. Pt states he is not feeling shortness of breath and is ready to go home. Pt did not qualify for home O2 at this time and RN notified.
--- NOTE | 2021-12-26 10:16 | PM.DS.1 ---
History of Present Illness History of Present Illness Date Patient Seen: 12/26/21 Time Patient Seen: 10:00 Chief complaint: SOB, methamphetamine mediated heart failure Narrative: Patient has been stable off oxygen and able to ambulate without problem. Feels much better and eager to go home. Discharge Providers Provider Date of admission: 12/23/21 00:04 Discharge Date: 12/26/21 Primary care physician: Doctor Rob MD... Patient has a PCP with his [employer] insurance. Advised that he should go to the office tomorrow and make sure he has a follow-up. Consults: 12/23/21 00:10 Consult to Tele-customer insight analyst Routine Comment: Consulting Provider: [employer] Reason for consultation: Can [employer] services Has provider been notified: Yes 12/23/21 02:33 Consult to Certified Alcohol And Drug Counselor Routine Comment: 12/25/21 17:44 Consult to Respiratory Therapy Evaluate & Treat Comment: Assess for home oxygen and determine oxygen needs Physician Instructions: Evaluate and treat 12/26/21 09:23 Consult to Physical Therapy Evaluate & Treat Comment: Assess discharge readiness Physician Instructions: Evaluate and Treat Discharge provider: Sylvia Wilson MD Summary Hospital Course Discharge Diagnosis: Congestive heart failure exacerbation. In setting of severe cardiomyopathy. Hospital Course: Bunny Castillo is a 66 y.o. male with a history of methamphetamine use (stated last used in August 2021), methamphetamine mediated ischemic cardiomyopathy, heart failure with a reduced ejection fraction of 15%, presented to the ED with worsening shortness of breath. He denies chest pain, but endorses feeling bloated and when he exhales, feels though what he exhales is hot. Denies fever, sweats or chills, vomiting, dysurea, diarrhea or constipation. He has a history of sleep apnea. He does endorse not being able to walk any distance, unable to carry groceries, denies weight gain. Chest x-ray reported findings of mild to moderate interstitial pulmonary edema and cardiomegaly and increased opacity in the right lung representing possible superimposed infection versus pulmonary edema.? He is afebrile, blood pressure 108/67 heart rate 93 respiratory rate 14 oxygen saturation of 95% on 5 L, he weighs 100.5 kg with a BMI of 35.2.? His CBC is unremarkable, ABGs were within normal limits, glucose 117, total bilirubin was 2.8 His troponin has been slowly rising initially 0.182, 2 hours later was 0.189, and the midnight troponin was 0.199.? ProBNP was 8780, COVID 19 PCR is negative.? Patient was administered 80 mg of IV Lasix in the emergency department. During the hospital stay the patient was eventually stabilized and able to be off oxygen. At the time of discharge patient was on a different medication management and able to ambulate well without oxygen. BNP decreased to 3109. Troponin was stable at 0.089. Medication for diuresis had been increase with t.i.d. furosemide 80 mg and daily Bumex as well as spironolactone. Lisinopril and metoprolol were be prescribed for congestive heart failure management. Status at Discharge Cognitive/behavioral status at discharge: at baseline, oriented Functional status at discharge: independent ambulation Overall status at discharge: patient is back to baseline Exam Vital Signs (past 8 hours): - 12/26/21 04:00 12/26/21 08:22 12/26/21 08:23 Temperature 97.6 F Pulse Rate 81 73 78 Respiratory Rate 16 Blood Pressure 102/63 102/63 102/63 Pulse Oximetry 100 Oxygen Flow Rate 7 12/26/21 08:00 Temperature 96.9 F L Pulse Rate 72 Respiratory Rate 30 H Blood Pressure 141/110 H Pulse Oximetry 99 Oxygen Flow Rate 6 Fraction of Inspired Oxygen 40 Oxygen Delivery Method Nasal Cannula Oxygen Flow Rate 6 Narrative Exam Narrative: Patient appears comfortable resting in bed with oxygen supplementation.? No apparent acute distress. HEENT:? Normocephalic.? Trachea midline.? Oxygen supplementation by nasal prongs in place.? Pupils equal reactive to light.? Extraocular movements normal.? Neck is supple.? Neck nodes are nontender and nonpalpable Cardiovascular:? Sounds S1 and S2.? Systolic murmur 2/6.? No pedal edema, peripheral pulses normal bilaterally. Respiratory:? Adequate air entry throughout the lung quigley.? Crackles very intermittently minimal at the bases. Gastrointestinal:? Abdomen is soft.? Bowel sounds normal.? General abdominal obesity. Skin:? As psoriasis rashes on arms and legs.? No new lesions. Musculoskeletal:? Able to move all extremities volitionally.? No localized strength deficits.? Neuro:? Normal sensation of all extremities.? Alert and oriented x3 Psych:? Slight anxiety but essentially normal mood and affect. Objective Labs Result Diagrams: 12/26/21 04:40 12/26/21 04:40 Labs: Laboratory Results - last 24 hr 12/26/21 12/26/21 12/26/21 04:40 04:40 04:40 WBC 10.1 RBC 5.00 Hgb 15.4 Hct 46.0 MCV 92.0 MCH 30.9 MCHC 33.6 RDW 16.6 H Plt Count 232 Neut % (Auto) 62.3 Lymph % (Auto) 25.5 [place] % (Auto) 10.0 Eos % (Auto) 1.4 L Baso % (Auto) 0.8 Neut # (Auto) 6300 Lymph # (Auto) 2600 [place] # (Auto) 1000 H Eos # (Auto) 100 Baso # (Auto) 100 Sodium 138 Potassium 4.5 Chloride 95 L Carbon Dioxide 37 H BUN 38 H Creatinine 1.24 Estimated GFR > 60 BUN/Creatinine Ratio 30.6 H Glucose 91 Calcium 8.1 L Magnesium 2.4 H Total Bilirubin 1.0 AST 55 ALT 51 H Alkaline Phosphatase 92 Troponin I 0.089 H Total Protein 7.2 Albumin 3.9 Globulin 3.3 Albumin/Globulin Ratio 1.2 PFSH Medical History Acute on chronic HFrEF (heart failure with reduced ejection fraction) Anticoagulant prescribed at discharge Cardiomyopathy Congestive heart failure Hypertension Social History household members: significant other and children Smoking Status: Current some day smoker alcohol intake: never Discharge Assessment & Plan Assessment and Plan Assessment: Ready for discharge. Plan of Treatment: Patient to obtain discharge medication at the pharmacy today and patient to go to his primary care provider office tomorrow and arrange for follow-up appointment. It was stressed to the patient that he needs to continue on his medications and he has only been given 1 month supply. He needs to follow up with his PCP. Discharge Plan Discharge Plan Patient Disposition: Home Discharge orders & Medications Prescriptions: New furosemide 40 mg Tablet 80 mg PO 0800,1200,1700 Qty: 180 0RF acetaminophen 325 mg Tablet 650 mg PO Q6HR PRN (Reason: Fever/Mild Pain (1-3)) Qty: 100 0RF spironolactone 25 mg Tablet 25 mg PO DAILY Qty: 30 0RF bumetanide 1 mg Tablet 1 mg PO DAILY Qty: 30 0RF lisinopril 5 mg Tablet 2.5 mg PO DAILY Qty: 30 0RF metoprolol succinate 25 mg Tablet Extended Release 24 Hr 25 mg PO BID Qty: 60 0RF Eliquis 5 mg Tablet 5 mg PO BID Qty: 60 0RF Continued metoprolol succinate 25 mg tablet extended release 24 hr 25 mg PO BID Label Comments: take 1 tablet by mouth twice a day lisinopril 2.5 mg tablet 2.5 mg PO DAILY Label Comments: take 1 tablet by mouth once daily Eliquis 5 mg tablet 5 mg PO BID Label Comments: take 1 tablet by mouth twice a day Discontinued furosemide 40 mg tablet 40 mg PO DAILY Label Comments: take 1 tablet by mouth once daily if needed Follow up/Referrals: Miscellaneous,DoctorMD [Primary Care Provider] - Diet/Activity/Treatments Diet: Low-sodium Discharge Data Primary Care Provider: Rob,Doctor Quality VTE Deep Vein Thrombosis/Pulmonary Embolism Present on Admission: No
--- NOTE | 2021-12-26 12:23 | CM.DPNOTE ---
DCP Note: Patient was discharged AMA this morning. Hospitalist counseled him on follow up with PCP. Geneva Espinoza RN, DCP
--- NOTE | 2021-12-26 13:15 | PT-IP ANOTE ---
Checked in room and pt not present. per EMR: pt left AMA
--- NOTE | 2021-12-26 13:30 | PC.NURSE ---
Pt announced he was leaving [place], he signed paperwork provided to him and was able to talk with Dr. Davila. Pt left the care of the hospital at approx. 1015
== END 2021-12-26 10:15 | disposition left against medical advice (07) | DRG 291 ==
LOC: ED 23:35 → ICU 12-23 03:35 → AC 12-26 08:25 → ICU 12-26 08:25
PROVIDERS: Emergency Medicine; Neuromusculoskeletal Medicine, Sports Medicine; Admitting Provider Nurse Practitioner Family; Emergency Provider Emergency Medicine; Referring Provider Emergency Medicine; Visit Provider Nurse Practitioner Family
DX: I11.0 Hypertensive heart disease with heart failure (principal); I50.23 Acute on chronic systolic (congestive) heart failure; J96.01 Acute respiratory failure with hypoxia; I24.8 Other forms of acute ischemic heart disease; I48.20 Chronic atrial fibrillation, unspecified; F15.20 Other stimulant dependence, uncomplicated; I42.7 Cardiomyopathy due to drug and external agent; G47.33 Obstructive sleep apnea (adult) (pediatric); Z20.822 Contact with and (suspected) exposure to COVID-19; Z79.01 Long term (current) use of anticoagulants
CPT/HCPCS: 36415; 36592; 36600; 71046; 80048; 80053; 80076; 80305; 81001; 82550; 82553; 82805; 83605; 83735; 83880; 84443; 84484; 85025; 87635; 87797; 93005; 93306; 94618; 94660; 94762; 96374; 99285; 99291; C9803; J1940

== ENCOUNTER 2022-02-13 10:53 | Inpatient (IN) | payer OTHER, SELFPAY ==
[2021-12-23 00:25] VITALS: BMI 35.2
[2021-12-23 04:00] VITALS: PULSE 97; RESP 20; O2SAT 100
[2022-02-13] VITALS (18 sets, daily range): BP systolic 88–152; BP diastolic 50–78; PULSE 40–149; RESP 14–35; TEMP 36.4–36.8; O2SAT 93–100; BMI 34.4
--- NOTE | 2022-02-13 11:11 | DI.RAD.S_ITS ---
PROCEDURE: XR CHEST 1V INDICATIONS: shortness of breath TECHNIQUE: One view of the chest was acquired. COMPARISON: [facility], CR, XR CHEST 2V, 12/22/2021, 18:54. FINDINGS: Surgical changes and devices: None. Lungs and pleura: Lung volumes are low. There is elevation of the right hemidiaphragm and probable atelectasis at the right lung base. Mediastinum: Mediastinal contours appear normal. Heart size is markedly enlarged. Bones and chest wall: No suspicious bony lesions. Overlying soft tissues appear unremarkable. IMPRESSION: Marked cardiomegaly. Elevated right hemidiaphragm and basilar atelectasis. Dictated by: Shima Del Rio M.D. on 02/13/2022 at 11:59 Approved by: Shima Del Rio M.D. on 02/13/2022 at 12:00
--- NOTE | 2022-02-13 11:20 | ED_ITS ---
HPI - General Adult General Chief complaint: Shortness of Breath/Dyspnea Stated complaint: Trouble breathing Time Seen by Provider: 02/13/22 11:16 Source: patient Mode of arrival: Wheelchair History of Present Illness HPI narrative: Patient is a 59-year-old male. Arrives to the emergency department for evaluation of progressively worsening shortness of breath on exertion for the past couple days. He denies chest pain. States he has been having some issues with his medications. He states that the pharmacy fill some of his medicines for 60 days and other medicines for only 30 days. He has been off of some of his medications for a period of time. Is not know exactly what medications those were. Is having lower extremity swelling. No palpitations. No abdominal pain. Related Data Home Medications Medication Instructions Recorded Confirmed apixaban 5 mg tablet (Eliquis) 5 mg PO BID 12/23/21 12/23/21 lisinopril 2.5 mg tablet 2.5 mg PO DAILY 12/23/21 12/23/21 Previous Rx's Medication Instructions Recorded acetaminophen 325 mg tablet 650 mg PO Q6HR PRN Fever/Mild Pain 12/26/21 (1-3) #100 tabs apixaban 5 mg tablet (Eliquis) 5 mg PO BID #60 tabs 12/26/21 bumetanide 1 mg tablet 1 mg PO DAILY #30 tabs 12/26/21 furosemide 40 mg tablet 80 mg PO 0800,1200,1700 #180 tabs 12/26/21 lisinopril 5 mg tablet 2.5 mg PO DAILY #30 tabs 12/26/21 metoprolol succinate 25 mg 25 mg PO BID #60 tabs 12/26/21 tablet,extended release 24 hr spironolactone 25 mg tablet 25 mg PO DAILY #30 tabs 12/26/21 Allergies Allergy/AdvReac Type Severity Reaction Status Date / Time No Known Drug Allergies Allergy Verified 02/13/22 11:11 Review of Systems Review of Systems ROS Unobtainable: All systems reviewed & are unremarkable except as noted in HPI and below Patient History Medical History Acute on chronic HFrEF (heart failure with reduced ejection fraction) Anticoagulant prescribed at discharge Cardiomyopathy Congestive heart failure Hypertension Surgical History No significant past surgical history Family History Father Congestive heart failure Cancer Mother No pertinent past medical history Social History household members: significant other and children Smoking Status: Current some day smoker alcohol intake: never Smoking Status: Current some day smoker alcohol intake frequency: holidays/special occasions only Substance Use Type: marijuana and methamphetamine Exam Initial Vital Signs Initial Vital Signs: Vital Signs Temperature 97.8 F 02/13/22 11:05 Pulse Rate 149 H 02/13/22 11:05 Respiratory Rate 35 H 02/13/22 11:05 Blood Pressure 152/70 H 02/13/22 11:05 Pulse Oximetry 95 02/13/22 11:05 Oxygen Delivery Method 02/13/22 11:05 Const General: cooperative, disheveled and No ill appearing HENMT Head: normal to inspection and normocephalic Resp Effort & Inspection: not labored and tachypneic Auscultation: clear to auscultation bilaterally Cardio Rate: tachycardic Rhythm: abnormal rhythm GI Inspection: normal to inspection Skin General: no rashes or lesions noted Neuro General: patient alert, patient awake and moves all extremities Extrem General: edema Psych Appearance: grossly normal and disheveled Course Orders Ordered: ED Orders 02/13/22 10:55 COVID19 -Nasal RAPID/Pre-Proc Stat 02/13/22 11:09 Complete Blood Count AUTO DIFF Stat Comprehensive Metabolic Panel Stat Lactate (Lactic Acid) Stat NT-proBNP (BNP-Adult 18+) Stat 02/13/22 11:10 EKG-12 Lead Stat 02/13/22 11:11 XR chest 1V Stat 02/13/22 11:20 Lipase Stat Prothrombin Time INR Stat Troponin & CK Cardiac Panel Stat 02/13/22 11:22 CT angio chest PE protocol Stat ABG [Arterial Blood Gas] Stat 02/13/22 11:44 Arterial Blood Gas Stat 02/13/22 13:11 Education, smoking cessation ONGOING 02/14/22 05:00 Complete Blood Count AUTO DIFF DAILY Comprehensive Metabolic Panel DAILY Magnesium DAILY 02/15/22 05:00 Complete Blood Count AUTO DIFF DAILY Comprehensive Metabolic Panel DAILY Magnesium DAILY 02/16/22 05:00 Complete Blood Count AUTO DIFF DAILY Comprehensive Metabolic Panel DAILY Magnesium DAILY Acetaminophen (Acetaminophen 325 Mg Tablet) 975 mg PO Q8H PRN PRN Reason: Pain, Mild (1-3) Apixaban (Apixaban 5 Mg Tablet) 5 mg PO BID MARLEEN Furosemide (Furosemide 100 Mg/10 Ml Vial) 60 mg IV 0800,1700 [facility] Metoprolol Succinate (Metoprolol Er 25 Mg Tablet) 25 mg PO BID MARLEEN Stored In Pharmacy 0 each PO PRN PRN PRN Reason: . Nystatin (Nystatin Powder 15gm) 1 applic TOP BID PRN PRN Reason: Rash Ondansetron HCl (Ondansetron 4 Mg/2 Ml Inj) 4 mg IV Q8HR PRN PRN Reason: Nausea And Vomiting Discontinued Medications Furosemide (Furosemide 100 Mg/10 Ml Vial) 60 mg IV NOW ONE Stop: 02/13/22 11:23 Last Admin: 02/13/22 11:30 Dose: 60 mg Documented By: AT Metoprolol Tartrate (Metoprolol Ir 25 Mg Tablet) 25 mg PO NOW ONE Stop: 02/13/22 11:23 Last Admin: 02/13/22 11:29 Dose: 25 mg Documented By: AT Vital Signs Vital signs: Vital Signs - 8 hr 02/13/22 11:05 02/13/22 11:05 02/13/22 11:06 Temperature 97.8 F Pulse Rate 149 H 40 L 41 L Respiratory Rate 35 H Blood Pressure 152/70 H Pulse Oximetry 95 Oxygen Delivery Method Room Air Oxygen Flow Rate 02/13/22 11:06 02/13/22 11:30 02/13/22 11:37 Temperature Pulse Rate 149 H 149 H Respiratory Rate 26 H 15 Blood Pressure 152/70 H Pulse Oximetry 99 98 Oxygen Delivery Method Nasal Cannula Nasal Cannula Oxygen Flow Rate 1 1 02/13/22 11:37 02/13/22 11:45 02/13/22 11:45 Temperature Pulse Rate 147 H Respiratory Rate 33 H Blood Pressure 89/56 L 99/56 L Pulse Oximetry 98 Oxygen Delivery Method Nasal Cannula Oxygen Flow Rate 1 02/13/22 12:00 02/13/22 12:01 02/13/22 12:01 Temperature Pulse Rate 145 H 144 H Respiratory Rate 24 17 Blood Pressure 116/53 L Pulse Oximetry 99 99 Oxygen Delivery Method Nasal Cannula Nasal Cannula Oxygen Flow Rate 1 1 02/13/22 12:15 02/13/22 12:15 02/13/22 12:30 Temperature Pulse Rate 138 H 146 H Respiratory Rate 31 H 23 Blood Pressure 111/50 L Pulse Oximetry 93 94 Oxygen Delivery Method Nasal Cannula Oxygen Flow Rate 2 02/13/22 12:31 02/13/22 12:31 Temperature Pulse Rate 143 H Respiratory Rate 25 H Blood Pressure 112/65 Pulse Oximetry 96 Oxygen Delivery Method Oxygen Flow Rate Medical Decision Making Lab Data Lab results reviewed: Yes I reviewed the patient's lab results. Result diagrams: 02/13/22 11:09 02/13/22 11:09 Labs: Lab Results 02/13/22 02/13/22 02/13/22 Range/Units 10:55 11:09 11:09 WBC 12.0 H (4.5-11.0) X10^3/uL RBC 5.50 (4.5-5.9) X10^6/uL Hgb 16.1 (13.5-17.5) g/dL Hct 49.7 (41-53) % MCV 90.4 (80-100) fL MCH 29.2 (26-34) PG MCHC 32.3 (30-36) % RDW 17.5 H (11.6-14.8) % Plt Count 185 (150-400) X10^3/uL Neut % (Auto) 59.9 (50-75) % Lymph % (Auto) 27.3 (25-40) % Dodge % (Auto) 8.8 (3-14) % Eos % (Auto) 2.9 (2-4) % Baso % (Auto) 1.1 (0-2) % Neut # (Auto) 7200 H (6843-5605) /uL Lymph # (Auto) 3300 (3891-2806) /uL Dodge # (Auto) 1100 H (0-900) /uL Eos # (Auto) 400 (0-450) /uL Baso # (Auto) 100 (0-100) /uL PT (10.1-12.7) SECONDS INR (0.9-1.3) ABG pH (7.35-7.45) ABG pCO2 (35-45) mmHg ABG pO2 (80-100) mmHg ABG HCO3 (22-26) mmol/L ABG Total CO2 (21-31) mmol/L ABG O2 Saturation (95-100) % ABG Base Excess (-2-2) mmol/L FiO2 Sodium 140 (137-145) mmol/L Potassium 4.9 (3.4-5.1) mmol/L Chloride 102 (98-107) mmol/L Carbon Dioxide 24 (22-32) mmol/L BUN 27 H (9-20) mg/dL Creatinine 1.33 H (0.66-1.25) mg/dL Estimated GFR 59 L (>60) mL/min BUN/Creatinine Ratio 20.3 (6-22) Glucose 102 (80-110) mg/dL Lactate (0.7-2.1) mmol/L Calcium 8.5 (8.4-10.2) mg/dL Total Bilirubin 1.4 H (0.2-1.3) mg/dL AST 46 (17-59) IU/L ALT 29 (<50) IU/L Alkaline Phosphatase 98 (38-126) U/L Total Creatine Kinase (55-170) U/L CK-MB (CK-2) CK-MB (CK-2) Rel Index Troponin I (0.01-0.034) ng/mL NT-Pro-B Natriuret Pep 6750 H (<125) pg/mL Total Protein 7.4 (6.3-8.2) g/dL Albumin 3.8 (3.5-5.0) g/dL Globulin 3.6 (1.7-4.1) g/dL Albumin/Globulin Ratio 1.1 (1.0-2.8) Lipase (23-300) U/L SARS-CoV-2 (PCR) Negative (Negative) 02/13/22 02/13/22 02/13/22 Range/Units 11:09 11:20 11:20 WBC (4.5-11.0) X10^3/uL RBC (4.5-5.9) X10^6/uL Hgb (13.5-17.5) g/dL Hct (41-53) % MCV (80-100) fL MCH (26-34) PG MCHC (30-36) % RDW (11.6-14.8) % Plt Count (150-400) X10^3/uL Neut % (Auto) (50-75) % Lymph % (Auto) (25-40) % Dodge % (Auto) (3-14) % Eos % (Auto) (2-4) % Baso % (Auto) (0-2) % Neut # (Auto) (3069-0204) /uL Lymph # (Auto) (5914-0748) /uL Dodge # (Auto) (0-900) /uL Eos # (Auto) (0-450) /uL Baso # (Auto) (0-100) /uL PT 27.8 H (10.1-12.7) SECONDS INR 2.4 H (0.9-1.3) ABG pH (7.35-7.45) ABG pCO2 (35-45) mmHg ABG pO2 (80-100) mmHg ABG HCO3 (22-26) mmol/L ABG Total CO2 (21-31) mmol/L ABG O2 Saturation (95-100) % ABG Base Excess (-2-2) mmol/L FiO2 Sodium (137-145) mmol/L Potassium (3.4-5.1) mmol/L Chloride (98-107) mmol/L Carbon Dioxide (22-32) mmol/L BUN (9-20) mg/dL Creatinine (0.66-1.25) mg/dL Estimated GFR (>60) mL/min BUN/Creatinine Ratio (6-22) Glucose (80-110) mg/dL Lactate 3.5 H (0.7-2.1) mmol/L Calcium (8.4-10.2) mg/dL Total Bilirubin (0.2-1.3) mg/dL AST (17-59) IU/L ALT (<50) IU/L Alkaline Phosphatase (38-126) U/L Total Creatine Kinase (55-170) U/L CK-MB (CK-2) CK-MB (CK-2) Rel Index Troponin I (0.01-0.034) ng/mL NT-Pro-B Natriuret Pep (<125) pg/mL Total Protein (6.3-8.2) g/dL Albumin (3.5-5.0) g/dL Globulin (1.7-4.1) g/dL Albumin/Globulin Ratio (1.0-2.8) Lipase 322 H (23-300) U/L SARS-CoV-2 (PCR) (Negative) 02/13/22 02/13/22 Range/Units 11:20 11:44 WBC (4.5-11.0) X10^3/uL RBC (4.5-5.9) X10^6/uL Hgb (13.5-17.5) g/dL Hct (41-53) % MCV (80-100) fL MCH (26-34) PG MCHC (30-36) % RDW (11.6-14.8) % Plt Count (150-400) X10^3/uL Neut % (Auto) (50-75) % Lymph % (Auto) (25-40) % Dodge % (Auto) (3-14) % Eos % (Auto) (2-4) % Baso % (Auto) (0-2) % Neut # (Auto) (6638-5816) /uL Lymph # (Auto) (3825-2732) /uL Dodge # (Auto) (0-900) /uL Eos # (Auto) (0-450) /uL Baso # (Auto) (0-100) /uL PT (10.1-12.7) SECONDS INR (0.9-1.3) ABG pH 7.43 (7.35-7.45) ABG pCO2 35.2 (35-45) mmHg ABG pO2 93 (80-100) mmHg ABG HCO3 24 (22-26) mmol/L ABG Total CO2 25 (21-31) mmol/L ABG O2 Saturation 98 (95-100) % ABG Base Excess -1.0 (-2-2) mmol/L FiO2 24 Sodium (137-145) mmol/L Potassium (3.4-5.1) mmol/L Chloride (98-107) mmol/L Carbon Dioxide (22-32) mmol/L BUN (9-20) mg/dL Creatinine (0.66-1.25) mg/dL Estimated GFR (>60) mL/min BUN/Creatinine Ratio (6-22) Glucose (80-110) mg/dL Lactate (0.7-2.1) mmol/L Calcium (8.4-10.2) mg/dL Total Bilirubin (0.2-1.3) mg/dL AST (17-59) IU/L ALT (<50) IU/L Alkaline Phosphatase (38-126) U/L Total Creatine Kinase 76 (55-170) U/L CK-MB (CK-2) TNP CK-MB (CK-2) Rel Index TNP Troponin I 0.056 H (0.01-0.034) ng/mL NT-Pro-B Natriuret Pep (<125) pg/mL Total Protein (6.3-8.2) g/dL Albumin (3.5-5.0) g/dL Globulin (1.7-4.1) g/dL Albumin/Globulin Ratio (1.0-2.8) Lipase (23-300) U/L SARS-CoV-2 (PCR) (Negative) Imaging Data Chest x-ray: Radiologist's Impression: [address] [address] XRay Report Signed Patient: Bunny Castillo MR#: [id number] : 1955 Acct:[id number] Age/Sex: 66 / M Date of Service: 02/13/22 Loc: ED Accession Number: [id number] ?? Procedure: XR chest 1V Ordering Provider: Martinez Chaudhary D.O. PROCEDURE:? XR CHEST 1V ? INDICATIONS:? shortness of breath ? TECHNIQUE:? One view of the chest was acquired.? ? COMPARISON:? [facility], , XR CHEST 2V, 12/22/2021, 18:54. ? FINDINGS:? ? Surgical changes and devices:? None.? ? Lungs and pleura:? Lung volumes are low.? There is elevation of the right hemidiaphragm and probable atelectasis at the right lung base. ? Mediastinum:? Mediastinal contours appear normal.? Heart size is markedly enlarged. ? Bones and chest wall:? No suspicious bony lesions.? Overlying soft tissues appear unremarkable.? ? IMPRESSION:? Marked cardiomegaly.? Elevated right hemidiaphragm and basilar atelectasis. ? ? Dictated by: Shima Del Rio M.D. on 02/13/2022 at 11:59 ? ? Approved by: Shima Del Rio M.D. on 02/13/2022 at 12:00?? CT scan - chest: Radiologist's Impression: Bunny Castillo??66??M??1955 ? Allergy/Adv: No Known Drug Allergies Close Chest CTA (Signed) Shima Del Rio - 02/13/22 Chest X-Ray (Signed) Shima Del Rio - 02/13/22 Echocardiogram Ultrasound (Signed) MissycristobalSanya casasmie - 12/24/21 Telemetry Strips 12/23/21 Chest X-Ray (Signed) RodneyShawnAmari - 12/22/21 Launch?[place] [address] CT Scan Report Signed Patient: Bunny Castillo MR#: [id number] : 1955 Acct:[id number] Age/Sex: 66 / M Date of Service: 02/13/22 Loc: ED Accession Number: [id number] ?? Procedure: CT angio chest PE protocol Ordering Provider: Martinez Chaudhary D.O. PROCEDURE:? CT ANGIO CHEST PE PROTOCOL ? INDICATIONS:? Tachycardia, shortness of breath ? TECHNIQUE:? After the administration of intravenous contrast, 2 mm thick sections acquired from the pulmonary apices to the posterior costophrenic angles.? 3-dimensional maximum intensity projection (MIP) coronal and sagittal reformats were then acquired through the thorax.? For radiation dose reduction, the following was used:? automated exposure con trol, adjustment of mA and/or kV according to patient size.? ? COMPARISON:? None. ? FINDINGS:? Image quality:? Excellent.? ? Pulmonary arteries:? Pulmonary arteries are normal in size, and demonstrate no intraluminal filling defects to suggest central pulmonary embolism.? ? Lungs and pleura:? Lungs are clear.? No pleural effusions or pneumothorax.? Central and peripheral airways are patent.? ? Mediastinum:? Heart size is markedly enlarged, without pericardial effusion.? No mediastinal or hilar adenopathy.? Thoracic aorta is normal in caliber and enhancement.? Esophagus is normal in caliber, without hiatal hernia.? ? Bones and chest wall:? No suspicious bony lesions.? Ribs and thoracic spine appear intact throughout.? Thyroid gland is unremarkable.? No axillary or supraclavicular adenopathy.? ? Abdomen:? Low-density perihepatic and perisplenic free fluid is noted.? Visualized upper abdominal solid organs appear normal in the early arterial phase of enhancement.? ? IMPRESSION:? ? 1. No acute pulmonary embolus. ? 2. Marked cardiomegaly.? ? 3. Hepatic splenic ascites which is incompletely characterized on this limited view of the abdomen.? ? Dictated by: Shima Del Rio M.D. on 02/13/2022 at 12:02 ? ? Approved by: Shima Del Rio M.D. on 02/13/2022 at 12:06?? ECG Data Attestation: I personally reviewed and interpreted this ECG as follows: Interpretation: Atrial fibrillation Ventricular rate 148 Right bundle branch block QRS 148 milliseconds MDM Narrative Medical decision making narrative: Patient AFib with RVR. Was given metoprolol with only a very short improvement of his heart rate. Does have a history of heart failure so we would like to stay away from calcium channel blockers. CT scan shows no signs of pulmonary embolism. I question whether not he has been taking his Eliquis for potentially most of his other medications given what he stated when he arrived. Started on Lasix. Discussed the case with Dr. Dodson who will admit for further evaluation and treatment. Discussed the need for admission with the patient expressed understanding. Admitting provider will start patient on digoxin. Discharge Plan Departure Patient Disposition: Admitted As Inpatient Clinical Impression: Atrial fibrillation with RVR, CHF (congestive heart failure), Chronic kidney disease Admit Date/Time: 02/13/22 12:36 Admit Provider: Rafael Dodson
--- NOTE | 2022-02-13 11:22 | DI.CT.S_ITS ---
PROCEDURE: CT ANGIO CHEST PE PROTOCOL INDICATIONS: Tachycardia, shortness of breath TECHNIQUE: After the administration of intravenous contrast, 2 mm thick sections acquired from the pulmonary apices to the posterior costophrenic angles. 3-dimensional maximum intensity projection (MIP) coronal and sagittal reformats were then acquired through the thorax. For radiation dose reduction, the following was used: automated exposure control, adjustment of mA and/or kV according to patient size. COMPARISON: None. FINDINGS: Image quality: Excellent. Pulmonary arteries: Pulmonary arteries are normal in size, and demonstrate no intraluminal filling defects to suggest central pulmonary embolism. Lungs and pleura: Lungs are clear. No pleural effusions or pneumothorax. Central and peripheral airways are patent. Mediastinum: Heart size is markedly enlarged, without pericardial effusion. No mediastinal or hilar adenopathy. Thoracic aorta is normal in caliber and enhancement. Esophagus is normal in caliber, without hiatal hernia. Bones and chest wall: No suspicious bony lesions. Ribs and thoracic spine appear intact throughout. Thyroid gland is unremarkable. No axillary or supraclavicular adenopathy. Abdomen: Low-density perihepatic and perisplenic free fluid is noted. Visualized upper abdominal solid organs appear normal in the early arterial phase of enhancement. IMPRESSION: 1. No acute pulmonary embolus. 2. Marked cardiomegaly. 3. Hepatic splenic ascites which is incompletely characterized on this limited view of the abdomen. Dictated by: Shima Del Rio M.D. on 02/13/2022 at 12:02 Approved by: Shima Del Rio M.D. on 02/13/2022 at 12:06
[2022-02-13 11:27] LABS: Add Manual Diff / Slide Review NO; Basophils Absolute Auto 100 /uL (0-100); Basophils Percent Auto 1.1 % (0-2); Eosinophils Absolute Auto 400 /uL (0-450); Eosinophils Percent Auto 2.9 % (2-4); Hematocrit 49.7 % (41-53); Hemoglobin 16.1 g/dL (13.5-17.5); Lymphocytes Absolute Auto 3300 /uL (1100-4500); Lymphocytes Percent Auto 27.3 % (25-40); Mean Corpuscular HGB Conc 32.3 % (30-36); Mean Corpuscular Hemoglobin 29.2 PG (26-34); Mean Corpuscular Volume 90.4 fL (80-100); Monocytes Absolute Auto 1100 /uL (0-900); Monocytes Percent Auto 8.8 % (3-14); Neutrophils Absolute Auto 7200 /uL (1500-7000); Neutrophils Percent Auto 59.9 % (50-75); Platelet Count 185 X10^3/uL (150-400); Red Cell Distribution Width 17.5 % (11.6-14.8)
[2022-02-13 11:28] LABS: Alanine Aminotransferase 29 IU/L (<50); Albumin 3.8 g/dL (3.5-5.0); Albumin Globulin Ratio 1.1 (1.0-2.8); Alkaline Phosphatase 98 U/L (38-126); Aspartate Aminotransferase 46 IU/L (17-59); BUN Creatinine Ratio 20.3 (6-22); Bilirubin Total 1.4 mg/dL (0.2-1.3); Blood Urea Nitrogen 27 mg/dL (9-20); Calcium 8.5 mg/dL (8.4-10.2); Carbon Dioxide 24 mmol/L (22-32); Chloride 102 mmol/L (98-107); Estimated Glomerular Filt Rate 59 mL/min (>60); Globulin 3.6 g/dL (1.7-4.1); Glucose 102 mg/dL (80-110); Potassium 4.9 mmol/L (3.4-5.1); Sodium 140 mmol/L (137-145); Total Protein 7.4 g/dL (6.3-8.2)
[2022-02-13 11:29] LABS: Lactate (Lactic Acid) 3.5 mmol/L (0.7-2.1)
[2022-02-13] MEDS: METOPROLOL IR 25 MG TABLET PO (11:29)
[2022-02-13] MEDS: FUROSEMIDE 100 MG/10 ML VIAL 60 MG IV ×2 (11:30→17:17)
[2022-02-13 11:33] LABS: HEMOLYSIS 61 (0-50)
[2022-02-13 11:37] LABS: NT-proBNP (BNP-Adult 18+) 6750 pg/mL (<125)
[2022-02-13 11:43] LABS: INR 2.4 (0.9-1.3); Prothrombin Time 27.8 SECONDS (10.1-12.7)
[2022-02-13 11:55] LABS: Creatine Kinase 76 U/L (55-170); Lipase 322 U/L (23-300)
[2022-02-13 12:08] LABS: HCO3 ABG 24 mmol/L (22-26); PCO2 ABG 35.2 mmHg (35-45); PO2 ABG 93 mmHg (80-100); TCO2 ABG 25 mmol/L (21-31); pH ABG 7.43 (7.35-7.45)
[2022-02-13 12:08] LABS: Troponin I 0.056 ng/mL (0.01-0.034)
[2022-02-13 12:09] LABS: Fractionated Inspired Oxygen 24; Oxygen Saturation ABG 98 % (95-100)
[2022-02-13 12:24] LABS: COVID19 -Nasal RAPID Negative (Negative)
[2022-02-13 13:14] LABS: Reflexed Lactate in 2 Hours Y
--- NOTE | 2022-02-13 13:39 | PC.NURSE ---
Transferred from ED via stretcher, walked to bed. A/O x4. SOB on exertion and rest. HR 110-150; A. fib. Awaiting further orders.
[2022-02-13 14:10] LABS: Lactate 2HR (Lactic Acid Rflx) 1.6 mmol/L (0.7-2.1); Magnesium 2.1 mg/dL (1.6-2.3)
--- NOTE | 2022-02-13 14:15 | PM.HP.1 ---
History of Present Illness History of Present Illness Date Patient Seen: 02/13/22 Time Patient Seen: 14:15 Chief complaint: Trouble breathing Narrative: Bunny Castillo is a 66 y.o. male with a history of methamphetamine use (stated last used in August 2021), methamphetamine mediated ischemic cardiomyopathy, heart failure with a reduced ejection fraction of 15%, paroxysmal atrial fibrillation with prior cardioversion at [facility] who presented to the ED with worsening shortness of breath. He has been without his diuretic medication for two weeks he states. He has not followed up with an outpatient provider since his admission here for similar presentation 12/23/21 until 12/26/21. He states he was dealing with homelessness but now is living in a hotel. He denies substance use recently, but used to use methamphetamine regularly as well as marijuana. In the emergency room, he was tachycardic and in afib with RVR. BP was borderline after 25 mg of IR metoprolol was given. He was admitted for further management to the hospitalist service. INR is noted to be 2.4, he does endorse continued apixaban use. Creatinine was 1.33, similar to prior lab values. Tbili was mildly elevated. Trop was 0.056 and proBNP 6750. COVID testing was negative. CXR was fairly unremarkable with bibasilar atelectasis. CTA was negative for PE, lungs also appeared fairly clear. Patient History Medical History Acute on chronic HFrEF (heart failure with reduced ejection fraction) Anticoagulant prescribed at discharge Cardiomyopathy Congestive heart failure Hypertension Surgical History No significant past surgical history Family & Social History Family History Father Congestive heart failure Cancer Mother No pertinent past medical history Social History: household members significant other,children Safety & Behavioral: Feels Safe in Current Yes Environment Been Physically Hurt or No Threatened By a Person Tobacco & Substance use: Tobacco type cannabis/marijuana Smoking Status Current some day smoker alcohol intake never alcohol intake frequency holiday/special occasion Substance Use Type marijuana,methamphetamine Meds Home Medications and Allergies Home Medications Medication Instructions Recorded Confirmed Type apixaban 5 mg tablet (Eliquis) 5 mg PO BID 12/23/21 12/23/21 History lisinopril 2.5 mg tablet 2.5 mg PO DAILY 12/23/21 12/23/21 History acetaminophen 325 mg tablet 650 mg PO Q6HR PRN Fever/Mild Pain 12/26/21 Rx (1-3) #100 tabs apixaban 5 mg tablet (Eliquis) 5 mg PO BID #60 tabs 12/26/21 02/13/22 Rx bumetanide 1 mg tablet 1 mg PO DAILY #30 tabs 12/26/21 Rx furosemide 40 mg tablet 80 mg PO 0800,1200,1700 #180 tabs 12/26/21 02/13/22 Rx lisinopril 5 mg tablet 2.5 mg PO DAILY #30 tabs 12/26/21 Rx metoprolol succinate 25 mg 25 mg PO BID #60 tabs 12/26/21 02/13/22 Rx tablet,extended release 24 hr spironolactone 25 mg tablet 25 mg PO DAILY #30 tabs 12/26/21 Rx Allergies Allergy/AdvReac Type Severity Reaction Status Date / Time No Known Drug Allergies Allergy Verified 02/13/22 11:11 Review of Systems Review of Systems Narrative: All other systems reviewed with the patient and are negative unless otherwise stated. Exam Vital Signs (past 8 hours): - 02/13/22 11:05 02/13/22 11:05 02/13/22 11:06 Temperature 97.8 F Pulse Rate 149 H 40 L 41 L Respiratory Rate 35 H Blood Pressure 152/70 H Pulse Oximetry 95 Oxygen Delivery Method Room Air Oxygen Flow Rate 02/13/22 11:06 02/13/22 11:30 02/13/22 11:37 Temperature Pulse Rate 149 H 149 H Respiratory Rate 26 H 15 Blood Pressure 152/70 H Pulse Oximetry 99 98 Oxygen Delivery Method Nasal Cannula Nasal Cannula Oxygen Flow Rate 1 1 02/13/22 11:37 02/13/22 11:45 02/13/22 11:45 Temperature Pulse Rate 147 H Respiratory Rate 33 H Blood Pressure 89/56 L 99/56 L Pulse Oximetry 98 Oxygen Delivery Method Nasal Cannula Oxygen Flow Rate 1 02/13/22 12:00 02/13/22 12:01 02/13/22 12:01 Temperature Pulse Rate 145 H 144 H Respiratory Rate 24 17 Blood Pressure 116/53 L Pulse Oximetry 99 99 Oxygen Delivery Method Nasal Cannula Nasal Cannula Oxygen Flow Rate 1 1 02/13/22 12:15 02/13/22 12:15 02/13/22 12:30 Temperature Pulse Rate 138 H 146 H Respiratory Rate 31 H 23 Blood Pressure 111/50 L Pulse Oximetry 93 94 Oxygen Delivery Method Nasal Cannula Oxygen Flow Rate 2 02/13/22 12:31 02/13/22 12:31 02/13/22 13:00 Temperature Pulse Rate 143 H 142 H Respiratory Rate 25 H 28 H Blood Pressure 112/65 Pulse Oximetry 96 97 Oxygen Delivery Method Nasal Cannula Oxygen Flow Rate 2 02/13/22 13:11 02/13/22 13:20 02/13/22 14:04 Temperature 98.2 F Pulse Rate 113 H Respiratory Rate 14 Blood Pressure 130/77 Pulse Oximetry 95 96 Oxygen Delivery Method Room Air Oxygen Flow Rate 0 Oxygen Delivery Method Room Air Oxygen Flow Rate 0 Narrative Exam Narrative: General:? Patient is well developed and well nourished, in no distress at this time. HEENT:? Normocephalic, atraumatic, extraocular muscles intact, oral pharynx is clear and mucous membranes are moist. Neck: supple and symmetric, trachea is midline, no cervical adenopathy. Negative for JVD Chest:? Normal AP diameter and contour without kyphoscoliosis, no tachypnea, equal chest rise bilaterally. Lungs:?bibasilar rales, no wheezing, poor air movement. Cardio: tachycardic, irregularly irregular w/ no m/r/g. Abdomen: S NT ND. Musculoskeletal:? Muscle strength and tone are equal within normal limits, no deformity. Extremities: 2+ LE edema, no joint effusions Skin:? Pale,? Warm to touch,dry and intact. Lower posterior back with fungal rash Neuro:? Alert and orientated x3,? sensation to touch intact in all extremities, no gross deficits noted of cranial nerves. Psych:? Patient has a well-kept appearance, appropriate affect, mental status attitude thought context and judgment are appropriate for age. Objective ECG Impression: Atrial fibrillation with rapid ventricular response with premature ventricular or aberrantly conducted complexes Right bundle branch block Septal infarct, probably old As interpreted by me. Labs Result Diagrams: 02/13/22 11:09 02/13/22 11:09 Labs: Laboratory Results - last 24 hr 10/13/22 10/13/22 10/13/22 10:55 11:09 11:09 WBC 12.0 H RBC 5.50 Hgb 16.1 Hct 49.7 MCV 90.4 MCH 29.2 MCHC 32.3 RDW 17.5 H Plt Count 185 Neut % (Auto) 59.9 Lymph % (Auto) 27.3 [place] % (Auto) 8.8 Eos % (Auto) 2.9 Baso % (Auto) 1.1 Neut # (Auto) 7200 H Lymph # (Auto) 3300 [place] # (Auto) 1100 H Eos # (Auto) 400 Baso # (Auto) 100 PT INR ABG pH ABG pCO2 ABG pO2 ABG HCO3 ABG Total CO2 ABG O2 Saturation ABG Base Excess FiO2 Sodium 140 Potassium 4.9 Chloride 102 Carbon Dioxide 24 BUN 27 H Creatinine 1.33 H Estimated GFR 59 L BUN/Creatinine Ratio 20.3 Glucose 102 Lactate Calcium 8.5 Magnesium Total Bilirubin 1.4 H AST 46 ALT 29 Alkaline Phosphatase 98 Total Creatine Kinase CK-MB (CK-2) CK-MB (CK-2) Rel Index Troponin I NT-Pro-B Natriuret Pep 6750 H Total Protein 7.4 Albumin 3.8 Globulin 3.6 Albumin/Globulin Ratio 1.1 Lipase SARS-CoV-2 (PCR) Negative 02/13/22 02/13/22 02/13/22 11:09 11:20 11:20 WBC RBC Hgb Hct MCV MCH MCHC RDW Plt Count Neut % (Auto) Lymph % (Auto) [place] % (Auto) Eos % (Auto) Baso % (Auto) Neut # (Auto) Lymph # (Auto) [place] # (Auto) Eos # (Auto) Baso # (Auto) PT 27.8 H INR 2.4 H ABG pH ABG pCO2 ABG pO2 ABG HCO3 ABG Total CO2 ABG O2 Saturation ABG Base Excess FiO2 Sodium Potassium Chloride Carbon Dioxide BUN Creatinine Estimated GFR BUN/Creatinine Ratio Glucose Lactate 3.5 H Calcium Magnesium Total Bilirubin AST ALT Alkaline Phosphatase Total Creatine Kinase CK-MB (CK-2) CK-MB (CK-2) Rel Index Troponin I NT-Pro-B Natriuret Pep Total Protein Albumin Globulin Albumin/Globulin Ratio Lipase 322 H SARS-CoV-2 (PCR) 02/13/22 02/13/22 02/13/22 11:20 11:44 13:40 WBC RBC Hgb Hct MCV MCH MCHC RDW Plt Count Neut % (Auto) Lymph % (Auto) [place] % (Auto) Eos % (Auto) Baso % (Auto) Neut # (Auto) Lymph # (Auto) [place] # (Auto) Eos # (Auto) Baso # (Auto) PT INR ABG pH 7.43 ABG pCO2 35.2 ABG pO2 93 ABG HCO3 24 ABG Total CO2 25 ABG O2 Saturation 98 ABG Base Excess -1.0 FiO2 24 Sodium Potassium Chloride Carbon Dioxide BUN Creatinine Estimated GFR BUN/Creatinine Ratio Glucose Lactate Calcium Magnesium 2.1 Total Bilirubin AST ALT Alkaline Phosphatase Total Creatine Kinase 76 CK-MB (CK-2) TNP CK-MB (CK-2) Rel Index TNP Troponin I 0.056 H NT-Pro-B Natriuret Pep Total Protein Albumin Globulin Albumin/Globulin Ratio Lipase SARS-CoV-2 (PCR) 02/13/22 13:40 WBC RBC Hgb Hct MCV MCH MCHC RDW Plt Count Neut % (Auto) Lymph % (Auto) [place] % (Auto) Eos % (Auto) Baso % (Auto) Neut # (Auto) Lymph # (Auto) [place] # (Auto) Eos # (Auto) Baso # (Auto) PT INR ABG pH ABG pCO2 ABG pO2 ABG HCO3 ABG Total CO2 ABG O2 Saturation ABG Base Excess FiO2 Sodium Potassium Chloride Carbon Dioxide BUN Creatinine Estimated GFR BUN/Creatinine Ratio Glucose Lactate 1.6 Calcium Magnesium Total Bilirubin AST ALT Alkaline Phosphatase Total Creatine Kinase CK-MB (CK-2) CK-MB (CK-2) Rel Index Troponin I NT-Pro-B Natriuret Pep Total Protein Albumin Globulin Albumin/Globulin Ratio Lipase SARS-CoV-2 (PCR) Assessment & Plan Assessment & Plan narrative: 1. Acute on chronic systolic heart failure - continue furosemide IV BID - known EF of 15%, TTE will not change acute management at this time. ProBNP 6750. - beta kimberlee started as noted below, previous home dosing - continue home john inhibitor as BP allows 2. paroxysmal atrial fibrillation with RVR - restart home metoprolol. - continue apixban 3. chronic anticoagulation 4. Myocardial injury - continue to trend troponins until downtrending. suspect in the setting of acute heart failure and afib with RVR, but cannot rule out ACS. EKG unchanged from previous and with a RBBB. 5. Methampetamine use - patient denies recent use of methamphetamin and all substances. Code: Full, surrogate is patient's mother Dispo: admitted under observation status DVT: on apixban I have utilized all available immediate resources to obtain, update, or review the patient's current medications. COVID-19 COVID-19 status: Negative Time Spent With Patient Critical Care time: I spent a total of [] minutes of critical care time on this patient's care today; this time is exclusive of procedural time.
--- NOTE | 2022-02-13 14:21 | PC.NURSE ---
6 pill bottles sent to pharmacy.
[2022-02-13] MEDS: ONDANSETRON 4 MG/2 ML INJ IV (17:22)
[2022-02-13 22:09] LABS: Alanine Aminotransferase 28 IU/L (<50); Albumin 3.6 g/dL (3.5-5.0); Albumin Globulin Ratio 1.1 (1.0-2.8); Alkaline Phosphatase 86 U/L (38-126); Aspartate Aminotransferase 33 IU/L (17-59); BUN Creatinine Ratio 18.5 (6-22); Bilirubin Total 1.5 mg/dL (0.2-1.3); Blood Urea Nitrogen 30 mg/dL (9-20); Calcium 8.2 mg/dL (8.4-10.2); Carbon Dioxide 24 mmol/L (22-32); Chloride 104 mmol/L (98-107); Estimated Glomerular Filt Rate 46 mL/min (>60); Globulin 3.3 g/dL (1.7-4.1); Glucose 86 mg/dL (80-110); HEMOLYSIS 18 (0-50); Magnesium 2.2 mg/dL (1.6-2.3); Potassium 4.7 mmol/L (3.4-5.1); Sodium 139 mmol/L (137-145); Total Protein 6.9 g/dL (6.3-8.2)
[2022-02-13] MEDS: AMIODARONE 150 MG/100 ML PIGGYBACK 600 MG IV (22:17)
[2022-02-13] MEDS: APIXABAN 5 MG TABLET PO (22:17)
[2022-02-13] MEDS: SODIUM CHLORIDE 0.9% FLUSH 10 ML IV (22:18)
[2022-02-13 22:21] LABS: Troponin I 0.049 ng/mL (0.01-0.034)
[2022-02-13] MEDS: AMIODARONE 360 MG/200 ML PIGGYBACK 33.3 MG IV (22:27)
[2022-02-13] MEDS: ACETAMINOPHEN 325 MG TABLET 975 MG PO (23:25)
[2022-02-13] MEDS: ALPRAZolam 0.25 MG TABLET PO (23:25)
--- NOTE | 2022-02-13 23:39 | DI.RAD.S_ITS ---
PROCEDURE: XR CHEST 1V INDICATIONS: SOB worsening/cp TECHNIQUE: One view of the chest was acquired. COMPARISON: [facility], CR, XR CHEST 1V, 02/13/2022, 11:30. FINDINGS: Surgical changes and devices: None. Lungs and pleura: Elevation the right hemidiaphragm is redemonstrated. There are right basilar opacities consistent with atelectasis or consolidation. No pleural effusions or pneumothorax. Mediastinum: Mediastinal contours are unchanged. Heart size is enlarged. Bones and chest wall: No suspicious bony lesions. Overlying soft tissues appear unremarkable. IMPRESSION: 1. Right infrahilar opacities consistent with atelectasis or consolidation Dictated by: Case Ferreira M.D. on 02/14/2022 at 0:27 Approved by: Case Ferreira M.D. on 02/14/2022 at 0:28
[2022-02-13] MEDS: FUROSEMIDE 20 MG/2 ML VIAL IV (23:53)
[2022-02-14] VITALS (139 sets, daily range): BP systolic 79–139; BP diastolic 45–111; PULSE 57–146; RESP 0–42; TEMP 27.9–37.1; O2SAT 82–100
[2022-02-14] MEDS: dexmedeTOMIDine in 0.9 % NaCL 400 MCG/100 ML PLAST..BAG 5.443 MCG IV (00:49)
[2022-02-14] MEDS: PHENYLEPHRINE 20,000 MCG in DEXTROSE 5% IN WATER 250 ML 37.5 MCG IV (01:00)
--- NOTE | 2022-02-14 01:43 | PM.CN.EICU ---
History of Present Illness Consult details IF CAMERA ACTIVATED, patient seen via real-time interactive audiovisual communication: Camera activated Date Patient Seen: 02/14/22 Chief complaint: Trouble breathing Consent obtained for tele-clerk operator care: Yes Patient Location: ICU Provider location (State): [place] Other participants/roles: RN Narrative: 66 y.o. upgraded from stepdown status to ICU for respiratory distress and rapid AF in 130s. PMHx notable for THC/methamphetamine abuse, HFrEF with LVEF of 15%, homelessness and HTN. He has been noncomplaint with his meds for several weeks. Initial troponin was 0.056 w/ BNP of 6750; creatinine was 1.33. Pulmonary CTA was (-) for pneumonia/PE. He was admitted to stepdown and started on diuretics. During tachycardia, he was agitated. Spoke to MARYANA Hector; recommended Lasix 20 mg HR, low dose Xanax and amiodarone. HR mproved but patient demanded that amiodarone be discontinued due to pain pulses; upon first camera activation, patient tripoding ->NIPPV ordered. Precedex and phenylephrine infusions started. Patient now sleeping comfortably on second camera activation NIPPV 14/8 100% FiO2 w/ RR 14. Phenylephrine is at 50 mcg/min and Precedex is at 0.1 mcg/kg/hr. Patient changed his code status to DNR. [facility] Medical History Acute on chronic HFrEF (heart failure with reduced ejection fraction) Anticoagulant prescribed at discharge Cardiomyopathy Congestive heart failure Hypertension Surgical History No significant past surgical history Family History Father Congestive heart failure Cancer Mother No pertinent past medical history Social History household members: significant other and children Smoking Status: Current some day smoker alcohol intake: never Current Medications Current Medications Medications: Home Medications apixaban 5 mg tablet (Eliquis) 5 mg PO BID 12/23/21 [History Confirmed 12/23/21] lisinopril 2.5 mg tablet 2.5 mg PO DAILY 12/23/21 [History Confirmed 12/23/21] acetaminophen 325 mg tablet 650 mg PO Q6HR PRN Fever/Mild Pain (1-3) #100 tabs 12/26/21 [Rx] apixaban 5 mg tablet (Eliquis) 5 mg PO BID #60 tabs 12/26/21 [Rx Confirmed 02/13/22] bumetanide 1 mg tablet 1 mg PO DAILY #30 tabs 12/26/21 [Rx] furosemide 40 mg tablet 80 mg PO 0800,1200,1700 #180 tabs 12/26/21 [Rx Confirmed 02/13/22] lisinopril 5 mg tablet 2.5 mg PO DAILY #30 tabs 12/26/21 [Rx] metoprolol succinate 25 mg tablet,extended release 24 hr 25 mg PO BID #60 tabs 12/26/21 [Rx Confirmed 02/13/22] spironolactone 25 mg tablet 25 mg PO DAILY #30 tabs 12/26/21 [Rx] Visit Medications (administered) Generic Name Dose Route Start Last Admin Trade Name Freq PRN Reason Stop Dose Admin Acetaminophen 975 mg 02/13/22 13:11 02/13/22 23:25 Acetaminophen 325 Mg Tablet PO 975 mg Q8H PRN Administration Pain, Mild (1-3) Apixaban 5 mg 02/13/22 21:00 02/13/22 22:17 Apixaban 5 Mg Tablet PO 5 mg BID MARLEEN Administration Furosemide 60 mg 02/13/22 17:00 02/13/22 17:17 Furosemide 100 Mg/10 Ml Vial IV 60 mg 0800,1700 MARLEEN Administration Amiodarone HCl/Dextrose 360 mg in 200 mls @ 33.333 mls/hr 02/13/22 21:38 02/13/22 23:06 Nexterone IV 02/14/22 03:37 0 ml/hr NOW ONE 0 mls/hr Titration Protocol Phenylephrine HCl 20,000 mcg/ 250 mls @ 37.5 mls/hr 02/13/22 21:43 02/14/22 01:00 Dextrose IV 50 mcg/min TITRATE MARLEEN 37.5 mls/hr Administration Protocol 50 MCG/MIN dexmedeTOMIDine in 0.9 % NaCL 400 mcg in 100 mls @ 5.443 mls/hr 02/14/22 00:15 02/14/22 00:49 Precedex IV 0.2 mcg/kg/hr TITRATE MARLEEN 5.443 mls/hr Administration Protocol 0.2 MCG/KG/HR Metoprolol Succinate 25 mg 02/13/22 21:00 02/13/22 22:17 Metoprolol Er 25 Mg Tablet PO Not Given BID MARLEEN Ondansetron HCl 4 mg 02/13/22 13:11 02/13/22 17:22 Ondansetron 4 Mg/2 Ml Inj IV 4 mg Q8HR PRN Administration Nausea And Vomiting Sodium Chloride 10 ml 02/13/22 21:00 02/13/22 22:18 Sodium Chloride 0.9% Flush IV 10 ml BID MARLEEN Administration Exam Vital Signs (past 8 hours): - 02/13/22 18:15 02/13/22 21:39 02/13/22 22:17 Temperature 97.6 F 98.3 F Pulse Rate 53 L 63 130 H Respiratory Rate 24 24 Blood Pressure 95/62 103/78 88/60 L Pulse Oximetry 99 100 Oxygen Flow Rate 0 6 Fraction of Inspired Oxygen 02/14/22 00:20 02/14/22 01:34 02/14/22 00:07 Temperature Pulse Rate 107 H 120 H Respiratory Rate 20 41 H Blood Pressure 125/77 88/72 L Pulse Oximetry 98 93 Oxygen Flow Rate 100 Fraction of Inspired Oxygen 1.00 02/14/22 00:26 02/14/22 00:26 02/14/22 00:30 Temperature Pulse Rate 114 H 104 H Respiratory Rate 10 L 20 Blood Pressure 125/77 Pulse Oximetry 100 100 Oxygen Flow Rate Fraction of Inspired Oxygen 02/14/22 00:51 02/14/22 00:51 02/14/22 01:00 Temperature Pulse Rate 111 H 116 H Respiratory Rate 20 21 Blood Pressure 79/58 L Pulse Oximetry 99 99 Oxygen Flow Rate Fraction of Inspired Oxygen 02/14/22 01:01 02/14/22 01:01 02/14/22 01:15 Temperature Pulse Rate 110 H 104 H Respiratory Rate 22 21 Blood Pressure 84/48 L Pulse Oximetry 99 96 Oxygen Flow Rate Fraction of Inspired Oxygen 02/14/22 01:15 02/14/22 01:30 02/14/22 01:30 Temperature Pulse Rate 107 H Respiratory Rate 20 Blood Pressure 89/69 L 88/72 L Pulse Oximetry 98 Oxygen Flow Rate Fraction of Inspired Oxygen Fraction of Inspired Oxygen 1.00 Oxygen Delivery Method Room Air Oxygen Flow Rate 100 Const General: comfortable Nutritional Appearance: obese Cardio Rate: regular rate Rhythm: other (AFib) Objective Labs Result Diagrams: 02/13/22 11:09 02/13/22 21:50 Labs: Laboratory Results - last 24 hr 02/13/22 02/13/22 02/13/22 10:55 11:09 11:09 WBC 12.0 H RBC 5.50 Hgb 16.1 Hct 49.7 MCV 90.4 MCH 29.2 MCHC 32.3 RDW 17.5 H Plt Count 185 Neut % (Auto) 59.9 Lymph % (Auto) 27.3 [place] % (Auto) 8.8 Eos % (Auto) 2.9 Baso % (Auto) 1.1 Neut # (Auto) 7200 H Lymph # (Auto) 3300 [place] # (Auto) 1100 H Eos # (Auto) 400 Baso # (Auto) 100 PT INR ABG pH ABG pCO2 ABG pO2 ABG HCO3 ABG Total CO2 ABG O2 Saturation ABG Base Excess FiO2 Sodium 140 Potassium 4.9 Chloride 102 Carbon Dioxide 24 BUN 27 H Creatinine 1.33 H Estimated GFR 59 L BUN/Creatinine Ratio 20.3 Glucose 102 Lactate Calcium 8.5 Magnesium Total Bilirubin 1.4 H AST 46 ALT 29 Alkaline Phosphatase 98 Total Creatine Kinase CK-MB (CK-2) CK-MB (CK-2) Rel Index Troponin I NT-Pro-B Natriuret Pep 6750 H Total Protein 7.4 Albumin 3.8 Globulin 3.6 Albumin/Globulin Ratio 1.1 Lipase Nasal Screen MRSA (PCR) SARS-CoV-2 (PCR) Negative 02/13/22 02/13/22 02/13/22 11:09 11:20 11:20 WBC RBC Hgb Hct MCV MCH MCHC RDW Plt Count Neut % (Auto) Lymph % (Auto) [place] % (Auto) Eos % (Auto) Baso % (Auto) Neut # (Auto) Lymph # (Auto) [place] # (Auto) Eos # (Auto) Baso # (Auto) PT 27.8 H INR 2.4 H ABG pH ABG pCO2 ABG pO2 ABG HCO3 ABG Total CO2 ABG O2 Saturation ABG Base Excess FiO2 Sodium Potassium Chloride Carbon Dioxide BUN Creatinine Estimated GFR BUN/Creatinine Ratio Glucose Lactate 3.5 H Calcium Magnesium Total Bilirubin AST ALT Alkaline Phosphatase Total Creatine Kinase CK-MB (CK-2) CK-MB (CK-2) Rel Index Troponin I NT-Pro-B Natriuret Pep Total Protein Albumin Globulin Albumin/Globulin Ratio Lipase 322 H Nasal Screen MRSA (PCR) SARS-CoV-2 (PCR) 02/13/22 02/13/22 02/13/22 11:20 11:44 13:30 WBC RBC Hgb Hct MCV MCH MCHC RDW Plt Count Neut % (Auto) Lymph % (Auto) [place] % (Auto) Eos % (Auto) Baso % (Auto) Neut # (Auto) Lymph # (Auto) [place] # (Auto) Eos # (Auto) Baso # (Auto) PT INR ABG pH 7.43 ABG pCO2 35.2 ABG pO2 93 ABG HCO3 24 ABG Total CO2 25 ABG O2 Saturation 98 ABG Base Excess -1.0 FiO2 24 Sodium Potassium Chloride Carbon Dioxide BUN Creatinine Estimated GFR BUN/Creatinine Ratio Glucose Lactate Calcium Magnesium Total Bilirubin AST ALT Alkaline Phosphatase Total Creatine Kinase 76 CK-MB (CK-2) TNP CK-MB (CK-2) Rel Index TNP Troponin I 0.056 H NT-Pro-B Natriuret Pep Total Protein Albumin Globulin Albumin/Globulin Ratio Lipase Nasal Screen MRSA (PCR) Negative for mrsa SARS-CoV-2 (PCR) 02/13/22 02/13/22 02/13/22 13:40 13:40 21:50 WBC RBC Hgb Hct MCV MCH MCHC RDW Plt Count Neut % (Auto) Lymph % (Auto) [place] % (Auto) Eos % (Auto) Baso % (Auto) Neut # (Auto) Lymph # (Auto) [place] # (Auto) Eos # (Auto) Baso # (Auto) PT INR ABG pH ABG pCO2 ABG pO2 ABG HCO3 ABG Total CO2 ABG O2 Saturation ABG Base Excess FiO2 Sodium 139 Potassium 4.7 Chloride 104 Carbon Dioxide 24 BUN 30 H Creatinine 1.62 H Estimated GFR 46 L BUN/Creatinine Ratio 18.5 Glucose 86 Lactate 1.6 Calcium 8.2 L Magnesium 2.1 2.2 Total Bilirubin 1.5 H AST 33 ALT 28 Alkaline Phosphatase 86 Total Creatine Kinase CK-MB (CK-2) CK-MB (CK-2) Rel Index Troponin I NT-Pro-B Natriuret Pep Total Protein 6.9 Albumin 3.6 Globulin 3.3 Albumin/Globulin Ratio 1.1 Lipase Nasal Screen MRSA (PCR) SARS-CoV-2 (PCR) 02/13/22 21:50 WBC RBC Hgb Hct MCV MCH MCHC RDW Plt Count Neut % (Auto) Lymph % (Auto) [place] % (Auto) Eos % (Auto) Baso % (Auto) Neut # (Auto) Lymph # (Auto) [place] # (Auto) Eos # (Auto) Baso # (Auto) PT INR ABG pH ABG pCO2 ABG pO2 ABG HCO3 ABG Total CO2 ABG O2 Saturation ABG Base Excess FiO2 Sodium Potassium Chloride Carbon Dioxide BUN Creatinine Estimated GFR BUN/Creatinine Ratio Glucose Lactate Calcium Magnesium Total Bilirubin AST ALT Alkaline Phosphatase Total Creatine Kinase CK-MB (CK-2) CK-MB (CK-2) Rel Index Troponin I 0.049 H NT-Pro-B Natriuret Pep Total Protein Albumin Globulin Albumin/Globulin Ratio Lipase Nasal Screen MRSA (PCR) SARS-CoV-2 (PCR) Assessment & Plan Assessment and plan (1) Atrial fibrillation with RVR: Status: Acute Plan: -Continue metoprolol -Continue apixaban; dose may need to be adjusted if eGFR continues to fall (2) Acute on chronic HFrEF (heart failure with reduced ejection fraction): Status: Acute Plan: -Continue NIPPV for preload/afterload reduction -Gentle diuresis (3) Elevated troponin: Status: Acute Plan: -Due to diagnosis # 2; trend (4) Acute renal failure superimposed on chronic kidney disease: Status: Acute Plan: -Due to diagnosis #2; may be entering a cardiorenal syndrome; if this is the case, may requires further goals of care discussion +/- tx to renal replacement capable ctr Time Spent With Patient Critical Care time: I spent a total of 35 minutes of critical care time on this patient's care today; this time is exclusive of procedural time.
--- NOTE | 2022-02-14 04:03 | PC.NURSE ---
Addendum entered by Renetta Monsalve R.N. 02/14/22 07:26: Patient tolerated Bi-pap until 0640, then replaced with 2L NC. Phenylephrine continues at 60mcg/min, Precedex increased to 0.2mcg/kg/hr at 0700. 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 A-fib RVR, BBB, rate 100-115 on telemetry. Patient gradually started to have increased shortness of breath with anxiety, assist back to bed, at 2115, he went into VT rate 150 for 1 minute, BP 92/70(78), he then started having apneic episodes intermittently with dyspnea, placed on 2-4L NC, 88-100%. 2214 Amiodarone started, 150mg bolus infusion followed by 33.3ml/hr as ordered, HR was sustaining 120s with multi-focal PVCs, labs drawn. Patient still continued to be restless with anxiety and dyspnea, he requested the amiodarone be stopped, says he thinks the shortness of breath is caused from whatever that is you are giving me also requesting something to just knock me out, discussed with [facility], gtt stopped, 1x dose Xanax given along with Tylenol. [id number] contacted from room, [facility] had already notified Dr Lopez about patient, IV Lasix and Bi-pap ordered. 0130- Phenylephrine started as ordered to keep MAP>65, Precedex also started to anxiety and to assist patient to tolerate Bi-pap, which it did. See all vital trends and Emar.
[2022-02-14 06:31] LABS: Add Manual Diff / Slide Review NO; Basophils Absolute Auto 100 /uL (0-100); Basophils Percent Auto 0.7 % (0-2); Eosinophils Absolute Auto 0 /uL (0-450); Eosinophils Percent Auto 0.3 % (2-4); Hematocrit 48.7 % (41-53); Hemoglobin 15.9 g/dL (13.5-17.5); Lymphocytes Absolute Auto 2400 /uL (1100-4500); Lymphocytes Percent Auto 24.7 % (25-40); Mean Corpuscular HGB Conc 32.7 % (30-36); Mean Corpuscular Hemoglobin 29.4 PG (26-34); Mean Corpuscular Volume 89.9 fL (80-100); Monocytes Absolute Auto 1000 /uL (0-900); Monocytes Percent Auto 10.8 % (3-14); Neutrophils Absolute Auto 6200 /uL (1500-7000); Neutrophils Percent Auto 63.5 % (50-75); Platelet Count 177 X10^3/uL (150-400); Red Blood Cell Count 5.41 X10^6/uL (4.5-5.9); Red Cell Distribution Width 17.1 % (11.6-14.8); White Blood Cell Count 9.7 X10^3/uL (4.5-11.0)
[2022-02-14 06:35] LABS: Alanine Aminotransferase 52 IU/L (<50); Albumin 3.4 g/dL (3.5-5.0); Albumin Globulin Ratio 1.1 (1.0-2.8); Alkaline Phosphatase 96 U/L (38-126); Aspartate Aminotransferase 84 IU/L (17-59); Bilirubin Total 1.3 mg/dL (0.2-1.3); Blood Urea Nitrogen 33 mg/dL (9-20); Calcium 8.4 mg/dL (8.4-10.2); Carbon Dioxide 26 mmol/L (22-32); Chloride 102 mmol/L (98-107); Estimated Glomerular Filt Rate 42 mL/min (>60); Globulin 3.2 g/dL (1.7-4.1); Glucose 85 mg/dL (80-110); HEMOLYSIS 20 (0-50); Magnesium 2.3 mg/dL (1.6-2.3); Potassium 4.9 mmol/L (3.4-5.1); Sodium 139 mmol/L (137-145); Total Protein 6.6 g/dL (6.3-8.2)
[2022-02-14] MEDS: PHENYLEPHRINE 20,000 MCG in DEXTROSE 5% IN WATER 250 ML 45 MCG IV (06:35)
--- NOTE | 2022-02-14 09:29 | DI.RAD.S_ITS ---
PROCEDURE: XR CHEST 1V INDICATIONS: CVC Placement TECHNIQUE: One view of the chest was acquired. COMPARISON: [facility], CR, XR CHEST 1V, 02/13/2022, 23:43. FINDINGS: Surgical changes and devices: Right internal jugular vein central venous catheter is present, tip of which is in the mid SVC. Lungs and pleura: Lung volumes are low. There is mild bilateral perihilar opacity. No pleural effusions or pneumothorax. Mediastinum: Mediastinal contours appear normal. Heart size is normal. Bones and chest wall: No suspicious bony lesions. Overlying soft tissues appear unremarkable. IMPRESSION: Mild perihilar atelectasis versus pneumonia Dictated by: Cari Briggs M.D. on 02/14/2022 at 9:56 Approved by: Cari Briggs M.D. on 02/14/2022 at 9:56
[2022-02-14] MEDS: FUROSEMIDE 100 MG/10 ML VIAL 60 MG IV ×2 (10:37→17:02)
[2022-02-14] MEDS: PANTOPRAZOLE 40 MG VIAL IV (10:38)
[2022-02-14] MEDS: SODIUM CHLORIDE 0.9% FLUSH 10 ML IV ×2 (10:38→22:55)
[2022-02-14] MEDS: MILRINONE LACTATE IV ×2 (10:39→21:43)
[2022-02-14] MEDS: D5W IV ×2 (10:39→21:43)
[2022-02-14] MEDS: PIGGYBACK IV ×2 (10:39→21:43)
--- NOTE | 2022-02-14 10:50 | PM.ICURNDS ---
- :: This patient was seen via real time interactive two-way audiovisual telecommunication. Patient remains on phenylephrine, to be started on milrinone and goal to wean off phenylephrine. He has been having runs of vtach, cannot tolerate amiodaorne, and given his current LFT, would avoid if possible. if there contuued runs of VT, may need lidocaine ( only if pressor load is releived and is essentially oput of cardiogenic shock) would trasnfer given need for cardiology eval, but would also consider GOC discussions and hospice eval given his en stage HF
--- NOTE | 2022-02-14 12:02 | PM.CN ---
History of Present Illness Consult details Date Patient Seen: 02/14/22 Chief complaint: Trouble breathing Narrative: Bunny Castillo is a 66 y/o M with a PMH of HFrEF, HTN, PAF, CKD, methamphetamine use who presented to ED 02/13/22 with progressively worsening shortness of breath and lower extremity swelling. For 1-2 weeks prior the pt had not been taking all of his meds due to misplacing them and/or running out. It is not clear what medications he was was taking. He stopped using meth after his first heart failure exacerbation in August. The information obtained was from his partner, Kirstin, who was in the room and from past notes as the pt was very tired. He was found to be in afib with RVR, HR 140s on admit. Overnight he a 1 minute run on VT. He was started on amiodarone but became agitated and demanded it be stopped. Precedex and phenylephrine were started. He had two 10 beat runs of NSVT this morning. This morning milrinone was started. His urine output remains poor. Meds Home Medications and Allergies Home Medications Medication Instructions Recorded Confirmed Type apixaban 5 mg tablet (Eliquis) 5 mg PO BID 12/23/21 12/23/21 History lisinopril 2.5 mg tablet 2.5 mg PO DAILY 12/23/21 12/23/21 History acetaminophen 325 mg tablet 650 mg PO Q6HR PRN Fever/Mild Pain 12/26/21 Rx (1-3) #100 tabs apixaban 5 mg tablet (Eliquis) 5 mg PO BID #60 tabs 12/26/21 02/13/22 Rx bumetanide 1 mg tablet 1 mg PO DAILY #30 tabs 12/26/21 Rx furosemide 40 mg tablet 80 mg PO 0800,1200,1700 #180 tabs 12/26/21 02/13/22 Rx lisinopril 5 mg tablet 2.5 mg PO DAILY #30 tabs 12/26/21 Rx metoprolol succinate 25 mg 25 mg PO BID #60 tabs 12/26/21 02/13/22 Rx tablet,extended release 24 hr spironolactone 25 mg tablet 25 mg PO DAILY #30 tabs 12/26/21 Rx Allergies Allergy/AdvReac Type Severity Reaction Status Date / Time No Known Drug Allergies Allergy Verified 02/13/22 11:11 Exam Vital Signs (past 8 hours): - 02/14/22 05:10 02/14/22 04:20 02/14/22 04:20 Temperature 96.5 F L Pulse Rate 81 99 H Respiratory Rate 23 18 Blood Pressure 115/56 L 104/55 L Pulse Oximetry 100 100 Oxygen Flow Rate 80 Fraction of Inspired Oxygen 02/14/22 04:30 02/14/22 04:31 02/14/22 04:31 Temperature Pulse Rate 93 H 95 H Respiratory Rate 17 16 Blood Pressure 116/87 Pulse Oximetry 100 100 Oxygen Flow Rate Fraction of Inspired Oxygen 02/14/22 04:48 02/14/22 04:48 02/14/22 05:00 Temperature Pulse Rate 106 H 89 Respiratory Rate 18 13 Blood Pressure 86/65 L Pulse Oximetry 100 99 Oxygen Flow Rate Fraction of Inspired Oxygen 02/14/22 04:24 02/14/22 05:39 02/14/22 06:01 Temperature Pulse Rate 93 H Respiratory Rate 18 Blood Pressure 104/55 L 88/69 L 94/74 Pulse Oximetry 100 Oxygen Flow Rate 80 Fraction of Inspired Oxygen 80 70 02/14/22 05:08 02/14/22 05:08 02/14/22 05:30 Temperature Pulse Rate 83 93 H Respiratory Rate 13 17 Blood Pressure 115/56 L Pulse Oximetry 100 Oxygen Flow Rate Fraction of Inspired Oxygen 02/14/22 05:31 02/14/22 05:31 02/14/22 05:46 Temperature Pulse Rate 86 93 H Respiratory Rate 15 18 Blood Pressure 88/69 L Pulse Oximetry 90 L 100 Oxygen Flow Rate Fraction of Inspired Oxygen 02/14/22 05:46 02/14/22 06:00 02/14/22 06:16 Temperature Pulse Rate 102 H 86 Respiratory Rate 22 17 Blood Pressure 94/74 Pulse Oximetry 82 L 99 Oxygen Flow Rate Fraction of Inspired Oxygen 02/14/22 06:16 02/14/22 06:30 02/14/22 06:30 Temperature Pulse Rate 96 H Respiratory Rate 30 H Blood Pressure 101/70 99/81 Pulse Oximetry 97 Oxygen Flow Rate Fraction of Inspired Oxygen 02/14/22 06:55 02/14/22 06:55 02/14/22 07:00 Temperature Pulse Rate 92 H Respiratory Rate 28 H Blood Pressure 115/77 115/82 Pulse Oximetry 95 Oxygen Flow Rate Fraction of Inspired Oxygen 02/14/22 07:00 02/14/22 07:15 02/14/22 07:15 Temperature 98 F Pulse Rate 91 H 97 H Respiratory Rate 42 H 27 H Blood Pressure 102/82 Pulse Oximetry 87 L 97 Oxygen Flow Rate 0 Fraction of Inspired Oxygen 02/14/22 07:30 02/14/22 07:31 02/14/22 07:31 Temperature Pulse Rate 100 H 97 H Respiratory Rate 36 H 30 H Blood Pressure 101/77 Pulse Oximetry 98 98 Oxygen Flow Rate Fraction of Inspired Oxygen 02/14/22 07:49 02/14/22 07:49 02/14/22 07:54 Temperature Pulse Rate 91 H Respiratory Rate 22 Blood Pressure 82/45 L 93/66 Pulse Oximetry 99 Oxygen Flow Rate Fraction of Inspired Oxygen 02/14/22 07:54 02/14/22 08:00 02/14/22 08:05 Temperature Pulse Rate 94 H 92 H Respiratory Rate 27 H 42 H Blood Pressure 117/86 Pulse Oximetry 89 L 99 Oxygen Flow Rate Fraction of Inspired Oxygen 02/14/22 08:05 02/14/22 08:15 02/14/22 08:15 Temperature Pulse Rate 88 87 Respiratory Rate 20 21 Blood Pressure 115/99 H Pulse Oximetry 97 87 L Oxygen Flow Rate Fraction of Inspired Oxygen 02/14/22 08:30 02/14/22 08:31 02/14/22 08:31 Temperature Pulse Rate 98 H 91 H Respiratory Rate 26 H 22 Blood Pressure 128/111 H Pulse Oximetry Oxygen Flow Rate Fraction of Inspired Oxygen 02/14/22 08:46 02/14/22 08:46 02/14/22 08:52 Temperature Pulse Rate 92 H Respiratory Rate 37 H Blood Pressure 109/64 92/75 Pulse Oximetry 99 Oxygen Flow Rate Fraction of Inspired Oxygen 02/14/22 08:52 02/14/22 08:56 02/14/22 08:56 Temperature Pulse Rate 84 83 Respiratory Rate 11 L 11 L Blood Pressure 129/81 Pulse Oximetry 95 94 Oxygen Flow Rate Fraction of Inspired Oxygen 02/14/22 09:00 02/14/22 09:00 02/14/22 09:06 Temperature Pulse Rate 82 Respiratory Rate 27 H Blood Pressure 114/78 98/57 L Pulse Oximetry 94 Oxygen Flow Rate Fraction of Inspired Oxygen 02/14/22 09:06 02/14/22 09:11 02/14/22 09:11 Temperature Pulse Rate 86 84 Respiratory Rate 22 22 Blood Pressure 91/72 Pulse Oximetry 99 100 Oxygen Flow Rate Fraction of Inspired Oxygen 02/14/22 09:15 02/14/22 09:15 02/14/22 09:20 Temperature Pulse Rate 80 88 Respiratory Rate 34 H 28 H Blood Pressure 101/84 Pulse Oximetry 100 100 Oxygen Flow Rate Fraction of Inspired Oxygen 02/14/22 09:20 02/14/22 09:28 02/14/22 09:28 Temperature Pulse Rate 81 Respiratory Rate 36 H Blood Pressure 110/94 H 100/56 L Pulse Oximetry 100 Oxygen Flow Rate Fraction of Inspired Oxygen 02/14/22 09:30 02/14/22 09:34 02/14/22 09:34 Temperature Pulse Rate 82 86 Respiratory Rate 37 H 19 Blood Pressure 139/97 H Pulse Oximetry 100 100 Oxygen Flow Rate Fraction of Inspired Oxygen 02/14/22 09:39 02/14/22 09:39 02/14/22 09:46 Temperature Pulse Rate 82 Respiratory Rate 26 H Blood Pressure 91/61 122/81 Pulse Oximetry 100 Oxygen Flow Rate Fraction of Inspired Oxygen 02/14/22 09:46 02/14/22 10:00 02/14/22 10:00 Temperature Pulse Rate 87 90 Respiratory Rate 21 19 Blood Pressure 112/75 Pulse Oximetry 98 98 Oxygen Flow Rate Fraction of Inspired Oxygen 02/14/22 10:16 02/14/22 10:16 02/14/22 10:30 Temperature Pulse Rate 82 80 Respiratory Rate 16 18 Blood Pressure 120/93 H Pulse Oximetry 99 97 Oxygen Flow Rate Fraction of Inspired Oxygen 02/14/22 10:32 02/14/22 10:32 02/14/22 10:46 Temperature Pulse Rate 73 Respiratory Rate 19 Blood Pressure 92/72 94/79 Pulse Oximetry 97 Oxygen Flow Rate Fraction of Inspired Oxygen 02/14/22 10:46 02/14/22 11:00 02/14/22 11:01 Temperature Pulse Rate 75 73 Respiratory Rate 23 23 Blood Pressure 92/74 Pulse Oximetry 98 97 Oxygen Flow Rate Fraction of Inspired Oxygen 02/14/22 11:01 Temperature Pulse Rate 71 Respiratory Rate 26 H Blood Pressure Pulse Oximetry 97 Oxygen Flow Rate Fraction of Inspired Oxygen Fraction of Inspired Oxygen 70 Oxygen Delivery Method BiPAP Oxygen Flow Rate 0 Gen sadaf: sleepy, barely arousable HEENT: NCAT CV: irregularly irregular, distant heart sounds, no murmurs, JVP hard to assess due to patient habitus and presence of central, 3+ LE edema Resp: Poor aeration, coarse b/l Abd: obese, soft Neuro: sleepy Psych: unable to assess due to patient condition Skin: cold extremities Objective Labs Result Diagrams: 02/14/22 06:10 02/14/22 06:10 Labs: Laboratory Results - last 24 hr 02/13/22 02/13/22 02/13/22 10:55 11:20 11:44 WBC RBC Hgb Hct MCV MCH MCHC RDW Plt Count Neut % (Auto) Lymph % (Auto) [place] % (Auto) Eos % (Auto) Baso % (Auto) Neut # (Auto) Lymph # (Auto) [place] # (Auto) Eos # (Auto) Baso # (Auto) ABG pH 7.43 ABG pCO2 35.2 ABG pO2 93 ABG HCO3 24 ABG Total CO2 25 ABG O2 Saturation 98 ABG Base Excess -1.0 FiO2 24 Sodium Potassium Chloride Carbon Dioxide BUN Creatinine Estimated GFR BUN/Creatinine Ratio Glucose Lactate Calcium Magnesium Total Bilirubin AST ALT Alkaline Phosphatase Troponin I 0.056 H Total Protein Albumin Globulin Albumin/Globulin Ratio Nasal Screen MRSA (PCR) SARS-CoV-2 (PCR) Negative 02/13/22 02/13/22 02/13/22 13:30 13:40 13:40 WBC RBC Hgb Hct MCV MCH MCHC RDW Plt Count Neut % (Auto) Lymph % (Auto) [place] % (Auto) Eos % (Auto) Baso % (Auto) Neut # (Auto) Lymph # (Auto) [place] # (Auto) Eos # (Auto) Baso # (Auto) ABG pH ABG pCO2 ABG pO2 ABG HCO3 ABG Total CO2 ABG O2 Saturation ABG Base Excess FiO2 Sodium Potassium Chloride Carbon Dioxide BUN Creatinine Estimated GFR BUN/Creatinine Ratio Glucose Lactate 1.6 Calcium Magnesium 2.1 Total Bilirubin AST ALT Alkaline Phosphatase Troponin I Total Protein Albumin Globulin Albumin/Globulin Ratio Nasal Screen MRSA (PCR) Negative for mrsa SARS-CoV-2 (PCR) 02/13/22 02/13/22 02/14/22 21:50 21:50 06:10 WBC 9.7 RBC 5.41 Hgb 15.9 Hct 48.7 MCV 89.9 MCH 29.4 MCHC 32.7 RDW 17.1 H Plt Count 177 Neut % (Auto) 63.5 Lymph % (Auto) 24.7 L [place] % (Auto) 10.8 Eos % (Auto) 0.3 L Baso % (Auto) 0.7 Neut # (Auto) 6200 Lymph # (Auto) 2400 [place] # (Auto) 1000 H Eos # (Auto) 0 Baso # (Auto) 100 ABG pH ABG pCO2 ABG pO2 ABG HCO3 ABG Total CO2 ABG O2 Saturation ABG Base Excess FiO2 Sodium 139 Potassium 4.7 Chloride 104 Carbon Dioxide 24 BUN 30 H Creatinine 1.62 H Estimated GFR 46 L BUN/Creatinine Ratio 18.5 Glucose 86 Lactate Calcium 8.2 L Magnesium 2.2 Total Bilirubin 1.5 H AST 33 ALT 28 Alkaline Phosphatase 86 Troponin I 0.049 H Total Protein 6.9 Albumin 3.6 Globulin 3.3 Albumin/Globulin Ratio 1.1 Nasal Screen MRSA (PCR) SARS-CoV-2 (PCR) 02/14/22 06:10 WBC RBC Hgb Hct MCV MCH MCHC RDW Plt Count Neut % (Auto) Lymph % (Auto) [place] % (Auto) Eos % (Auto) Baso % (Auto) Neut # (Auto) Lymph # (Auto) [place] # (Auto) Eos # (Auto) Baso # (Auto) ABG pH ABG pCO2 ABG pO2 ABG HCO3 ABG Total CO2 ABG O2 Saturation ABG Base Excess FiO2 Sodium 139 Potassium 4.9 Chloride 102 Carbon Dioxide 26 BUN 33 H Creatinine 1.74 H Estimated GFR 42 L BUN/Creatinine Ratio 19.0 Glucose 85 Lactate Calcium 8.4 Magnesium 2.3 Total Bilirubin 1.3 AST 84 H ALT 52 H Alkaline Phosphatase 96 Troponin I Total Protein 6.6 Albumin 3.4 L Globulin 3.2 Albumin/Globulin Ratio 1.1 Nasal Screen MRSA (PCR) SARS-CoV-2 (PCR) [facility] Medical History Acute on chronic HFrEF (heart failure with reduced ejection fraction) Anticoagulant prescribed at discharge Cardiomyopathy Congestive heart failure Hypertension Surgical History No significant past surgical history Family History Father Congestive heart failure Cancer Mother No pertinent past medical history Social History household members: significant other and children Tobacco & Substance Use Smoking Status: Current some day smoker alcohol intake: never Assessment & Plan Assessment & Plan narrative: 66 yo M with complex medical history admitted with heart failure exacerbation from med non-compliance and now in cardiogenic shock. # Cardiogenic shock: patient is cold and wet with low BP. We tried to start IV dobutamine but it is not available. Therefore, we agree with using IV milrinone at 0.25mcg/kg/min for inotropic support and wean off phenylephrine as BP allows. - Continue IV furosemide 60mg bid. Suggest crocker for urine measurement - Hold off on metoprolol, TIMUR-i/ARB/ARNI, and spironolactone due to hypotension and LOIDA # Ventricular tachycardia: lasted over 1 minute overnight. Etiology likely from severe dilated cardiomyopathy, with EF 15-20%. - Consider re-trial of IV amidarone gtt # Persistent AF: well rate controlled. - Continue eliatiya for now Recommend transfer to [facility] where he sees cardiology for higher level and more continuity of care. Time Spent With Patient Critical Care time: I spent a total of [] minutes of critical care time on this patient's care today; this time is exclusive of procedural time.
--- NOTE | 2022-02-14 12:37 | CM.DANOTE ---
Initial DCP Assessment Note Pt is a 66 yo male, resident of [place] (hotel?), arrives 02.13.22 with trouble breathing, suspected medication non compliance Complex medical hx to include but not limited to: history of methamphetamine use (last tox done at 12.23.21 was + for meth), ischemic cardiomyopathy, heart failure with a reduced ejection fraction of 15%, paroxysmal atrial fibrillation, CHF Admitted to ICU for management of heart failure, hepatic failure, vtach, on bipap awaiting transfer for higher level of care PCP: Unknown Payer: [employer] Patient awaiting transfer BELL Dennis Discharge Planning/Care Management CM Discharge Assessment Start: 02/14/22 12:34 Freq: Status: Active Protocol: Document 02/14/22 12:34 BOBO (Rec: 02/14/22 12:37 BOBO [id number]) Discharge Planning Assessment 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 No Advance Directives on File No History Provided By Medical Record Comment [facility] Household Members significant other Type of transporation used prior to Relies on Others admit Independent with ADL's Yes Is patient alert and oriented? Yes Needs Assistance With Home Chores / Shopping Comment Transfer Discharge Plan Transfer to Higher Level of Care Transportation Arrangement medical transport
[2022-02-14] MEDS: PHENYLEPHRINE 40,000 MCG in DEXTROSE 5% IN WATER 250 ML 22.5 MCG IV (13:04)
--- NOTE | 2022-02-14 13:24 | PM.PROC.1 ---
Procedures Date/Time Date of procedure: 02/14/22 Time of procedure: 09:00 Central Line Placement Time out performed: Yes Patient placed on monitor/pulse ox: Yes MD prep: mask, gown, gloves and other (scrub cap) Local anesthesia used: lidocaine 1% Amount of anesthesia used (ml): 5 Ultrasound used for placement: Yes Central line lumen inserted: triple Post procedure: sutured in place, good blood return, all ports aspirated, flushed, capped and sterile dressing applied Post procedure x-ray: tip of catheter in good position and no pneumothorax seen Patient tolerated procedure: well and no complications Complications: none Additional comments: pt lightly sedated on precedex during procedure. NC02, VSS. Tolerated well.
--- NOTE | 2022-02-14 13:32 | PM.PROC.1 ---
Procedures Date/Time Date of procedure: 02/14/22 Time of procedure: 11:00 Central Line Placement Time out performed: Yes Patient placed on monitor/pulse ox: Yes MD prep: mask, gown, gloves and other (scrub cap) Local anesthesia used: lidocaine 1% Amount of anesthesia used (ml): 5 Ultrasound used for placement: Yes Central line lumen inserted: triple Post procedure: sutured in place, good blood return, all ports aspirated, flushed, capped and sterile dressing applied Post procedure x-ray: tip of catheter in good position and no pneumothorax seen Patient tolerated procedure: well and no complications Complications: none Additional comments: 2mg versed, NCO2, tolerated well. VSS
[2022-02-14] MEDS: AMIODARONE 360 MG/200 ML PIGGYBACK IV (14:21)
--- NOTE | 2022-02-14 18:44 | P.PN_ITS ---
Subjective Subjective Interval history: Patient most of the day was sleepy but arousable, following commands when he wakes up. I had a very long conversation with patient's at bedside regarding goals of care, explained overall prognosis. Cardiology came to see the patient and tele ICU physician also noted in the patient care. Resumed amiodarone along with Milrinone and phenylephrine. We initiated transferred to outside facility for higher level of care as recommended by Cardiology, pending bed availability at [facility]. Patient is DNR status as per discussion with goals of care and also patient confirmed. Review of systems is positive for some shortness of breath, sleepiness, discomfort in general. Denies abdominal pain. Exam Vital Signs (past 8 hours): - 02/14/22 10:46 02/14/22 10:46 02/14/22 11:00 Temperature Pulse Rate 75 73 Respiratory Rate 23 23 Blood Pressure 94/79 Pulse Oximetry 98 97 Oxygen Delivery Method Oxygen Flow Rate 02/14/22 11:01 02/14/22 11:01 02/14/22 11:00 Temperature Pulse Rate 71 Respiratory Rate 26 H Blood Pressure 92/74 Pulse Oximetry 97 96 Oxygen Delivery Method Nasal Cannula Oxygen Flow Rate 2 02/14/22 11:19 02/14/22 11:19 02/14/22 11:30 Temperature Pulse Rate 83 Respiratory Rate 20 Blood Pressure 98/68 95/70 Pulse Oximetry 97 Oxygen Delivery Method Oxygen Flow Rate 02/14/22 11:30 02/14/22 11:50 02/14/22 11:50 Temperature Pulse Rate 78 86 Respiratory Rate 36 H 37 H Blood Pressure 102/74 Pulse Oximetry 97 96 Oxygen Delivery Method Oxygen Flow Rate 02/14/22 12:00 02/14/22 12:01 02/14/22 12:01 Temperature Pulse Rate 80 88 Respiratory Rate 18 24 Blood Pressure 107/58 L Pulse Oximetry 96 96 Oxygen Delivery Method Oxygen Flow Rate 02/14/22 12:15 02/14/22 12:15 02/14/22 12:00 Temperature Pulse Rate 87 Respiratory Rate 24 Blood Pressure 99/58 L Pulse Oximetry 94 Oxygen Delivery Method Nasal Cannula Oxygen Flow Rate 02/14/22 12:30 02/14/22 12:35 02/14/22 12:35 Temperature Pulse Rate 89 94 H Respiratory Rate 16 17 Blood Pressure 108/74 Pulse Oximetry 95 95 Oxygen Delivery Method Oxygen Flow Rate 02/14/22 12:45 02/14/22 12:45 02/14/22 13:00 Temperature Pulse Rate 101 H 113 H Respiratory Rate 33 H 25 H Blood Pressure 113/84 Pulse Oximetry 96 96 Oxygen Delivery Method Oxygen Flow Rate 02/14/22 13:01 02/14/22 13:01 02/14/22 13:04 Temperature Pulse Rate 117 H Respiratory Rate 24 Blood Pressure 124/102 H 129/103 H Pulse Oximetry 95 Oxygen Delivery Method Oxygen Flow Rate 02/14/22 13:04 02/14/22 13:23 02/14/22 13:23 Temperature Pulse Rate 112 H 101 H Respiratory Rate 36 H 22 Blood Pressure 94/60 Pulse Oximetry 97 93 Oxygen Delivery Method Oxygen Flow Rate 02/14/22 13:30 02/14/22 13:30 02/14/22 13:45 Temperature Pulse Rate 94 H 89 Respiratory Rate 37 H 16 Blood Pressure 105/73 Pulse Oximetry 93 93 Oxygen Delivery Method Oxygen Flow Rate 02/14/22 13:45 02/14/22 14:00 02/14/22 14:00 Temperature Pulse Rate 98 H Respiratory Rate 15 Blood Pressure 101/68 105/59 L Pulse Oximetry 92 Oxygen Delivery Method Oxygen Flow Rate 02/14/22 14:15 02/14/22 14:15 02/14/22 14:30 Temperature Pulse Rate 90 Respiratory Rate 14 Blood Pressure 102/60 106/79 Pulse Oximetry 92 Oxygen Delivery Method Oxygen Flow Rate 02/14/22 14:30 02/14/22 14:45 02/14/22 14:45 Temperature Pulse Rate 97 H 108 H Respiratory Rate 29 H 35 H Blood Pressure 112/83 Pulse Oximetry 92 94 Oxygen Delivery Method Oxygen Flow Rate 02/14/22 15:00 02/14/22 16:00 02/14/22 15:01 Temperature Pulse Rate 122 H Respiratory Rate 31 H Blood Pressure 97/62 Pulse Oximetry 94 Oxygen Delivery Method Nasal Cannula Oxygen Flow Rate 02/14/22 15:01 02/14/22 15:16 02/14/22 15:16 Temperature 98.7 F Pulse Rate 112 H 128 H Respiratory Rate 36 H 23 Blood Pressure 125/84 Pulse Oximetry 94 96 Oxygen Delivery Method Oxygen Flow Rate 2 02/14/22 15:30 02/14/22 15:31 02/14/22 15:31 Temperature Pulse Rate 129 H 117 H Respiratory Rate 21 21 Blood Pressure 109/70 Pulse Oximetry 95 95 Oxygen Delivery Method Oxygen Flow Rate 02/14/22 15:49 02/14/22 15:49 02/14/22 16:00 Temperature Pulse Rate 131 H 130 H Respiratory Rate 25 H 25 H Blood Pressure 114/87 Pulse Oximetry 95 95 Oxygen Delivery Method Oxygen Flow Rate 02/14/22 16:01 02/14/22 16:01 02/14/22 16:15 Temperature Pulse Rate 131 H Respiratory Rate 19 Blood Pressure 111/64 115/56 L Pulse Oximetry 95 Oxygen Delivery Method Oxygen Flow Rate 02/14/22 16:15 02/14/22 16:30 02/14/22 16:30 Temperature Pulse Rate 121 H 118 H Respiratory Rate 20 34 H Blood Pressure 102/58 L Pulse Oximetry 95 94 Oxygen Delivery Method Oxygen Flow Rate 02/14/22 16:45 02/14/22 16:45 02/14/22 17:00 Temperature Pulse Rate 110 H Respiratory Rate 18 Blood Pressure 93/58 L 100/64 Pulse Oximetry 94 Oxygen Delivery Method Oxygen Flow Rate 02/14/22 17:00 02/14/22 17:16 02/14/22 17:16 Temperature Pulse Rate 123 H 126 H Respiratory Rate 14 14 Blood Pressure 125/79 Pulse Oximetry 93 93 Oxygen Delivery Method Oxygen Flow Rate 02/14/22 17:30 02/14/22 17:30 02/14/22 17:45 Temperature Pulse Rate 123 H Respiratory Rate 14 Blood Pressure 114/66 101/75 Pulse Oximetry 91 Oxygen Delivery Method Oxygen Flow Rate 02/14/22 17:45 02/14/22 18:00 02/14/22 18:01 Temperature Pulse Rate 146 H 141 H 142 H Respiratory Rate 37 H 25 H 25 H Blood Pressure Pulse Oximetry 91 84 L 93 Oxygen Delivery Method Oxygen Flow Rate 02/14/22 18:01 Temperature Pulse Rate Respiratory Rate Blood Pressure 119/68 Pulse Oximetry Oxygen Delivery Method Oxygen Flow Rate Fraction of Inspired Oxygen 70 Oxygen Delivery Method Nasal Cannula Oxygen Flow Rate 2 Narrative Exam Narrative: Exam positive for central line, abdominal distention, no tenderness, significant pedal edema, scrotal edema. Crackles on lung examination bilateral, tachycardia on cardiac examination. Neurologically intact but mostly lethargic probably related to medication. Patient is obese. Constitutional, HEENT, GI, cardiovascular, respiratory, skin, neuro exam done, negative other than as mentioned above Objective Labs Result Diagrams: 02/14/22 06:10 02/14/22 06:10 Labs: Laboratory Results - last 24 hr 02/13/22 02/13/22 02/14/22 21:50 21:50 06:10 WBC 9.7 RBC 5.41 Hgb 15.9 Hct 48.7 MCV 89.9 MCH 29.4 MCHC 32.7 RDW 17.1 H Plt Count 177 Neut % (Auto) 63.5 Lymph % (Auto) 24.7 L [place] % (Auto) 10.8 Eos % (Auto) 0.3 L Baso % (Auto) 0.7 Neut # (Auto) 6200 Lymph # (Auto) 2400 [place] # (Auto) 1000 H Eos # (Auto) 0 Baso # (Auto) 100 Sodium 139 Potassium 4.7 Chloride 104 Carbon Dioxide 24 BUN 30 H Creatinine 1.62 H Estimated GFR 46 L BUN/Creatinine Ratio 18.5 Glucose 86 Calcium 8.2 L Magnesium 2.2 Total Bilirubin 1.5 H AST 33 ALT 28 Alkaline Phosphatase 86 Troponin I 0.049 H Total Protein 6.9 Albumin 3.6 Globulin 3.3 Albumin/Globulin Ratio 1.1 02/14/22 06:10 WBC RBC Hgb Hct MCV MCH MCHC RDW Plt Count Neut % (Auto) Lymph % (Auto) [place]pp % (Auto) Eos % (Auto) Baso % (Auto) Neut # (Auto) Lymph # (Auto) Tripp # (Auto) Eos # (Auto) Baso # (Auto) Sodium 139 Potassium 4.9 Chloride 102 Carbon Dioxide 26 BUN 33 H Creatinine 1.74 H Estimated GFR 42 L BUN/Creatinine Ratio 19.0 Glucose 85 Calcium 8.4 Magnesium 2.3 Total Bilirubin 1.3 AST 84 H ALT 52 H Alkaline Phosphatase 96 Troponin I Total Protein 6.6 Albumin 3.4 L Globulin 3.2 Albumin/Globulin Ratio 1.1 [facility] Medical History Acute on chronic HFrEF (heart failure with reduced ejection fraction) Anticoagulant prescribed at discharge Cardiomyopathy Congestive heart failure Hypertension Surgical History No significant past surgical history Family History Father Congestive heart failure Cancer Mother No pertinent past medical history Social History household members: significant other Smoking Status: Current some day smoker alcohol intake: never Assessment & Plan Assessment & Plan narrative: Cardiogenic shock requiring pressors most likely worsening of his end-stage heart failure -continue amiodarone, Milrinone, phenylephrine -need transferred to higher level of care given recurrent V-tach episodes and possibly need a cardioversion Severe acute on chronic systolic heart failure -Lasix 60 mg t.i.d., Laird catheter, strict Is&Os, 1.5 L fluid restriction Paroxysmal atrial fibrillation with RVR ?- restart home metoprolol. ?- continue apixban NSTEMI type 2 most likely demand ischemia secondary to AFib RVR possibly contributing to his worsening of heart failure Hx of Methampetamine use Code: DNR as confirmed by patient, nurse witnessed conversation at bedside DVT: on apixban Time Spent With Patient Critical Care time: I spent a total of [] minutes of critical care time on this patient's care today; this time is exclusive of procedural time.
[2022-02-14] MEDS: METOPROLOL ER 25 MG TABLET PO (20:29)
--- NOTE | 2022-02-14 20:41 | PM.ICURNDS ---
- :: This patient was seen via real time interactive two-way audiovisual telecommunication. Patient currently on amip per cards, will closely monitor LFT. Currntly MAP is improved and is off phenylephrine with MAP of 72. He remains on milrinone and is now procuding good amopunts of urine. Has runs of NSVT, but lopressor to be given this evening.
[2022-02-15] VITALS (10 sets, daily range): BP systolic 96–141; BP diastolic 52–88; PULSE 108–132; RESP 23–32; O2SAT 95–98
[2022-02-15] MEDS: FUROSEMIDE 100 MG/10 ML VIAL 60 MG IV (00:44)
[2022-02-15] MEDS: AMIODARONE 360 MG/200 ML PIGGYBACK 9.278 MG IV (02:05)
[2022-02-15] MEDS: AMIODARONE 360 MG/200 ML PIGGYBACK 16.7 MG IV (02:46)
--- NOTE | 2022-02-15 02:59 | PC.NURSE ---
Addendum entered by Amy Valdes R.N. 02/15/22 05:44: Report given to Carly López MD. Patient transferred via gurney with [facility] Flight Crew. Addendum entered by Amy Valdes R.N. 02/15/22 05:01: Report called to Scott RODRIGUEZ at [facility] for pending transfer. HR remains 106-130, Afib, BBB. Discussed labile BP and Amiodarone and Milrinone drips. Patient's significant other, Doris, also called and notified of patient's acceptance and pending transfer to . Original Note: Patient remains in Afib, RVR. Patient continues on Amiodarone drip 0.5mg/min with HR 105-130. SBP 106-164. DBP 64-96. Discussed with ZECHARIAH Young and no adjustments made in Amiodarone drip. Milrenone drip continues at 0.25 mcg/kg/min. Patient continues to be have dyspnea with talking. Lungs with coarse crackles posterior quigley. Lasix 60 mg IVP given with 1100 ml out per crocker catheter in the last 8 hours. Patient states overall he is feeling much better since admission.
[2022-02-15 05:33] LABS: Add Manual Diff / Slide Review NO; Basophils Absolute Auto 100 /uL (0-100); Basophils Percent Auto 0.9 % (0-2); Eosinophils Absolute Auto 200 /uL (0-450); Eosinophils Percent Auto 1.7 % (2-4); Hematocrit 41.4 % (41-53); Hemoglobin 13.8 g/dL (13.5-17.5); Lymphocytes Absolute Auto 1400 /uL (1100-4500); Lymphocytes Percent Auto 14.5 % (25-40); Mean Corpuscular HGB Conc 33.4 % (30-36); Mean Corpuscular Hemoglobin 29.5 PG (26-34); Mean Corpuscular Volume 88.2 fL (80-100); Monocytes Absolute Auto 1000 /uL (0-900); Monocytes Percent Auto 10.2 % (3-14); Neutrophils Absolute Auto 7100 /uL (1500-7000); Neutrophils Percent Auto 72.7 % (50-75); Platelet Count 167 X10^3/uL (150-400); Red Blood Cell Count 4.69 X10^6/uL (4.5-5.9); Red Cell Distribution Width 16.8 % (11.6-14.8); White Blood Cell Count 9.7 X10^3/uL (4.5-11.0)
[2022-02-15 05:50] LABS: Alanine Aminotransferase 96 IU/L (<50); Albumin 3.1 g/dL (3.5-5.0); Alkaline Phosphatase 91 U/L (38-126); Aspartate Aminotransferase 124 IU/L (17-59); BUN Creatinine Ratio 22.9 (6-22); Bilirubin Total 1.3 mg/dL (0.2-1.3); Blood Urea Nitrogen 36 mg/dL (9-20); Calcium 8.1 mg/dL (8.4-10.2); Carbon Dioxide 28 mmol/L (22-32); Chloride 99 mmol/L (98-107); Estimated Glomerular Filt Rate 48 mL/min (>60); Glucose 107 mg/dL (80-110); HEMOLYSIS < 15 (0-50); Magnesium 1.8 mg/dL (1.6-2.3); Sodium 138 mmol/L (137-145); Total Protein 6.1 g/dL (6.3-8.2)
--- NOTE | 2022-02-15 11:23 | P.DS_ITS ---
History of Present Illness History of Present Illness Date Patient Seen: 02/14/22 Chief complaint: Trouble breathing Narrative: Refer to H and P note Discharge Providers Provider Date of admission: 02/14/22 01:08 Discharge Date: 02/15/22 Primary care physician: Doctor Rob MD Consults: 02/13/22 23:45 Consult to Respiratory Therapy DAILY Comment: Bipap Physician Instructions: Evaluate and treat 02/13/22 23:47 Consult to Tele-modeling analyst Routine Comment: Consulting Provider: [employer] [employer] Reason for consultation: Food Service Supervisor services Has provider been notified: Yes Discharge provider: Jem Rodas MD Summary Hospital Course Discharge Diagnosis: Cardiogenic shock requiring pressors most likely worsening of his end-stage heart failure Severe acute on chronic systolic heart failure Paroxysmal atrial fibrillation with RVR Demand ischemia secondary to AFib RVR Hx of Methampetamine use Hospital Course: Patient initially admitted to medical floor for AFib RVR, quickly deteriorated. I had a very long conversation with patient's at bedside regarding goals of care, explained overall prognosis.? Cardiology came to see the patient and tele ICU physician also noted in the patient care.? 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 As recommended by Cardiology and tele ICU attending, we initiated transferred to outside facility for higher level of care at [facility].? Patient is DNR status as per discussion with goals of care and also patient confirmed.? Patient treated for Cardiogenic shock requiring pressors most likely worsening of his end-stage heart failure -continue amiodarone, Milrinone, phenylephrine - need transferred to higher level of care given recurrent V-tach episodes. Severe acute on chronic systolic heart failure -Lasix 60 mg t.i.d., Laird catheter, strict Is&Os, 1.5 L fluid restriction Paroxysmal atrial fibrillation with RVR -continue anticoagulation, rate control NSTEMI type 2? most likely demand ischemia secondary to AFib RVR possibly contributing to his worsening of heart failure -Cardiology for further recommendation Hx of Methampetamine use Code: DNR as confirmed by patient, nurse witnessed conversation at bedside Status at Discharge Cognitive/behavioral status at discharge: confused Functional status at discharge: wheelchair bound Overall status at discharge: other (Transfer to higher level of care at [facility] for further recommendations given deterioration of his cardiac status) Exam Vital Signs (past 8 hours): - 02/15/22 04:00 02/15/22 05:00 Pulse Rate 108 H 117 H Blood Pressure 96/52 L 106/59 L Fraction of Inspired Oxygen 70 Oxygen Delivery Method Nasal Cannula Oxygen Flow Rate 2 Narrative Exam Narrative: Patient blood pressure stabilized, breathing status slowly improving on multiple doses of Lasix. Still have significant edema. Objective Labs Result Diagrams: 02/15/22 04:54 02/15/22 04:54 Labs: Laboratory Results - last 24 hr 02/15/22 02/15/22 04:54 04:54 WBC 9.7 RBC 4.69 Hgb 13.8 Hct 41.4 MCV 88.2 MCH 29.5 MCHC 33.4 RDW 16.8 H Plt Count 167 Neut % (Auto) 72.7 Lymph % (Auto) 14.5 L [place] % (Auto) 10.2 Eos % (Auto) 1.7 L Baso % (Auto) 0.9 Neut # (Auto) 7100 H Lymph # (Auto) 1400 [place] # (Auto) 1000 H Eos # (Auto) 200 Baso # (Auto) 100 Sodium 138 Potassium 4.0 Chloride 99 Carbon Dioxide 28 BUN 36 H Creatinine 1.57 H Estimated GFR 48 L BUN/Creatinine Ratio 22.9 H Glucose 107 Calcium 8.1 L Magnesium 1.8 Total Bilirubin 1.3 AST 124 H ALT 96 H Alkaline Phosphatase 91 Total Protein 6.1 L Albumin 3.1 L Globulin 3.0 Albumin/Globulin Ratio 1.0 PFSH Medical History Acute on chronic HFrEF (heart failure with reduced ejection fraction) Anticoagulant prescribed at discharge Cardiomyopathy Congestive heart failure Hypertension Surgical History No significant past surgical history Family History Father Congestive heart failure Cancer Mother No pertinent past medical history Social History household members: significant other Smoking Status: Current some day smoker alcohol intake: never Discharge Assessment & Plan Assessment and Plan Assessment: Please refer to hospital course Plan of Treatment: Transferred to [facility] for further recommendations. Refer to Cardiology on tele ICU consultation for further recommendations during the hospitalization Patient was transferred out during the cork floor installer. Discharge Plan Discharge Plan Patient Disposition: Xfer Acute Care Hospital Discharge orders & Medications Medication counseling provided by Pharmacist: Yes Discharge Data Primary Care Provider: Miscellaneous,Doctor
== END 2022-02-15 05:40 | disposition short-term general hospital (02) | DRG 280 ==
LOC: ED 12:33 → AC 12:37 → ICU 13:09
PROVIDERS: Nurse Practitioner Family; Admitting Provider Internal Medicine; Emergency Provider Emergency Medicine; Referring Provider Emergency Medicine; Visit Provider Internal Medicine
DX: I11.0 Hypertensive heart disease with heart failure (principal); I50.23 Acute on chronic systolic (congestive) heart failure; I21.A1 Myocardial infarction type 2; R57.0 Cardiogenic shock; N17.9 Acute kidney failure, unspecified; I47.20 Ventricular tachycardia, unspecified; I48.0 Paroxysmal atrial fibrillation; T50.2X6A Underdosing of carbonic-anhydrase inhibitors, benzothiadiazides and other diuretics, initial encounter; Z79.01 Long term (current) use of anticoagulants; Z59.1 Inadequate housing; Z20.822 Contact with and (suspected) exposure to COVID-19; Z66 Do not resuscitate
CPT/HCPCS: 36415; 36592; 36600; 71045; 71275; 80053; 82550; 82805; 83605; 83690; 83735; 83880; 84484; 85025; 85610; 87635; 87797; 93005; 93010; 94660; 94762; 96374; 99285; 99291; C9803; G0378; C9113; J0282; J1940; J2260; J2405; Q9967

== ENCOUNTER 2024-11-04 07:37 | Inpatient (IN) | payer OTHER, SELFPAY ==
[2022-02-13 12:43] VITALS: BMI 34.4
[2022-02-14 05:39] VITALS: PULSE 81; RESP 19; O2SAT 100
[2024-11-04] VITALS (43 sets, daily range): BP systolic 103–185; BP diastolic 61–105; PULSE 62–145; RESP 14–40; TEMP 36.2–36.7; O2SAT 79–98; BMI 34.8
--- NOTE | 2024-11-04 07:44 | ED_ITS ---
HPI - General Adult General Chief complaint: Chest Pain Stated complaint: having an attack of some sort Time Seen by Provider: 11/04/24 07:43 Source: patient, RN notes reviewed and old records reviewed Mode of arrival: Family Vehicle Limitations: no limitations History of Present Illness HPI narrative: 69-year-old male history of atrial fibrillation, CHF, history of methamphetamine use causing cardiomyopathy prescribed Eliquis, Jardiance, amiodarone, metoprolol and some other medications he does not recall he was stopped these 2 weeks ago. Patient states in the last several days he noticed numbness and pain in his arms right greater than left in the last day developed substernal chest pain which does not radiate otherwise. He states it has been intermittent. Nothing seems to exacerbate it he has been trying to rest which seems to be somewhat helpful but today has been persisting. States he was felt lightheaded but had no syncope, he feels short of breath today. He describes diaphoresis although he states it has improved currently. Notes he has been nauseated but no vomiting. No issues with bowel movements, no incontinence. No new swelling in his extremities no fevers or chills. He notes that when he was here last was sent to [facility] like he had a ZARINA and a attempted heart catheterization through the wrist and groin but states they both failed and he was ultimately discharged home with supposed to follow up for heart catheterization but never completed this. Patient states was discharged on Eliquis, Jardiance, amiodarone, metoprolol and some additional medications he does not recall the name of he was stopped those about 2 weeks ago because he was feeling much better. He states he was never had any other cardiac interventions no stents, no ablation is no cardioversions. Patient states no known drug allergies. No tobacco, no alcohol, does use marijuana uses methamphetamines intermittently states last use was over a week ago. Has been recently assigned Dr. Valle is his primary care physician. Has seen Cardiology he states through [facility] but in [place]. Related Data Home Medications ?Medication ?Instructions ?Recorded ?Confirmed apixaban 5 mg tablet (Eliquis) 5 mg PO BID 12/23/21 amiodarone 200 mg tablet 200 mg PO DAILY 09/07/2408/26 empagliflozin 10 mg tablet 10 mg PO DAILY 05/07/25 07/ 04/25 (Jardiance) sacubitril 49 mg-valsartan 51 mg 1 tab PO BID 09/07/24 11/04/24 tablet (Entresto) torsemide 20 mg tablet 20 mg PO DAILY 09/07/2408/26 Previous Rx's ?Medication ?Instructions ?Recorded metoprolol succinate 25 mg 25 mg PO BID #60 tabs 12/26 tablet,extended release 24 hr Allergies Allergy/AdvReac Type Severity Reaction Status Date / Time No Known Drug Allergies Allergy Verified 11/04/24 07:48 Review of Systems Review of Systems ROS Unobtainable: All systems reviewed & are unremarkable except as noted in HPI and below Patient History Medical History Atrial fibrillation with RVR Acute renal failure superimposed on chronic kidney disease Elevated troponin Anticoagulant prescribed at discharge Hypertension Congestive heart failure Cardiomyopathy Surgical History No significant past surgical history Family History Father Congestive heart failure Cancer Mother No pertinent past medical history Social History household members: significant other Smoking Status: Former smoker Tobacco: How many years used: 30 alcohol intake: never alcohol intake frequency: holidays/special occasions only Exam Narrative Exam Narrative: GENERAL: Alert and oriented x three, obese male in mild distress. No diaphoresis. HEENT: Head normocephalic, atraumatic, EOMI, pupils reactive, face symmetric, moist mucous membranes NECK: Supple, full range of motion CARDIOVASCULAR: Irregularly irregular and tachycardic rate and rhythm without murmurs, rubs or gallops. Mild edema bilateral lower extremities. RESPIRATORY: Breath sounds equal bilaterally, no wheezes rales or rhonchi. No tachypnea or accessory muscle use. Speaks in full sentences. ABDOMEN: Soft, nontender. Normoactive bowel sounds all 4 quadrants. No guarding or rebound, rigidity, no mass : No CVA tenderness EXTREMITIES: Normal range of motion, no clubbing or edema. Neurovascularly intact NEUROLOGICAL: Cranial nerves II through XII grossly intact. Moving all extremities SKIN: Warm, dry, no petechiae, no rashes or lesions. Initial Vital Signs Initial Vital Signs: Vital Signs Pulse Rate 62 11/04/24 07:42 Course Orders Ordered: Hydrocodone Bitart/Acetaminophen (Hydrocodone/Acet 5/325 Tablet) 1 tab PO Q4H PRN PRN Reason: Pain, Moderate (4-6) Amiodarone HCl (Amiodarone 200 Mg Tablet) 200 mg PO DAILY [facility] Last Admin: 11/04/24 11:45 Dose: 200 mg Documented By: MS Apixaban (Apixaban 5 Mg Tablet) 5 mg PO BID [facility] Last Admin: 11/04/24 11:45 Dose: 5 mg Documented By: MS Diltiazem HCl 125 mg/ Sodium (Chloride) 125 mls @ 5 mls/hr IV TITRATE [facility]; Protocol Last Titration: 11/04/24 16:30 Dose: 0 mg/hr, 0 mls/hr Documented By: Titration: 11/04/24 14:42 Dose: 1 mg/hr, 1 mls/hr Documented By: Titration: 11/04/24 12:29 Dose: 3 mg/hr, 3 mls/hr Documented By: Titration: 11/04/24 10:28 Dose: 5 mg/hr, 5 mls/hr Documented By: Admin: 11/04/24 08:08 Dose: 5 mg/hr, 5 mls/hr Documented By: EVERETT Metoprolol Succinate (Metoprolol Er 25 Mg Tablet) 50 mg PO BID [facility] Last Admin: 11/04/24 17:43 Dose: 50 mg Documented By: MS Naloxone HCl (Naloxone 0.4 Mg/Ml Vial) 0.2 mg IV Q2MIN PRN PRN Reason: Opiate Reversal Non-Formulary Medication (Empagliflozin [Jardiance]) 10 mg PO DAILY [facility] Last Admin: 11/04/24 11:46 Dose: Not Given Documented By: MS Non-Formulary Medication (Sacubitril-Valsartan [Entresto]) 1 tab PO BID [facility] Last Admin: 11/04/24 11:46 Dose: Not Given Documented By: MS Sodium Chloride (Sodium Chloride 0.9% Flush) 10 ml IV BID [facility] Sodium Chloride (Sodium Chloride 0.9% Flush) 10 ml IV PRN PRN PRN Reason: Flush Torsemide (Torsemide 10 Mg Tablet) 20 mg PO DAILY [facility] Last Admin: 11/04/24 11:45 Dose: 20 mg Documented By: Discontinued Medications Aspirin (Aspirin 81 Mg Chew Tab) 324 mg PO NOW ONE Stop: 11/04/24 07:48 Last Admin: 11/04/24 07:56 Dose: 324 mg Documented By: EVERETT Diltiazem HCl (Diltiazem 25 Mg/5 Ml Sdv) 10 mg IV NOW ONE Stop: 11/04/24 08:00 Last Admin: 11/04/24 08:07 Dose: 10 mg Documented By: EVERETT Metoprolol Succinate (Metoprolol Er 25 Mg Tablet) 25 mg PO BID [facility] Last Admin: 11/04/24 11:45 Dose: 25 mg Documented By: Vital Signs Vital signs: Vital Signs - 8 hr 11/04/24 07:42 11/04/24 07:43 11/04/24 07:43 Temperature Pulse Rate 62 141 H Respiratory Rate 36 H Blood Pressure 121/100 H Pulse Oximetry Oxygen Delivery Method 11/04/24 07:47 11/04/24 08:08 Temperature 98.1 F Pulse Rate 139 H 145 H Respiratory Rate 26 H Blood Pressure 121/100 H 124/88 Pulse Oximetry 94 Oxygen Delivery Method Room Air Medical Decision Making Lab Data 11/04/24 07:48 11/04/24 07:48 Labs: Lab Results 11/04/24 Range/Units 07:48 WBC 10.8 (4.5-11.0) X10^3/uL RBC 4.96 (4.5-5.9) X10^6/uL Hgb 16.0 (13.5-17.5) g/dL Hct 47.0 (41-53) % MCV 94.7 (80-100) fL MCH 32.2 (26-34) PG MCHC 34.0 (30-36) % RDW 13.9 (11.6-14.8) % Plt Count 284 (150-400) X10^3/uL Neut % (Auto) 58.5 (50-75) % Lymph % (Auto) 31.3 (25-40) % [place] % (Auto) 8.1 (3-14) % Eos % (Auto) 1.4 L (2-4) % Baso % (Auto) 0.7 (0-2) % Neut # (Auto) 6300 (2303-6864) /uL Lymph # (Auto) 3400 (1221-3064) /uL [place] # (Auto) 900 (0-900) /uL Eos # (Auto) 100 (0-450) /uL Baso # (Auto) 100 (0-100) /uL PT 13.0 H (9.4-12.5) SECONDS INR 1.1 (0.9-1.3) APTT 45 H (25.1-36.5) SECONDS Sodium 142 (137-145) mmol/L Potassium 4.0 (3.4-5.1) mmol/L Chloride 106 (98-107) mmol/L Carbon Dioxide 26 (22-32) mmol/L BUN 18 (9-20) mg/dL Creatinine 1.29 H (0.66-1.25) mg/dL Estimated GFR 60 (>60) mL/min BUN/Creatinine Ratio 14.0 (6-22) Glucose 129 H (70-99) mg/dL Calcium 8.9 (8.4-10.2) mg/dL Magnesium 2.2 (1.6-2.3) mg/dL Total Bilirubin 1.0 (0.2-1.3) mg/dL AST 24 (17-59) IU/L ALT 19 (<50) IU/L Alkaline Phosphatase 77 (38-126) U/L Total Creatine Kinase 86 (55-170) U/L Troponin I 0.051 H (0.01-0.034) ng/mL NT-Pro-B Natriuret Pep 2820 H (<125) pg/mL Total Protein 8.6 H (6.3-8.2) g/dL Albumin 4.7 (3.5-5.0) g/dL Globulin 3.9 (1.7-4.1) g/dL Albumin/Globulin Ratio 1.2 (1.0-2.8) Lipase 125 (23-300) U/L ECG Data Attestation: I personally reviewed and interpreted this ECG as follows: Prior ECG tracings: available for review Interpretation: AFib with rapid ventricular response, left axis deviation, right bundle-branch block rate of 134 QRS of 178 QTC of 576. Patient was prior from 02/13/2022 nonspecific change but it was in AFib RVR as well. 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 For the past 3 days has had initially bilateral upper extremity discomfort and now substernal chest discomfort in his found to be in AFib RVR. Patient had attempted heart catheterization during his hospitalization several years ago but was unsuccessful but did have a ZARINA at that time. EKG shows atrial fibrillation RVR, right bundle-branch block Labs show normal CBC, chemistries are overall appropriate creatinine is 1.29 improved from priors glucose is 129 Mag is 2.2 potassium is 4, troponins indeterminate 0.051, BNP is 2820. Patient's troponins fairly consistent with priors from February of 2022. Chest x-ray shows chronic elevation right hemidiaphragm, mild right basilar atelectasis versus small infiltrate. No pleural effusion or pneumothorax. Patient received aspirin, diltiazem and diltiazem drip. Patient's heart rates improved to 90s to 100s continues to be in atrial fibrillation. Spoke with Dr. Mccoy, hospitalist who accepts for observation. Defers repeat troponin. Critical Care Time Critical Care Time Critical Care Time: Yes Total Critical Care Time: 20 Attestation: The high probability of a clinically significant, sudden or life threatening deterioration of the cardiac system(s) required my full and direct attention, intervention and personal management. The aggregate critical care time was [--] minutes. This time is in addition to time spent performing reported procedures but includes the following: [x] Data Review and interpretation [x] Patient assessment and monitoring of vital signs [x] Documentation [x] Medication orders and management Discharge Plan Departure Patient Disposition: Admitted as Observation Clinical Impression: Atrial fibrillation with rapid ventricular response Admit Date/Time: 11/04/24 08:26 Admit Provider: Anirudh Mccyo
--- NOTE | 2024-11-04 07:47 | DI.RAD.S_ITS ---
PROCEDURE: XR CHEST 1V INDICATIONS: Chest Pain TECHNIQUE: One view of the chest was acquired. COMPARISON: [facility], CR, XR CHEST 1V, 02/14/2022, 9:30. FINDINGS: Surgical changes and devices: None. Lungs and pleura: Atelectasis versus small infiltrate at right lung base is seen with elevation of right hemidiaphragm. Left lung is clear. No pleural effusions or pneumothorax. Mediastinum: Mediastinal contours appear normal. Heart size is mildly enlarged. Bones and chest wall: No suspicious bony lesions. Overlying soft tissues appear unremarkable. IMPRESSION: Chronic elevation of right hemidiaphragm. Mild right basilar atelectasis versus small infiltrate. Clinical correlation and follow-up is recommended. No pleural effusion or pneumothorax. Dictated by: Aravind Luu M.D. on 11/04/2024 at 8:15 Approved by: Aravind Luu M.D. on 11/04/2024 at 8:15
--- NOTE | 2024-11-04 07:47 | EKG_ITS ---
[address] [address] Test Date: 2024-11-04 Pat Name: Bunny Castillo Department: Room: Gender: Male Pr Internship: BLANCA : 1955 Requested By: Order Number: [id number] Reading MD: Craig Castelan MD Measurements Intervals [place] Rate: 134 P: NC: QRS: -86 QRSD: 178 T: 36 QT: 386 QTc: 576 Interpretive Statements Atrial fibrillation with rapid ventricular response Left axis deviation Right bundle branch block Inferior infarct , age undetermined Anterior infarct , age undetermined Electronically Signed On 11-05-2024 7:54:17 PDT by Craig Castelan MD
[2024-11-04 07:55] LABS: Add Manual Diff / Slide Review NO; Hematocrit 47.0 % (41-53); Hemoglobin 16.0 g/dL (13.5-17.5); Lymphocytes Absolute Auto 3400 /uL (1100-4500); Mean Corpuscular HGB Conc 34.0 % (30-36); Mean Corpuscular Hemoglobin 32.2 PG (26-34); Mean Corpuscular Volume 94.7 fL (80-100); Platelet Count 284 X10^3/uL (150-400)
[2024-11-04] MEDS: ASPIRIN 81 MG CHEW TAB 324 MG PO (07:56)
[2024-11-04 08:02] LABS: INR 1.1 (0.9-1.3); Prothrombin Time 13.0 SECONDS (9.4-12.5)
[2024-11-04 08:05] LABS: PTT Partial Thromboplastin Tim 45 SECONDS (25.1-36.5)
[2024-11-04 08:07] LABS: Alanine Aminotransferase 19 IU/L (<50); Albumin 4.7 g/dL (3.5-5.0); Albumin Globulin Ratio 1.2 (1.0-2.8); Alkaline Phosphatase 77 U/L (38-126); Blood Urea Nitrogen 18 mg/dL (9-20); Calcium 8.9 mg/dL (8.4-10.2); Carbon Dioxide 26 mmol/L (22-32); Chloride 106 mmol/L (98-107); Creatine Kinase 86 U/L (55-170); Estimated Glomerular Filt Rate 60 mL/min (>60); Globulin 3.9 g/dL (1.7-4.1); Glucose 129 mg/dL (70-99); HEMOLYSIS < 15 (0-50); Lipase 125 U/L (23-300); Magnesium 2.2 mg/dL (1.6-2.3); Potassium 4.0 mmol/L (3.4-5.1); Sodium 142 mmol/L (137-145); Total Protein 8.6 g/dL (6.3-8.2)
[2024-11-04 08:18] LABS: NT-proBNP (BNP-Adult 18+) 2820 pg/mL (<125); Troponin I 0.051 ng/mL (0.01-0.034)
--- NOTE | 2024-11-04 10:52 | P.HP_ITS ---
History of Present Illness History of Present Illness Date Patient Seen: 11/04/24 Time Patient Seen: 12:00 Chief complaint: having an attack of some sort Narrative: The patient was a 69-year-old male with a history of chronic systolic heart failure, hypertension, PAF, and CKD. He also has a history of methamphetamine use. Continues to use this about twice a week. He presents today with palpitations and is found to be in atrial fibrillation with rapid response. He was not had recent orthopnea or leg edema. He did stop all medications 2-3 weeks ago because he felt better. He denies recent chest pain except for last evening he would right arm pain. He came to the ER for these symptoms and was found to be in rapid response and had a normal troponin. He also notes some numbness in the arms greater either right side of the left. No recent blood per rectum or melena. Last time he was in the hospital a sent to [place] and had a transesophageal echo and a attempted heart catheterization. ED course: A diltiazem drip was started for rate control. [facility] Medical History Atrial fibrillation with RVR Acute renal failure superimposed on chronic kidney disease Elevated troponin Anticoagulant prescribed at discharge Hypertension Congestive heart failure Cardiomyopathy Surgical History No significant past surgical history Family History Father Congestive heart failure Cancer Mother No pertinent past medical history Social History household members: significant other Smoking Status: Former smoker Tobacco: How many years used: 30 alcohol intake: never Meds Home Medications and Allergies Home Medications ?Medication ?Instructions ?Recorded ?Confirmed ?Type apixaban 5 mg tablet (Eliquis) 5 mg PO BID 12/23/21 History metoprolol succinate 25 mg 25 mg PO BID #60 tabs 12/2609/07/24 Rx tablet,extended release 24 hr amiodarone 200 mg tablet 200 mg PO DAILY 09/07/2411/25 History empagliflozin 10 mg tablet 10 mg PO DAILY 09/07/2411/25 History (Jardiance) sacubitril 49 mg-valsartan 51 mg 1 tab PO BID 09/07/24 09/07/24 History tablet (Entresto) torsemide 20 mg tablet 20 mg PO DAILY 09/07/2411/25 History Allergies Allergy/AdvReac Type Severity Reaction Status Date / Time No Known Drug Allergies Allergy Verified 11/04/24 07:48 Review of Systems Review of Systems Narrative: All else reviewed and otherwise unremarkable except as noted in the history and physical. Exam Vital Signs (past 8 hours): - 11/04/24 07:42 11/04/24 07:43 11/04/24 07:43 Temperature Pulse Rate 62 141 H Respiratory Rate 36 H Blood Pressure 121/100 H Pulse Oximetry Oxygen Delivery Method 11/04/24 07:47 11/04/24 08:08 Temperature 98.1 F Pulse Rate 139 H 145 H Respiratory Rate 26 H Blood Pressure 121/100 H 124/88 Pulse Oximetry 94 Oxygen Delivery Method Room Air Oxygen Delivery Method Room Air Narrative Exam Narrative: NAD, alert and oriented, fluent speech, calm. Normocephalic skull, EOMI, anicteric sclera, symmetric pupils. Oropharynx unremarkable, no droop. Neck supple, midline trachea, no adenopathy. Lungs clear, normal rate and effort. Heart irregular, no murmur gallop or rub. Abdomen is soft, non distended and non tender. Extremities are free of edema. Skin is free of rash or lesions. The bottom of the feet are unkempt and smelly. There are no open lesions. There is a lot of hyperkeratosis of skin on both feet. Joints are not swollen or deformed. Judgment appears to be normal. Objective ECG Impression: Rate: 134 P: MA: QRS: -86 QRSD: 178 T: 36 QT: 386 QTc: 576 Interpretive Statements Atrial fibrillation with rapid ventricular response Left axis deviation Right bundle branch block Inferior infarct , age undetermined Imaging Chest x-ray: Radiologist's impression: Chronic elevation of right hemidiaphragm. Mild right basilar atelectasis versus small infiltrate. Clinical correlation and follow-up is recommended. No pleural effusion or pneumothorax. Labs 11/04/24 07:48 11/04/24 07:48 Labs: Laboratory Results - last 24 hr 11/04/24 07:48 WBC 10.8 RBC 4.96 Hgb 16.0 Hct 47.0 MCV 94.7 MCH 32.2 MCHC 34.0 RDW 13.9 Plt Count 284 Neut % (Auto) 58.5 Lymph % (Auto) 31.3 [place] % (Auto) 8.1 Eos % (Auto) 1.4 L Baso % (Auto) 0.7 Neut # (Auto) 6300 Lymph # (Auto) 3400 [place] # (Auto) 900 Eos # (Auto) 100 Baso # (Auto) 100 PT 13.0 H INR 1.1 APTT 45 H Sodium 142 Potassium 4.0 Chloride 106 Carbon Dioxide 26 BUN 18 Creatinine 1.29 H Estimated GFR 60 BUN/Creatinine Ratio 14.0 Glucose 129 H Calcium 8.9 Magnesium 2.2 Total Bilirubin 1.0 AST 24 ALT 19 Alkaline Phosphatase 77 Total Creatine Kinase 86 Troponin I 0.051 H NT-Pro-B Natriuret Pep 2820 H Total Protein 8.6 H Albumin 4.7 Globulin 3.9 Albumin/Globulin Ratio 1.2 Lipase 125 Assessment & Plan Assessment & Plan narrative: 1. Medication noncompliance, present on admission and active. 2. Methamphetamine abuse, present on admission and active. 3. Atrial fibrillation with rapid response. Present on admission and active. 4. Chronic systolic heart failure and presumed non ischemic cardiomyopathy. Present on admission and stable. 5. Hypertension, present on admission stable. 6. PAF, on chronic anticoagulation but not compliant with medications. Active. Plan: -restart all last no medications including metoprolol and wean diltiazem drip as able. -serial troponins. -out of bed, advance activity. Anticipated need for hospitalization as 1 midnight, supports observation status. Full code. Time-Based Coding :: 35 min spent with patient and on the chart (including review of chart, obtaining history, exam, reviewing outside data, placing orders, documenting exam and treatment plan, and counseling patient) on 11/04. Quality MIPS - Admit I confirm the patient?s Advance Care Plan is present, Code status is documented, Surrogate decision maker is in patient?s record [If Yes, STOP here]: Yes MIPS - Meds 'Current medications' to include all prescriptions, [id number] products, herbals, cannabis/cannabidiol products, and vitamin/mineral/dietary (nutritional) supplements. I have utilized all available resources to obtain, update, or review the patient?s current medications. [If Yes, STOP here]: Yes
[2024-11-04] MEDS: APIXABAN 5 MG TABLET PO ×2 (11:45→21:57)
[2024-11-04] MEDS: METOPROLOL ER 25 MG TABLET PO (11:45)
[2024-11-04] MEDS: AMIODARONE 200 MG TABLET PO (11:45)
[2024-11-04] MEDS: TORSEMIDE 10 MG TABLET 20 MG PO (11:45)
[2024-11-04 12:45] LABS: MRSA (Nasal) PCR NOT DETECTED (Not Detect)
[2024-11-04] MEDS: METOPROLOL ER 25 MG TABLET 50 MG PO ×2 (17:43→21:56)
--- NOTE | 2024-11-04 19:51 | EKG_ITS ---
[place] [address] [place] [id number] Test Date: 2024-11-04 Pat Name: Bunny Castillo Department: [facility] Room: 229 Gender: Male Nurse Intern: : 1955 Requested By: Order Number: [id number] Reading MD: Craig Castelan MD Measurements Intervals [place] Rate: 94 P: [place]: QRS: 260 QRSD: 170 T: 36 QT: 428 QTc: 535 Interpretive Statements Atrial fibrillation Right bundle branch block Inferior infarct , age undetermined Anterior infarct , age undetermined NO SIGNIFICANT CHANGE FROM PRIOR TRACING Electronically Signed On 11-05-2024 7:55:38 PDT by Craig Castelan MD
[2024-11-04 20:26] LABS: Add Manual Diff / Slide Review NO; Hematocrit 44.7 % (41-53); Hemoglobin 15.2 g/dL (13.5-17.5); Lymphocytes Absolute Auto 2500 /uL (1100-4500); Mean Corpuscular HGB Conc 34.0 % (30-36); Mean Corpuscular Hemoglobin 32.0 PG (26-34); Mean Corpuscular Volume 94.3 fL (80-100); Platelet Count 274 X10^3/uL (150-400)
[2024-11-04 20:32] LABS: Blood Urea Nitrogen 18 mg/dL (9-20); Calcium 9.0 mg/dL (8.4-10.2); Carbon Dioxide 30 mmol/L (22-32); Chloride 102 mmol/L (98-107); Estimated Glomerular Filt Rate > 60 mL/min (>60); Glucose 124 mg/dL (70-99); HEMOLYSIS 18 (0-50); Potassium 4.3 mmol/L (3.4-5.1); Sodium 140 mmol/L (137-145)
[2024-11-04 20:46] LABS: Troponin I 29.300 ng/mL (0.01-0.034)
--- NOTE | 2024-11-04 22:15 | PC.NURSE ---
~194 HR 125-135, on assessment pt reports chest pain/pressure, radiating into arms, tingling in arms/legs. Pt pale, SOB, & diaphoretic. Diltiazem restarted (see mar), stat troponin/EKG ordered. Pt placed on @ L O2 NC. Symptoms relieved ~2014, HR now 110-120 Dr Tavarez made aware, and results reported @ 2039 (Trop of 29.300, up from 0.051 @ 0745), @2047 while Cory Shaikh RN was at bedside, pt had a 25 beat run of vtach, pt reported no symptoms whatsoever. Second IV site inserted and Trop redrawn for confirmation (resulted at 2140 at 35.000) Orders given for Diltiazem titration to maintain HR in the 80's & retake EKG after maintaining there for 1 hr, and trend trop Q4.
[2024-11-04 22:36] LABS: Troponin I 35.000 ng/mL (0.01-0.034)
[2024-11-05] VITALS (82 sets, daily range): BP systolic 67–193; BP diastolic 38–107; PULSE 41–124; RESP 18–45; TEMP 36.4–36.9; O2SAT 67–100
--- NOTE | 2024-11-05 05:27 | DI.RAD.S_ITS ---
PROCEDURE: XR CHEST 1V INDICATIONS: New Tachypenia/SOB TECHNIQUE: One view of the chest was acquired. COMPARISON: [facility], CR, XR CHEST 1V, 11/04/2024, 7:50. [facility], CR, XR CHEST 1V, 02/14/2022, 9:30. FINDINGS: Surgical changes and devices: None. Lungs and pleura: Stable right basilar atelectasis versus mild infiltrate.. Elevated right hemidiaphragm is redemonstrated. No pleural effusions or pneumothorax. Mediastinum: Mediastinal contours appear normal. Heart size is normal. Bones and chest wall: No suspicious bony lesions. Overlying soft tissues appear unremarkable. IMPRESSION: Redemonstration of elevation the right hemidiaphragm with mild right basilar atelectasis versus small infiltrate. Dictated by: Colten Cornelius M.D. on 11/05/2024 at 9:07 Approved by: Colten Cornelius M.D. on 11/05/2024 at 9:08
[2024-11-05 06:16] LABS: Add Manual Diff / Slide Review NO; Hematocrit 44.0 % (41-53); Hemoglobin 14.8 g/dL (13.5-17.5); Lymphocytes Absolute Auto 2500 /uL (1100-4500); Mean Corpuscular HGB Conc 33.7 % (30-36); Mean Corpuscular Hemoglobin 31.9 PG (26-34); Mean Corpuscular Volume 94.6 fL (80-100); Platelet Count 292 X10^3/uL (150-400)
[2024-11-05 06:24] LABS: Blood Urea Nitrogen 18 mg/dL (9-20); Calcium 8.9 mg/dL (8.4-10.2); Carbon Dioxide 26 mmol/L (22-32); Chloride 104 mmol/L (98-107); Estimated Glomerular Filt Rate > 60 mL/min (>60); Glucose 117 mg/dL (70-99); HEMOLYSIS 17 (0-50); Potassium 4.4 mmol/L (3.4-5.1); Sodium 137 mmol/L (137-145)
[2024-11-05 06:33] LABS: NT-proBNP (BNP-Adult 18+) 4730 pg/mL (<125)
[2024-11-05 06:37] LABS: Troponin I 48.500 ng/mL (0.01-0.034)
--- NOTE | 2024-11-05 06:46 | PM.EVENT ---
Event Note Event Note (Rapid Response, Code, or fall): Was notified by the patient's nurse that the patient's troponin was 29. Previously it was 0.04 and then increased to 0.05 and now 29. The patient is still in A-fib with RVR and on low-dose of diltiazem drip. The patient does not have active chest pain per her report. I did order a repeat troponin just to ensure that this is the correct value. Repeat troponin was 31. Will increase diltiazem drip as tolerated to improve heart rate as the heart rate is still in the 130s but on only 2 mg/h. Once heart rate is improved we will get an EKG to see if there is any changes in ST or T wave. Of note the patient does have a history of methamphetamine active use. The patient also is currently on Eliquis. Will add aspirin. Questionable if this is from demand ischemia due to A-fib with RVR. Will continue to trend troponin and monitor hemodynamics.
--- NOTE | 2024-11-05 07:10 | DI.ECHO.S_ITS ---
[facility]+ [facility] : : [address] : : [place] : : [id number] : : Phone: [phone] Echocardiogram Report + + :Name: KATHERINE ESPINOSA Study Date: 11/05/2024 Height: 70 in : :Hospital ReadingLocation: Weight: 242 lb : : Gender: Male BSA: 2.3 m2 : :: 1955 Age: 69 yrs BP: 126/78 mmHg: :Reason For Study: ATRIAL FIBRILLATION WITH RVR : :Ordering Physician: ALLI, : :SUSY Stinson Performed By: Anika Knapp : :Referring: SUSY CARSON : + + Interpretation Summary 1) Moderately to severely enlarged left ventricle with severely reduced systolic function (EF 10-15%). 2) Severe hypokinesis with akinesis of the apical cap. The interventricular septum is flattened, consistent with a right ventricular volume overload condition. 3) Moderately to severely enlarged right ventricle wtih moderately to severely reduced systolic function. 4) The left atrium is severely dilated 5) There is mild to moderate mitral regurgitation. 6) The right ventricular systolic pressure is estimated to be at least 43 mmHg based on an estimated right atrial pressure of 15 mm Hg. 7) Compared to the Echo done 12/24/2021, no significant change in cardiac function. Procedure: A two-dimensional transthoracic echocardiogram with color flow and Doppler was performed. The study quality was technically adequate. Comparison is made with the echocardiogram of 12/24/2021. The heart rate ranged between 72-93 bpm during the study. Left Ventricle: The left ventricle is moderate-severely dilated. There is mild concentric left ventricular hypertrophy. The estimated left ventricular end diastolic volume is 205 ml. Left ventricular end diastolic volume indexed to BSA of 90.82m./m2. Left ventricular systolic function is severely reduced. The ejection fraction is estimated to be 10-15%. Severe hypokinesis with akinesis of the apical cap. The interventricular septum is flattened, consistent with a right ventricular volume overload condition. Diastolic function could not be accurately assessed due to unobtainable data. Right Ventricle: The right ventricle is moderate to severely dilated. Right ventricular systolic function is moderate to severely reduced. Atria: The left atrium is severely dilated. The right atrium is severely dilated. There is no Doppler evidence for an interatrial shunt. Mitral Valve: The mitral valve leaflets appear moderately thickened, but open well. There is mild to moderate mitral regurgitation. Aortic Valve: The aortic valve is trileaflet. The aortic valve is mildly calcified. There is no aortic valve stenosis. No aortic regurgitation is present. Tricuspid Valve: The tricuspid valve leaflets are thin and pliable. The right ventricular systolic pressure is estimated to be at least 43 mmHg based on an estimated right atrial pressure of 15 mm Hg. There is mild tricuspid regurgitation. Pulmonic Valve: The pulmonic valve is not well seen, but is grossly normal. There is no pulmonic valvular regurgitation. Great Vessels: The aortic root is normal size. The dimensions of the ascending aorta are normal. The IVC is dilated (diameter is greater than 2.1 cm) and it collapses less than 50% with a sniff. This suggests a high right atrial pressure of 15 mm Hg. Pericardium/ Pleura There is no pericardial effusion. There is no pleural effusion. MMode/2D Measurements & Calculations LVIDd: 6.5 cm LVOT diam: 2.5 cm LVIDs: 5.8 cm Ao root diam: 3.6 cm FS: 10.7 % asc Aorta Diam: 3.6 cm IVSd: 1.2 cm Ao Arch Diam (Prox Trans): 3.6 cm LVPWd: 1.00 cm LV reddy. diameter/BSA (cm/m^2): 2.9 LV sys. diameter/BSA (cm/m^2): 2.6 LA A2 area: 31.2 cm2 RA long axis: 6.2 cm LA A4 area: 35.4 cm2 RA area: 29.6 cm2 LA length (vol): 7.5 cm RA vol: 119.9 ml LA vol: 124.3 ml RA : 53.0 ml/m2 LA vol index: 54.9 ml/m2 IVC diam: 2.2 cm RVD1 (basal): 5.9 cm RVD2 (mid): 4.7 cm TAPSE: 1.3 cm Doppler Measurements & Calculations Ao V2 max: 119.8 cm/sec LVOT Max Sebastian: 56.4 cm/sec Ao V2 mean: 88.0 cm/sec LV V1 max P.3 mmHg Ao max P.9 mmHg LV V1 VTI: 7.9 cm Ao mean P.4 mmHg FERCHO(I,D): 2.1 cm2 Ao V2 VTI: 18.0 cm FERCHO(V,D): 2.2 cm2 sev ratio: 0.44 FERCHO indexed to BSA (cm^2/m^2): 0.92 MV E max sebastian: 64.1 cm/sec TR max sebastian: 264.8 cm/sec Med Peak E' Sebastian: 4.8 cm/sec TR max P.0 mmHg E/E' med: 13.3 PA pr(Accel): 41.7 mmHg Lat Peak E' Sebastian: 13.5 cm/sec E/E' lat: 4.8 E/e' average: 9.0 MV dec time: 0.17 sec SV(LVOT): 37.7 ml Reading Physician:10:55 AM
--- NOTE | 2024-11-05 07:11 | P.PN_ITS ---
Subjective Subjective Date Patient Seen: 11/05/24 Interval history: I have seen him multiple times today. He remains quite unstable. Overnight he had a 25 beat run of V-tach which has not recurred. He has been on, then off, then back on the diltiazem drip for rate control with his atrial fibrillation. When the ventricular tachycardia occurred he was off of it. The troponins are very high, peaking at 48, then back down to 44 consistent with a non ST elevation [place]. later in the morning he experienced a period of hypotension with systolic down to the 80s which was treated with 500 mL of normal saline bolus. His EKGs continued to show right bundle branch block and T-wave inversion in V1 through V 3. His ejection fraction is 10%. He is already on apixaban but per Cardiology will be changed to IV heparin for 48 hours. The dilemma with him is his ongoing methamphetamine use, his lack of Cardiology follow-up and his apparent difficult access for interventions. We do not have the actual reports but he tells us that he was attempted to be accessed through both wrists and through both groins and eventually there was an access obtained through the right neck but he was unable to undergo full evaluation and was to have returned to [facility]. This was all discussed this morning with Dr. Farrell our on-call insurance analyst who recommended that he be started on heparin and discussed further with [facility] Cardiology where he normally attends and could possibly be transferred. It will apparently be very challenging to access his vascular system for another heart catheterization? The records from 2021 are reviewed when he had similar episodes of V-tach treated with Milrinone and amiodarone and was eventually transferred to [facility]. Exam Vital Signs (past 8 hours): - 11/05/24 00:00 11/05/24 00:00 11/05/24 01:00 Pulse Rate 104 H 110 H Respiratory Rate 20 22 Blood Pressure 123/81 118/83 Pulse Oximetry 97 98 Oxygen Delivery Method Nasal Cannula Oxygen Flow Rate 2 2 11/05/24 02:00 11/05/24 03:00 11/05/24 04:00 Pulse Rate 85 87 80 Respiratory Rate 20 22 26 H Blood Pressure 129/75 103/77 86/58 L Pulse Oximetry 99 97 98 Oxygen Delivery Method Oxygen Flow Rate 2 2 2 11/05/24 04:30 11/05/24 05:00 11/05/24 05:00 Pulse Rate 97 H 99 H Respiratory Rate 32 H 24 Blood Pressure 100/73 100/74 Pulse Oximetry 94 98 Oxygen Delivery Method Nasal Cannula Oxygen Flow Rate 2 2 11/05/24 05:30 11/05/24 06:00 Pulse Rate 103 H 116 H Respiratory Rate 22 22 Blood Pressure 118/89 113/87 Pulse Oximetry 94 95 Oxygen Delivery Method Oxygen Flow Rate 2 2 Oxygen Delivery Method Nasal Cannula Oxygen Flow Rate 2 Narrative Exam Narrative: Alert and oriented x3. No apparent distress. Heart is irregularly irregular without murmur Lungs are clear to auscultation bilaterally Extremities have no ankle edema Objective Labs 11/05/24 05:35 11/05/24 05:35 Labs: Laboratory Results - last 24 hr 11/04/24 11/04/24 11/04/24 07:48 10:50 20:10 WBC 10.8 9.6 RBC 4.96 4.74 Hgb 16.0 15.2 Hct 47.0 44.7 MCV 94.7 94.3 MCH 32.2 32.0 MCHC 34.0 34.0 RDW 13.9 13.7 Plt Count 284 274 Neut % (Auto) 58.5 62.9 Lymph % (Auto) 31.3 25.9 Barrow % (Auto) 8.1 9.1 Eos % (Auto) 1.4 L 1.1 L Baso % (Auto) 0.7 1.0 Neut # (Auto) 6300 6100 Lymph # (Auto) 3400 2500 Barrow # (Auto) 900 900 Eos # (Auto) 100 100 Baso # (Auto) 100 100 PT 13.0 H INR 1.1 APTT 45 H Sodium 142 140 Potassium 4.0 4.3 Chloride 106 102 Carbon Dioxide 26 30 BUN 18 18 Creatinine 1.29 H 1.16 Estimated GFR 60 > 60 BUN/Creatinine Ratio 14.0 15.5 Glucose 129 H 124 H Calcium 8.9 9.0 Magnesium 2.2 Total Bilirubin 1.0 AST 24 ALT 19 Alkaline Phosphatase 77 Total Creatine Kinase 86 Troponin I 0.051 H NT-Pro-B Natriuret Pep 2820 H Total Protein 8.6 H Albumin 4.7 Globulin 3.9 Albumin/Globulin Ratio 1.2 Lipase 125 Nasal Screen MRSA (PCR) Not detected 11/04/24 11/04/24 11/05/24 20:41 21:40 05:35 WBC 12.2 H RBC 4.65 Hgb 14.8 Hct 44.0 MCV 94.6 MCH 31.9 MCHC 33.7 RDW 13.8 Plt Count 292 Neut % (Auto) 68.3 Lymph % (Auto) 20.3 L Barrow % (Auto) 10.3 Eos % (Auto) 0.6 L Baso % (Auto) 0.5 Neut # (Auto) 8300 H Lymph # (Auto) 2500 Barrow # (Auto) 1200 H Eos # (Auto) 100 Baso # (Auto) 100 PT INR APTT Sodium 137 Potassium 4.4 Chloride 104 Carbon Dioxide 26 BUN 18 Creatinine 0.99 Estimated GFR > 60 BUN/Creatinine Ratio 18.2 Glucose 117 H Calcium 8.9 Magnesium Total Bilirubin AST ALT Alkaline Phosphatase Total Creatine Kinase Troponin I 29.300 H* 35.000 H* 48.500 H* NT-Pro-B Natriuret Pep 4730 H Total Protein Albumin Globulin Albumin/Globulin Ratio Lipase Nasal Screen MRSA (PCR) [facility] Medical History Atrial fibrillation with RVR Acute renal failure superimposed on chronic kidney disease Elevated troponin Anticoagulant prescribed at discharge Hypertension Congestive heart failure Cardiomyopathy Surgical History No significant past surgical history Family History Father Congestive heart failure Cancer Mother No pertinent past medical history Social History household members: significant other Smoking Status: Former smoker Tobacco: How many years used: 30 alcohol intake: never Assessment & Plan Assessment & Plan narrative: 1. NSTEMI, present on admission, active 2. Methamphetamine abuse, present on admission and active. 3. Atrial fibrillation with rapid response. Present on admission and active. 4. Chronic systolic heart failure and presumed non ischemic cardiomyopathy. Present on admission and stable. 5. Hypertension, present on admission stable. 6. PAF, on chronic anticoagulation but not compliant with medications. Active. 7. Medication noncompliance, present on admission and active. Plan: -per discussion with Dr. Farrell begin on IV heparin, stop apixaban for now. Discuss further with his Cardiology group in [place]. -EF has dropped from 15 to 10% -Continue Metoprolol and wean diltiazem drip as able. -serial troponins. 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 He wishes to remain a full code. He is high risk here but would be high-risk at any location again given the access challenges. Full code. Time-Based Coding :: [TOTAL MINUTES] spent with patient and on the chart (including review of chart, obtaining history, exam, reviewing outside data, placing orders, documenting exam and treatment plan, and counseling patient) on [DATE]. Quality VTE Deep Vein Thrombosis/Pulmonary Embolism Present on Admission: No
[2024-11-05] MEDS: ASPIRIN EC 81 MG TABLET PO (08:00)
[2024-11-05] MEDS: METOPROLOL ER 25 MG TABLET 50 MG PO ×2 (08:00→21:05)
[2024-11-05] MEDS: TORSEMIDE 10 MG TABLET 20 MG PO (08:00)
[2024-11-05] MEDS: AMIODARONE 200 MG TABLET PO (08:00)
[2024-11-05] MEDS: APIXABAN 5 MG TABLET PO (08:00)
[2024-11-05 08:51] LABS: Magnesium 2.0 mg/dL (1.6-2.3)
[2024-11-05] MEDS: SODIUM CHLORIDE 0.9% 500 ML 1000 ML IV (09:39)
[2024-11-05 10:54] LABS: Troponin I 44.400 ng/mL (0.01-0.034)
--- NOTE | 2024-11-05 10:59 | PC.NURSE ---
Addendum entered by Afia Baltazar R.N. 11/05/24 17:17: New orders for Dobutamine gtt placed, 3rd IV placed for access due to compatibility of current gtts. BP 109/62 (79) HR 93 Dilt gtt remains paused. STAT ABG for SOB and altered mental status. Care on going Addendum entered by Afia Baltazar R.N. 11/05/24 15:43: 1531 BP 85/38 MAP 55 HR 90, Dilt gtt paused, Dr Vargas notified no new orders at this time, care ongoing Addendum entered by Afia Baltazar R.N. 11/05/24 14:33: Pt removed IV placed last night. Pt states that he doesn't remember removing it while sitting in the chair. Pt assisted back to bed and new IV placed, pt requesting xanax for anxiety, reported to Dr Vargas who changed pt from Ativan and to xanax. No further needs at this time, care ongoing. Addendum entered by Afia Baltazar R.N. 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 Will continue with plan to anticoagulate pt with Heparin gtt for 48 hrs. Pt requests to leave A, this nurse and Dr Vargas at bedside, explained the importance of remaining here on Heparin and Diltiazem gtt for 48 hrs, pt agrees. No further needs at this time, care ongoing. Original Note: Dayshift note: Report received from MICHAEL Avendaño. Pt had eventful night with 25 beat run of Vtach and impulsive jumping out of bed to go to the bathroom. Pt placed back on dilt gtt for HR above 110, see emar for titration. During pt multiple runs to bathroom, pt was incontinent of urine, requiring several bedding changes and floor mopping. This behavior has continued during dayshift. Dilt gtt was pased at 0828 for BP below MAP of 65. Dr Vargas at bedside orders for Magnesium level, ECHO, and 500 ML bolus. Mag level 2.0, ECHO completed and bolus infused. Repeat BP 129/72. Dr Vargas waiting on the results of ECHO for further decisions. Code status discussed with pt by Dr Vargas, pt wishes to remain Full code.
[2024-11-05] MEDS: HEPARIN 5,000 UNIT/ML VIAL 3000 UNIT IV (11:45)
[2024-11-05] MEDS: HEPARIN DRIP 25,000 UNIT/500 ML IV.SOLN 20.02 UNIT IV (11:46)
--- NOTE | 2024-11-05 13:35 | CM.DANOTE ---
DCP Assessment note pt is a 69yo M admitted with afib with RVR/recent meth use. rising tropes during first 24hrs of admission. attempting transfer to location with on site cardiology PCP Vanesa Valle. Payer [employer] M[employer] advantage vs self pay CLIENT TECHNICAL SUPPORT ASSOCIATE reviewed EMR per chart review, hx of admission in 2021, also transferred for cardiac concerns. per provider, [facility] historically attmpted heart cath, it was unsuccessful. EF of 15%. new echo pending. per chart review/RN, critical tropes rising. remains full code. pt had period of time wanting to leave AMA, but after talking to provider again decided to stay. Per chart pt lives with partner in [place]. indep in room, this CLIENT TECHNICAL SUPPORT ASSOCIATE saw pt ambulating around. P: attempting transfer, if unable to secure transfer, remain here on high IV heprin drip. CM team will continue to follow closely in case any DCP needs arise during pt's admission BELL Jc Discharge Planning/Care Management Advanced directive, confirm from FAMILY Start: 11/04/24 11:10 Freq: Q24H Status: Complete Protocol: Document 11/04/24 11:10 MS (Rec: 11/04/24 11:33 MS [id number]) Advance Directive, confirm on record Time 11:33 Person contacted patient Copy received No Document 11/05/24 11:10 MS (Rec: 11/05/24 12:27 MS [id number]) Advance Directive, confirm on record Time 11:33 Person contacted patient Copy received No Time 12:27 Copy received No Advanced directive No available on record CM Discharge Assessment Start: 11/04/24 11:01 Freq: Status: Active Protocol: Document 11/05/24 13:32 SL (Rec: 11/05/24 13:34 SL Desktop) Discharge Planning Assessment Assigned Discharge BELL [place] [employer] Screwhead DPOA/Assigned [place], partner Designee Name Contact Information [phone] Advance Directives? No Advance Directives No on File History Provided By Patient,Medical Record Prior Living House Arrangements Household Members significant other Independent with ADL Yes 's Is patient alert and Yes oriented? Comment Transfer Discharge Plan Transfer to Higher Level of Care Transportation medical transport Arrangement Additional Comment r/o HH Review Status In Process Please Provide Date 11/05/24 Initial DC Assessment Was Performed Next Review Type Continued Stay Review
--- NOTE | 2024-11-05 16:15 | DI.RAD.S_ITS ---
PROCEDURE: XR CHEST 1V INDICATIONS: SOB TECHNIQUE: One view of the chest was acquired. COMPARISON: [facility], CR, XR CHEST 1V, 11/05/2024, 5:49. [facility], CR, XR CHEST 1V, 11/04/2024, 7:50. FINDINGS AND IMPRESSION: Mixed density consolidation and probable effusion in the right lower lung. This is increased from earlier radiograph. Right hemidiaphragm eventration also present. Consider future imaging surveillance to assess for resolution. Cardiomegaly. Degenerative osseous changes. Dictated by: Hudson Siddiqui M.D. on 11/05/2024 at 15:51 Approved by: Hudson Siddiqui M.D. on 11/05/2024 at 15:52
[2024-11-05] MEDS: DOBUTAMINE 250 MG IN D5W 250 MG/250 ML IV.SOLN 16.5 MG IV (16:53)
[2024-11-05 17:38] LABS: Allen Test for ABG Passed? Positive; Blood Gas Collection Site Right Radial; HCO3 ABG 26 mmol/L (23-27); Oxygen Saturation ABG 84 % (95-100); PCO2 ABG 40.9 mmHg (35-45); PO2 ABG 48 mmHg (80-100); TCO2 ABG 25 mmol/L (23-27)
[2024-11-05] MEDS: FUROSEMIDE 20 MG/2 ML VIAL 10 MG IV (17:59)
[2024-11-05 18:17] LABS: PTT Partial Thromboplastin Tim 97 SECONDS (25.1-36.5)
[2024-11-05] MEDS: METOPROLOL TARTRATE 5 MG/5 ML INJ IV (18:17)
[2024-11-05 18:40] LABS: Troponin I 46.500 ng/mL (0.01-0.034)
[2024-11-05] MEDS: VASOPRESSIN 40 UNIT in SODIUM CHLORIDE 0.9% 100 ML 4.5 UNIT IV (19:12)
[2024-11-05] MEDS: DIGOXIN 500 MCG/2 ML AMPUL 250 MCG IV (19:13)
--- NOTE | 2024-11-05 21:04 | P.TELICUCN_ITS ---
History of Present Illness Consult details IF CAMERA ACTIVATED, patient seen via real-time interactive audiovisual communication: Camera activated Chief complaint: having an attack of some sort Consent obtained for tele-commercial accountant care: Yes Patient Location: ICU Provider location (State): [place] Other participants/roles: None Narrative: 69 yo M admitted w/ rapid atrial fibrillation, medication noncompliance and chronic HFrEF (LVEF 10%) due to nonischemic cardiomyopathy. He also continues to abuse methamphetamine. He was originally started on a diltiazem infusion in the ED for rate control pending transfer to an outside facility. He then became hypotensive and was started on dobutamine infusion; this has been switched to vasopressin/digoxin as per recommendations. [facility] Medical History Atrial fibrillation with RVR Acute renal failure superimposed on chronic kidney disease Elevated troponin Anticoagulant prescribed at discharge Hypertension Congestive heart failure Cardiomyopathy Surgical History No significant past surgical history Family History Father Congestive heart failure Cancer Mother No pertinent past medical history Social History household members: significant other Smoking Status: Former smoker Tobacco: How many years used: 30 alcohol intake: never Current Medications Current Medications Medications: Home Medications apixaban 5 mg tablet (Eliquis) 5 mg PO BID 12/23/21 [History Confirmed 11/04/24] metoprolol succinate 25 mg tablet,extended release 24 hr 25 mg PO BID #60 tabs 12/26/21 [Rx Confirmed 11/04/24] amiodarone 200 mg tablet 200 mg PO DAILY 09/07/24 [History Confirmed 11/04/24] empagliflozin 10 mg tablet (Jardiance) 10 mg PO DAILY 09/07/24 [History Confirmed 11/04/24] sacubitril 49 mg-valsartan 51 mg tablet (Entresto) 1 tab PO BID 09/07/24 [History Confirmed 11/04/24] torsemide 20 mg tablet 20 mg PO DAILY 09/07/24 [History Confirmed 11/04/24] Visit Medications (administered) Generic Name Dose Route Start Last Admin Trade Name Freq PRN Reason Stop Dose Admin Alprazolam 0.5 mg 11/05/24 14:03 11/05/24 14:16 Alprazolam 0.25 Mg Tablet PO 0.5 mg Q6H PRN Administration Anxiety Amiodarone HCl 200 mg 11/04/24 11:00 11/05/24 08:00 Amiodarone 200 Mg Tablet PO 200 mg DAILY MARLEEN Administration Aspirin 81 mg 11/05/24 06:50 11/05/24 10:45 Aspirin Ec 81 Mg Tablet PO Not Given DAILY MARLEEN Digoxin 250 mcg 11/05/24 18:45 11/05/24 19:13 Digoxin 500 Mcg/2 Ml Ampul IV 11/06/24 00:46 250 mcg Q6H MARLEEN Administration Diltiazem HCl 125 mg/ Sodium 125 mls @ 5 mls/hr 11/04/24 08:00 11/05/24 15:38 Chloride IV 0 mg/hr TITRATE MARLEEN 0 mls/hr Protocol Titration 5 MG/HR Heparin Sodium/Dextrose 25,000 unit in 500 mls @ 26.4 mls/hr 11/05/24 11:15 11/05/24 19:24 Heparin Drip IV 7.1 units/kg/hr CONT MARLEEN 15.62 mls/hr Protocol Titration 12 UNITS/KG/HR Dobutamine HCl/Dextrose 250 mg in 250 mls @ 16.5 mls/hr 11/05/24 16:30 11/05/24 19:16 Dobutamine 250 Mg In D5w IV 0 mcg/kg/min TITRATE MARLEEN 0 mls/hr Protocol Titration 2.5 MCG/KG/MIN Vasopressin 40 unit/ Sodium 102 mls @ 4.5 mls/hr 11/05/24 18:38 11/05/24 19:12 Chloride IV 4.5 mls/hr CONT MARLEEN Administration Metoprolol Succinate 50 mg 11/04/24 17:30 11/05/24 08:00 Metoprolol Er 25 Mg Tablet PO 50 mg BID MARLEEN Administration Non-Formulary Medication 10 mg 11/04/24 11:00 11/05/24 08:03 Empagliflozin [Jardiance] PO Not Given DAILY [facility] Non-Formulary Medication 1 tab 11/04/24 11:00 11/05/24 20:56 Sacubitril-Valsartan [Entresto] PO Not Given BID MARLEEN Sodium Chloride 10 ml 11/04/24 21:00 11/05/24 08:46 Sodium Chloride 0.9% Flush IV Not Given BID MARLEEN Torsemide 20 mg 11/04/24 11:00 11/05/24 08:00 Torsemide 10 Mg Tablet PO 20 mg DAILY MARLEEN Administration Exam Vital Signs (past 8 hours): - 11/05/24 13:29 11/05/24 13:38 11/05/24 14:00 Temperature Pulse Rate 97 H Respiratory Rate 25 H Blood Pressure 105/66 87/55 L 114/82 Pulse Oximetry 97 Oxygen Delivery Method Oxygen Flow Rate 0 11/05/24 14:05 11/05/24 14:56 11/05/24 15:00 Temperature Pulse Rate Respiratory Rate Blood Pressure 114/82 101/67 Pulse Oximetry Oxygen Delivery Method Oxygen Flow Rate 2 11/05/24 15:33 11/05/24 15:39 11/05/24 16:00 Temperature 98.5 F Pulse Rate 90 56 L Respiratory Rate 27 H 19 Blood Pressure 85/38 L 85/38 L 84/56 L Pulse Oximetry 95 96 Oxygen Delivery Method Oxygen Flow Rate 0 2 11/05/24 16:01 11/05/24 16:12 11/05/24 16:14 Temperature Pulse Rate 42 L Respiratory Rate Blood Pressure 84/56 L Pulse Oximetry 96 94 Oxygen Delivery Method Oxygen Flow Rate 11/05/24 16:31 11/05/24 17:00 11/05/24 17:01 Temperature Pulse Rate Respiratory Rate Blood Pressure 102/66 109/62 Pulse Oximetry Oxygen Delivery Method Nasal Cannula Oxygen Flow Rate 11/05/24 17:30 11/05/24 17:39 11/05/24 17:39 Temperature Pulse Rate 49 L Respiratory Rate Blood Pressure 103/62 Pulse Oximetry 81 L 100 Oxygen Delivery Method Oxygen Flow Rate 11/05/24 18:00 11/05/24 18:00 11/05/24 18:31 Temperature Pulse Rate 105 H Respiratory Rate Blood Pressure 120/75 93/52 L Pulse Oximetry 95 Oxygen Delivery Method Oxygen Flow Rate 11/05/24 18:31 11/05/24 19:01 11/05/24 19:01 Temperature Pulse Rate 103 H 101 H Respiratory Rate Blood Pressure 110/67 Pulse Oximetry 91 93 Oxygen Delivery Method Oxygen Flow Rate 11/05/24 19:20 11/05/24 19:30 11/05/24 19:30 Temperature Pulse Rate 99 H 105 H Respiratory Rate Blood Pressure 125/67 Pulse Oximetry 95 92 Oxygen Delivery Method Oxygen Flow Rate 11/05/24 20:00 11/05/24 20:00 11/05/24 20:01 Temperature 97.9 F Pulse Rate 114 H Respiratory Rate Blood Pressure 93/67 Pulse Oximetry 95 Oxygen Delivery Method Oxygen Flow Rate 11/05/24 20:01 11/05/24 20:21 Temperature Pulse Rate 121 H Respiratory Rate Blood Pressure Pulse Oximetry 93 Oxygen Delivery Method Nasal Cannula Oxygen Flow Rate Oxygen Delivery Method Nasal Cannula Oxygen Flow Rate 2 Const General: cooperative and disheveled Resp Effort & Inspection: normal respiratory effort (on RA) Neuro General: patient alert, patient awake and patient oriented x3 Objective Labs 11/05/24 05:35 11/05/24 05:35 Labs: Laboratory Results - last 24 hr 11/04/24 11/04/24 11/05/24 20:41 21:40 05:35 WBC 12.2 H RBC 4.65 Hgb 14.8 Hct 44.0 MCV 94.6 MCH 31.9 MCHC 33.7 RDW 13.8 Plt Count 292 Neut % (Auto) 68.3 Lymph % (Auto) 20.3 L [place] % (Auto) 10.3 Eos % (Auto) 0.6 L Baso % (Auto) 0.5 Neut # (Auto) 8300 H Lymph # (Auto) 2500 [place] # (Auto) 1200 H Eos # (Auto) 100 Baso # (Auto) 100 APTT ABG Sample Site ABG pH ABG pCO2 ABG pO2 ABG HCO3 ABG Total CO2 ABG O2 Saturation ABG Base Excess Anirudh Test FiO2 % Sodium 137 Potassium 4.4 Chloride 104 Carbon Dioxide 26 BUN 18 Creatinine 0.99 Estimated GFR > 60 BUN/Creatinine Ratio 18.2 Glucose 117 H Calcium 8.9 Magnesium 2.0 Troponin I 29.300 H* 35.000 H* 48.500 H* NT-Pro-B Natriuret Pep 4730 H 11/05/24 11/05/24 11/05/24 10:04 17:34 18:00 WBC RBC Hgb Hct MCV MCH MCHC RDW Plt Count Neut % (Auto) Lymph % (Auto) [place] % (Auto) Eos % (Auto) Baso % (Auto) Neut # (Auto) Lymph # (Auto) [place] # (Auto) Eos # (Auto) Baso # (Auto) APTT 97 H* D ABG Sample Site Right radial ABG pH 7.42 ABG pCO2 40.9 ABG pO2 48 L* ABG HCO3 26 ABG Total CO2 25 ABG O2 Saturation 84 L* ABG Base Excess 1.5 Anirudh Test Positive FiO2 % 28.0 % Sodium Potassium Chloride Carbon Dioxide BUN Creatinine Estimated GFR BUN/Creatinine Ratio Glucose Calcium Magnesium Troponin I 44.400 H* 46.500 H* NT-Pro-B Natriuret Pep Assessment & Plan Assessment and plan (1) Atrial fibrillation with rapid ventricular response: Status: Acute Plan: -Continue digoxin -Continue heparin gtt (2) CHF (congestive heart failure): Qualifiers: Heart failure chronicity: acute on chronic Heart failure type: systolic Qualified Code(s): I50.23 - Acute on chronic systolic (congestive) heart failure Status: Acute Plan: -Hold Entresto -Continue vasopressin -Continue metoprolol but decrease the currently ordered dose by 50% -Continue empagliflozin -Continue amiodarone for VT history -Continue ASA -Continue torsemide (3) NSTEMI (non-ST elevated myocardial infarction): Status: Acute Plan: Probably type 2 and due to problems 1/2 (4) Methamphetamine abuse: Status: Acute Plan: -Cessation counseling Plan I spent a total of 35 minutes of aggregate critical care time today on this patient's care today exclusive of procedural time.
[2024-11-05] MEDS: SODIUM CHLORIDE 0.9% FLUSH 10 ML IV (21:06)
--- NOTE | 2024-11-05 22:38 | PC.NURSE ---
Pt. is adamant on leaving AMA despite educating him that he could drop if he leaves the hospital. I inform the pt. that he had a heart attack and that he is to sick to go home. Pt. insisted stating it is his right and wants to be DNR. Pt. is alert and oriented. Charge nurse notified, Dr. Lopez and Dr. Tavarez notifiied. Both MD stated that since pt. is alert and oriented and able to make decision on his own and he may leave AMA. Also got an order for DNR in case pt. decided to stay. I also called Alexandria, the pt's significant other and she states that pt. cannot leave and that they live in an RV along with pt's daughter. Alexandria stated that she is driving her way to the hospital but may take about 2 hrs. Pt. currently seems to settle down and will continue with treatment at this time.
[2024-11-06] VITALS (57 sets, daily range): BP systolic 87–160; BP diastolic 56–95; PULSE 79–122; RESP 15–49; TEMP 36.8; O2SAT 89–97
[2024-11-06 00:39] LABS: PTT Partial Thromboplastin Tim 79 SECONDS (25.1-36.5)
[2024-11-06] MEDS: DIGOXIN 500 MCG/2 ML AMPUL 250 MCG IV ×2 (00:52→14:48)
[2024-11-06 02:28] LABS: Troponin I 32.100 ng/mL (0.01-0.034)
[2024-11-06 07:06] LABS: Add Manual Diff / Slide Review NO; Hematocrit 40.9 % (41-53); Hemoglobin 14.0 g/dL (13.5-17.5); Lymphocytes Absolute Auto 2600 /uL (1100-4500); Mean Corpuscular HGB Conc 34.3 % (30-36); Mean Corpuscular Hemoglobin 32.4 PG (26-34); Mean Corpuscular Volume 94.4 fL (80-100); Platelet Count 263 X10^3/uL (150-400)
[2024-11-06 07:15] LABS: Blood Urea Nitrogen 22 mg/dL (9-20); Calcium 8.4 mg/dL (8.4-10.2); Carbon Dioxide 26 mmol/L (22-32); Chloride 104 mmol/L (98-107); Estimated Glomerular Filt Rate > 60 mL/min (>60); Glucose 141 mg/dL (70-99); Sodium 136 mmol/L (137-145)
[2024-11-06 07:17] LABS: HEMOLYSIS 162 (0-50); PTT Partial Thromboplastin Tim 56 SECONDS (25.1-36.5)
[2024-11-06 07:19] LABS: Potassium 5.0 mmol/L (3.4-5.1)
--- NOTE | 2024-11-06 07:26 | P.PN_ITS ---
Subjective Subjective Date Patient Seen: 11/06/24 Interval history: He seems to have stabilized quite well overnight on the vasopressin infusion and the digoxin loading. We will check a dig level today and continue him on a daily dose. His shortness of breath appears to be slightly improved. He also remains on IV heparin. The tele track moving machine operator is following him to assist with ICU level care. He told me yesterday that he wished to be full code but later in the evening as his condition became more serious he changed to DNR. Exam Vital Signs (past 8 hours): - 11/05/24 23:30 11/05/24 23:31 11/05/24 23:31 Pulse Rate 113 H 109 H Respiratory Rate 44 H 44 H Blood Pressure 148/75 H Pulse Oximetry 95 95 Oxygen Delivery Method Oxygen Flow Rate 11/06/24 00:00 11/06/24 00:00 11/06/24 00:01 Pulse Rate 111 H 117 H Respiratory Rate 18 Blood Pressure 138/86 138/86 Pulse Oximetry 92 92 Oxygen Delivery Method Oxygen Flow Rate 11/06/24 00:01 11/06/24 00:30 11/06/24 00:31 Pulse Rate 117 H 108 H 113 H Respiratory Rate 42 H 34 H 33 H Blood Pressure Pulse Oximetry 92 93 90 L Oxygen Delivery Method Oxygen Flow Rate 11/06/24 00:31 11/06/24 01:00 11/06/24 01:00 Pulse Rate 122 H Respiratory Rate 41 H Blood Pressure 141/77 H Pulse Oximetry 96 Oxygen Delivery Method Nasal Cannula Oxygen Flow Rate 11/06/24 01:00 11/06/24 01:04 11/06/24 01:04 Pulse Rate 111 H 111 H Respiratory Rate 37 H Blood Pressure 138/88 138/88 Pulse Oximetry 94 94 Oxygen Delivery Method Oxygen Flow Rate 11/06/24 01:30 11/06/24 02:00 11/06/24 02:30 Pulse Rate 103 H 101 H 108 H Respiratory Rate 29 H 40 H 32 H Blood Pressure Pulse Oximetry 92 94 92 Oxygen Delivery Method Oxygen Flow Rate 11/06/24 03:00 11/06/24 03:30 11/06/24 04:00 Pulse Rate 103 H 113 H 105 H Respiratory Rate 29 H 49 H 47 H Blood Pressure Pulse Oximetry 92 92 93 Oxygen Delivery Method Oxygen Flow Rate 11/06/24 04:30 11/06/24 04:55 11/06/24 05:00 Pulse Rate 104 H 106 H Respiratory Rate 36 H 42 H Blood Pressure Pulse Oximetry 91 94 Oxygen Delivery Method Nasal Cannula Oxygen Flow Rate 11/06/24 05:20 11/06/24 05:20 11/06/24 05:25 Pulse Rate 111 H 111 H Respiratory Rate 42 H 42 H Blood Pressure 130/92 H 130/92 H Pulse Oximetry 89 L 95 Oxygen Delivery Method Oxygen Flow Rate 2 11/06/24 05:30 11/06/24 06:00 11/06/24 06:03 Pulse Rate 115 H 102 H Respiratory Rate 49 H 28 H Blood Pressure 87/67 L Pulse Oximetry 92 95 Oxygen Delivery Method Oxygen Flow Rate 11/06/24 06:03 11/06/24 06:05 11/06/24 06:05 Pulse Rate 102 H 102 H Respiratory Rate 35 H 33 H Blood Pressure 100/81 Pulse Oximetry 95 93 Oxygen Delivery Method Oxygen Flow Rate 11/06/24 06:05 11/06/24 07:00 Pulse Rate 102 H 100 H Respiratory Rate 33 H 15 Blood Pressure 100/81 90/63 Pulse Oximetry 93 94 Oxygen Delivery Method Oxygen Flow Rate 2 2 Oxygen Delivery Method Nasal Cannula Oxygen Flow Rate 2 Narrative Exam Narrative: Alert and oriented x3. States he still feels like so many things hurt. Heart is irregularly tachycardic without murmur Lungs are clear to auscultation bilaterally and pacing it has slowed close to normal. There is no ankle edema. Objective Labs 11/06/24 06:49 11/06/24 06:49 Labs: Laboratory Results - last 24 hr 11/05/24 11/05/24 11/05/24 05:35 10:04 17:34 WBC RBC Hgb Hct MCV MCH MCHC RDW Plt Count Neut % (Auto) Lymph % (Auto) [place] % (Auto) Eos % (Auto) Baso % (Auto) Neut # (Auto) Lymph # (Auto) [place] # (Auto) Eos # (Auto) Baso # (Auto) APTT ABG Sample Site Right radial ABG pH 7.42 ABG pCO2 40.9 ABG pO2 48 L* ABG HCO3 26 ABG Total CO2 25 ABG O2 Saturation 84 L* ABG Base Excess 1.5 Anirudh Test Positive FiO2 % 28.0 % Sodium Potassium Chloride Carbon Dioxide BUN Creatinine Estimated GFR BUN/Creatinine Ratio Glucose Calcium Magnesium 2.0 Troponin I 44.400 H* 11/05/24 11/06/24 11/06/24 18:00 00:15 01:50 WBC RBC Hgb Hct MCV MCH MCHC RDW Plt Count Neut % (Auto) Lymph % (Auto) [place] % (Auto) Eos % (Auto) Baso % (Auto) Neut # (Auto) Lymph # (Auto) [place] # (Auto) Eos # (Auto) Baso # (Auto) APTT 97 H* D 79 H* D ABG Sample Site ABG pH ABG pCO2 ABG pO2 ABG HCO3 ABG Total CO2 ABG O2 Saturation ABG Base Excess Anirudh Test FiO2 % Sodium Potassium Chloride Carbon Dioxide BUN Creatinine Estimated GFR BUN/Creatinine Ratio Glucose Calcium Magnesium Troponin I 46.500 H* 32.100 H* 11/06/24 06:49 WBC 15.3 H RBC 4.33 L Hgb 14.0 Hct 40.9 L MCV 94.4 MCH 32.4 MCHC 34.3 RDW 13.6 Plt Count 263 Neut % (Auto) 69.9 Lymph % (Auto) 17.3 L [place] % (Auto) 12.2 Eos % (Auto) 0.1 L Baso % (Auto) 0.5 Neut # (Auto) 89420 H Lymph # (Auto) 2600 [place] # (Auto) 1900 H Eos # (Auto) 0 Baso # (Auto) 100 APTT 56 H D ABG Sample Site ABG pH ABG pCO2 ABG pO2 ABG HCO3 ABG Total CO2 ABG O2 Saturation ABG Base Excess Anirudh Test FiO2 % Sodium 136 L Potassium 5.0 Chloride 104 Carbon Dioxide 26 BUN 22 H Creatinine 0.93 Estimated GFR > 60 BUN/Creatinine Ratio 23.7 H Glucose 141 H Calcium 8.4 Magnesium Troponin I [facility] Medical History Atrial fibrillation with RVR Acute renal failure superimposed on chronic kidney disease Elevated troponin Anticoagulant prescribed at discharge Hypertension Congestive heart failure Cardiomyopathy Surgical History No significant past surgical history Family History Father Congestive heart failure Cancer Mother No pertinent past medical history Social History household members: significant other Smoking Status: Former smoker Tobacco: How many years used: 30 alcohol intake: never Assessment & Plan Assessment & Plan narrative: 1. NSTEMI, present on admission, active 2. Methamphetamine abuse, present on admission and active. 3. Atrial fibrillation with rapid response. Present on admission and active. 4. Chronic systolic heart failure and presumed non ischemic cardiomyopathy. Present on admission and stable. 5. Hypertension, present on admission stable. 6. Medication noncompliance, present on admission and active. Plan: -per discussion with Dr. Farrell began on IV heparin, stopping apixaban for now. Discussed further with his Cardiology group in [place]. They were willing to take him in transfer but he became too unstable, requiring the dobutamine and then the vasopressin drip so could not be accepted there without an ICU bed available. I then spoke with Cardiology at , Dr. Small who recommended changing from dobutamine to vasopressin and loading on digoxin. -EF has dropped from 15-20% down to 10-15% -continue diltiazem drip prn, vasopressin drip, digoxin loading -serial troponins. -followed by tele ICU physician. -continue Jardiance, metoprolol and torsemide. 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 He has changed to DNR since our last conversation on this topic yesterday. He is high risk here but would be high-risk at any location again given the access challenges. -we will try again to transfer to [facility] ICU. Do not resuscitate. Time-Based Coding :: [TOTAL MINUTES] spent with patient and on the chart (including review of chart, obtaining history, exam, reviewing outside data, placing orders, documenting exam and treatment plan, and counseling patient) on [DATE]. Quality VTE Deep Vein Thrombosis/Pulmonary Embolism Present on Admission: No
[2024-11-06] MEDS: METOPROLOL ER 25 MG TABLET PO ×2 (08:25→20:41)
[2024-11-06] MEDS: SODIUM CHLORIDE 0.9% FLUSH 10 ML IV ×2 (08:25→20:41)
[2024-11-06] MEDS: ASPIRIN EC 81 MG TABLET PO (08:25)
[2024-11-06] MEDS: TORSEMIDE 10 MG TABLET 20 MG PO (08:25)
[2024-11-06] MEDS: AMIODARONE 200 MG TABLET PO (08:25)
--- NOTE | 2024-11-06 08:56 | DI.RAD.S_ITS ---
PROCEDURE: XR CHEST 1V INDICATIONS: pleural effusion TECHNIQUE: One view of the chest was acquired. COMPARISON: [facility], CR, XR CHEST 1V, 11/05/2024, 16:14. [facility], CR, XR CHEST 1V, 11/05/2024, 5:49. FINDINGS AND IMPRESSION: Low lung volumes on single view radiography, limiting evaluation. Eventration of the right hemidiaphragm again seen. There is a right lower lung nodular opacity which is more conspicuous than prior. Airspace disease elsewhere has decreased. Surveillance imaging is recommended to exclude underlying lesion. No significant effusion component. Cardiomegaly. Degenerative changes. Dictated by: Hudson Siddiqui M.D. on 11/06/2024 at 8:19 Approved by: Hudson Siddiqui M.D. on 11/06/2024 at 8:21
--- NOTE | 2024-11-06 11:52 | PM.PN.EICU ---
Subjective <Deepthi Najera MD - Last Filed: 11/06/24 12:51> Subjective Consent obtained for tele-engineer operations and maintenance care: Yes Patient Location: ICU Interval history: 69 yo M w/afib, HFrEF (EF 10%) due to NICM, vtach, DARCY (active meth, cannabis use), ?BRENDAN, HTN, CKD. Presented w/CP and admitted 11/04 for afib w/RVR, NSTEMI, and medication noncompliance. Started on diltiazem ggt in ED, became hypotensive, switched to dobutamine. Switched to vasopressin/digoxin per [facility] cards recs. Attempts made to transfer from ED and ICU unsuccessful so far. Unclear if patient would be willing/accepting of transfer as well. Per RN report, A&Ox4, responds appropriately, follows commands, is not cooperative with care in general. Irregular breathing patterns while asleep, doing well on 2L NC while awake. Denies CP, difficulty breathing. States just can't get comfortable. Adequate UOP 70mL/hr (0.66mL/kg/hr) on torsemide.Tolerating PO diet. Papular rash to thighs/buttocks. <Alan Lopez MD - Last Filed: 01/10/25 09:38> Subjective IF CAMERA ACTIVATED, patient seen via real-time interactive audiovisual communication: Camera activated Consent obtained for tele-engineer operations and maintenance care: Yes Patient Location: ICU Provider location (State): [place] Other participants/roles: None Current Medications <Deepthi Najera MD - Last Filed: 11/06/24 12:51> Current Medications Medications: Home Medications apixaban 5 mg tablet (Eliquis) 5 mg PO BID 12/23/21 [History Confirmed 11/04/24] metoprolol succinate 25 mg tablet,extended release 24 hr 25 mg PO BID #60 tabs 12/26/21 [Rx Confirmed 11/04/24] amiodarone 200 mg tablet 200 mg PO DAILY 09/07/24 [History Confirmed 11/04/24] empagliflozin 10 mg tablet (Jardiance) 10 mg PO DAILY 09/07/24 [History Confirmed 11/04/24] sacubitril 49 mg-valsartan 51 mg tablet (Entresto) 1 tab PO BID 09/07/24 [History Confirmed 11/04/24] torsemide 20 mg tablet 20 mg PO DAILY 09/07/24 [History Confirmed 11/04/24] Visit Medications (administered) Generic Name Dose Route Start Last Admin Trade Name Abilio PRN Reason Stop Dose Admin Alprazolam 0.5 mg 11/05/24 14:03 11/05/24 21:04 Alprazolam 0.25 Mg Tablet PO 0.5 mg Q6H PRN Administration Anxiety Amiodarone HCl 200 mg 11/04/24 11:00 11/06/24 08:25 Amiodarone 200 Mg Tablet PO 200 mg DAILY MARLEEN Administration Aspirin 81 mg 11/05/24 06:50 11/06/24 08:25 Aspirin Ec 81 Mg Tablet PO 81 mg DAILY MARLEEN Administration Diltiazem HCl 125 mg/ Sodium 125 mls @ 5 mls/hr 11/04/24 08:00 11/05/24 15:38 Chloride IV 0 mg/hr TITRATE MARLEEN 0 mls/hr Protocol Titration 5 MG/HR Heparin Sodium/Dextrose 25,000 unit in 500 mls @ 26.4 mls/hr 11/05/24 11:15 11/06/24 00:50 Heparin Drip IV 6.1 units/kg/hr CONT MARLEEN 13.42 mls/hr Protocol Titration 12 UNITS/KG/HR Dobutamine HCl/Dextrose 250 mg in 250 mls @ 16.5 mls/hr 11/05/24 16:30 11/05/24 19:16 Dobutamine 250 Mg In D5w IV 0 mcg/kg/min TITRATE MARLEEN 0 mls/hr Protocol Titration 2.5 MCG/KG/MIN Vasopressin 40 unit/ Sodium 102 mls @ 4.5 mls/hr 11/05/24 18:38 11/05/24 19:12 Chloride IV 4.5 mls/hr CONT MARLEEN Administration Metoprolol Succinate 25 mg 11/06/24 09:00 11/06/24 08:25 Metoprolol Er 25 Mg Tablet PO 25 mg BID MARLEEN Administration Non-Formulary Medication 10 mg 11/04/24 11:00 11/06/24 08:32 Empagliflozin [Jardiance] PO Not Given DAILY MARLEEN Sodium Chloride 10 ml 11/04/24 21:00 11/06/24 08:25 Sodium Chloride 0.9% Flush IV 10 ml BID MARLEEN Administration Torsemide 20 mg 11/04/24 11:00 11/06/24 08:25 Torsemide 10 Mg Tablet PO 20 mg DAILY MARLEEN Administration Objective <Deepthi Najera MD - Last Filed: 11/06/24 12:51> Ventilator Parameters: 2L NC Labs 11/07/24 05:30 11/07/24 05:30 Labs: Laboratory Results - last 24 hr 11/05/24 11/05/24 11/06/24 17:34 18:00 00:15 WBC RBC Hgb Hct MCV MCH MCHC RDW Plt Count Neut % (Auto) Lymph % (Auto) [facility] % (Auto) Eos % (Auto) Baso % (Auto) Neut # (Auto) Lymph # (Auto) [facility] # (Auto) Eos # (Auto) Baso # (Auto) APTT 97 H* D 79 H* D ABG Sample Site Right radial ABG pH 7.42 ABG pCO2 40.9 ABG pO2 48 L* ABG HCO3 26 ABG Total CO2 25 ABG O2 Saturation 84 L* ABG Base Excess 1.5 Anirudh Test Positive FiO2 % 28.0 % Sodium Potassium Chloride Carbon Dioxide BUN Creatinine Estimated GFR BUN/Creatinine Ratio Glucose Calcium Troponin I 46.500 H* 11/06/24 11/06/24 01:50 06:49 WBC 15.3 H RBC 4.33 L Hgb 14.0 Hct 40.9 L MCV 94.4 MCH 32.4 MCHC 34.3 RDW 13.6 Plt Count 263 Neut % (Auto) 69.9 Lymph % (Auto) 17.[address] [facility] % (Auto) 12.2 Eos % (Auto) 0.1 L Baso % (Auto) 0.5 Neut # (Auto) 57925 H Lymph # (Auto) 2600 [facility] # (Auto) 1900 H Eos # (Auto) 0 Baso # (Auto) 100 APTT 56 H D ABG Sample Site ABG pH ABG pCO2 ABG pO2 ABG HCO3 ABG Total CO2 ABG O2 Saturation ABG Base Excess Anirudh Test FiO2 % Sodium 136 L Potassium 5.0 Chloride 104 Carbon Dioxide 26 BUN 22 H Creatinine 0.93 Estimated GFR > 60 BUN/Creatinine Ratio 23.7 H Glucose 141 H Calcium 8.4 Troponin I 32.100 H* Exam <Deepthi Najera MD - Last Filed: 11/06/24 12:51> Vital Signs (past 8 hours): - 11/06/24 04:00 11/06/24 04:30 11/06/24 04:55 Pulse Rate 105 H 104 H Respiratory Rate 47 H 36 H Blood Pressure Pulse Oximetry 93 91 Oxygen Delivery Method Nasal Cannula Oxygen Flow Rate 11/06/24 05:00 11/06/24 05:20 11/06/24 05:20 Pulse Rate 106 H 111 H Respiratory Rate 42 H 42 H Blood Pressure 130/92 H Pulse Oximetry 94 89 L Oxygen Delivery Method Oxygen Flow Rate 11/06/24 05:25 11/06/24 05:30 11/06/24 06:00 Pulse Rate 111 H 115 H 102 H Respiratory Rate 42 H 49 H 28 H Blood Pressure 130/92 H Pulse Oximetry 95 92 95 Oxygen Delivery Method Oxygen Flow Rate 2 11/06/24 06:03 11/06/24 06:03 11/06/24 06:05 Pulse Rate 102 H 102 H Respiratory Rate 35 H 33 H Blood Pressure 87/67 L Pulse Oximetry 95 93 Oxygen Delivery Method Oxygen Flow Rate 11/06/24 06:05 11/06/24 06:05 11/06/24 07:00 Pulse Rate 102 H 100 H Respiratory Rate 33 H 15 Blood Pressure 100/81 100/81 90/63 Pulse Oximetry 93 94 Oxygen Delivery Method Oxygen Flow Rate 2 2 11/06/24 07:03 11/06/24 07:03 11/06/24 08:00 Pulse Rate 100 H Respiratory Rate 22 Blood Pressure 90/63 Pulse Oximetry 93 Oxygen Delivery Method Nasal Cannula Oxygen Flow Rate 2 2 11/06/24 08:00 11/06/24 08:00 11/06/24 08:25 Pulse Rate 103 H 113 H Respiratory Rate 31 H Blood Pressure 100/63 100/63 Pulse Oximetry 93 Oxygen Delivery Method Oxygen Flow Rate 2 2 11/06/24 09:00 11/06/24 09:00 11/06/24 09:15 Pulse Rate 102 H 99 H Respiratory Rate 38 H 34 H Blood Pressure 108/76 Pulse Oximetry 92 92 Oxygen Delivery Method Oxygen Flow Rate 2 2 2 11/06/24 09:30 11/06/24 10:00 11/06/24 10:00 Pulse Rate 83 90 Respiratory Rate 31 H 36 H Blood Pressure 95/74 Pulse Oximetry 92 93 Oxygen Delivery Method Oxygen Flow Rate 11/06/24 10:30 11/06/24 11:00 11/06/24 11:00 Pulse Rate 93 H 99 H Respiratory Rate 34 H 24 Blood Pressure 106/70 Pulse Oximetry 96 94 Oxygen Delivery Method Oxygen Flow Rate Oxygen Delivery Method Nasal Cannula Oxygen Flow Rate 2 Narrative Exam Narrative: Camera in room and on cart not functioning. Quality TeleICU <Deepthi Najera MD - Last Filed: 11/06/24 12:51> VTE Deep Vein Thrombosis/Pulmonary Embolism Present on Admission: No Assessment & Plan <Deepthi Najera MD - Last Filed: 11/06/24 12:51> Assessment & Plan narrative: 1. AFib w/RVR: Now rate controlled s/p dig. HD stable on vaso (not titrated). Continue hep ggt, amio, metop. Electrolyte replacement to keep K>4, Phos>3, Mg>2. Apixaban when hep ggt stopped. 2. Vtach: Stable. No more episodes. Cont amio. 3. HFrEF: EF stable. Hep ggt per cards. Discuss w/cards plan for another cath attempt v. transition back to apixaban. Cont sacubitril-valsartan, empagliflozin, toresmide. Monitor UOP closely. No fluid restriction currently. 4. NSTEMI: Stable. Assymptomatic. Trop downtrending. Cont aspirin, hep ggt. 5. LOIDA on CKD: Improving. Cr 0.9 from 1.2. UOP 0.66mL/kg/hr. Continue to monitor. 6. ?BRENDAN: Obstruction/apnea observed by bedside RN while sleeping. Obese. Consider CPAP overnight if increased resp distress and patient willing to try. 7. DARCY (meth, cannabis): Cessation counseling. 8. Papular Rash: Thighs, buttocks. Hospitalist to eval. ICU BUNDLE - code status: DNR/DNI - VTE prophylaxis: ambulation, hep ggt - GI prophylaxis: not indicated - nutrition: tolerating cardiac diet - glycemic control: meeting goal BS <180 - delirium precautions Time-Based Coding :: 30 minutes spent with patient and on the chart (including review of chart, obtaining history, exam, reviewing outside data, placing orders, documenting exam and treatment plan, and counseling patient) on 11/06/24.
[2024-11-06 13:54] LABS: PTT Partial Thromboplastin Tim 60 SECONDS (25.1-36.5)
[2024-11-06 13:55] LABS: Phosphorous 3.2 mg/dL (2.3-3.7)
[2024-11-06 15:14] LABS: Blood Urea Nitrogen 21 mg/dL (9-20); Calcium 8.4 mg/dL (8.4-10.2); Carbon Dioxide 29 mmol/L (22-32); Chloride 101 mmol/L (98-107); Estimated Glomerular Filt Rate > 60 mL/min (>60); Glucose 189 mg/dL (70-99); HEMOLYSIS < 15 (0-50); Potassium 4.1 mmol/L (3.4-5.1); Sodium 137 mmol/L (137-145)
[2024-11-06 15:18] LABS: Digoxin < 0.4 ng/mL (0.8-2.0)
[2024-11-06] MEDS: VASOPRESSIN 40 UNIT in SODIUM CHLORIDE 0.9% 100 ML 4.5 UNIT IV (17:29)
[2024-11-06 20:22] LABS: PTT Partial Thromboplastin Tim 63 SECONDS (25.1-36.5)
[2024-11-06] MEDS: HEPARIN DRIP 25,000 UNIT/500 ML IV.SOLN 13.42 UNIT IV (20:43)
[2024-11-07] VITALS (18 sets, daily range): BP systolic 106–160; BP diastolic 56–106; PULSE 83–105; RESP 13–39; TEMP 36.3; O2SAT 90–97
[2024-11-07 05:40] LABS: Add Manual Diff / Slide Review NO; Hematocrit 39.3 % (41-53); Hemoglobin 13.2 g/dL (13.5-17.5); Lymphocytes Absolute Auto 2700 /uL (1100-4500); Mean Corpuscular HGB Conc 33.7 % (30-36); Mean Corpuscular Hemoglobin 32.0 PG (26-34); Mean Corpuscular Volume 95.0 fL (80-100); Platelet Count 239 X10^3/uL (150-400)
[2024-11-07 05:51] LABS: Alanine Aminotransferase 27 IU/L (<50); Albumin 3.9 g/dL (3.5-5.0); Albumin Globulin Ratio 1.2 (1.0-2.8); Alkaline Phosphatase 59 U/L (38-126); Blood Urea Nitrogen 22 mg/dL (9-20); Calcium 7.8 mg/dL (8.4-10.2); Carbon Dioxide 27 mmol/L (22-32); Chloride 99 mmol/L (98-107); Estimated Glomerular Filt Rate > 60 mL/min (>60); Globulin 3.3 g/dL (1.7-4.1); Glucose 243 mg/dL (70-99); HEMOLYSIS 25 (0-50); Potassium 3.7 mmol/L (3.4-5.1); Sodium 135 mmol/L (137-145); Total Protein 7.2 g/dL (6.3-8.2)
[2024-11-07 06:12] LABS: Digoxin < 0.4 ng/mL (0.8-2.0)
--- NOTE | 2024-11-07 06:18 | PC.NURSE ---
Report called to MICHAEL Cortes at [facility] Step-down unit at this time.
[2024-11-07 06:36] LABS: PTT Partial Thromboplastin Tim 59 SECONDS (25.1-36.5)
--- NOTE | 2024-11-07 07:22 | PM.DS.1 ---
History of Present Illness History of Present Illness Date Patient Seen: 11/07/24 Time Patient Seen: 07:22 Chief complaint: having an attack of some sort Narrative: The patient was a 69-year-old male with a history of chronic systolic heart failure, hypertension, PAF, and CKD. He also has a history of methamphetamine use. Continues to use this about twice a week. He presents today with palpitations and is found to be in atrial fibrillation with rapid response. He was not had recent orthopnea or leg edema. He did stop all medications 2-3 weeks ago because he felt better. He denies recent chest pain except for last evening he would right arm pain. He came to the ER for these symptoms and was found to be in rapid response and had a normal troponin. He also notes some numbness in the arms greater either right side of the left. No recent blood per rectum or melena. Last time he was in the hospital a sent to [facility] and had a transesophageal echo and a attempted heart catheterization. ED course: A diltiazem drip was started for rate control. Discharge Providers Provider Date of admission: 11/04/24 08:26 Discharge Date: 11/07/24 Primary care physician: Vanesa Valle DO Consults: 11/05/24 18:13 Consult to Tele-immunopathologist Routine Comment: Consulting Provider: [employer] Reason for consultation: Special Education Assistant services Discharge provider: Omid Vargas MD Summary Hospital Course Hospital Course: 1. NSTEMI 2. Methamphetamine abuse 3. Atrial fibrillation with rapid response with non-sustained Vtach. 4. Chronic systolic heart failure and presumed non ischemic cardiomyopathy. 5. Hypertension 6. Medication noncompliance Plan: -per discussion with Dr. Farrell he was begun on IV heparin. He was then discussed further with his Cardiology group in [place]. They were willing to take him in transfer but he became too unstable with hypotension, requiring the dobutamine drip(stopping Diltiazem) and then the vasopressin drip so could not be accepted there without an ICU bed available. I then spoke with Cardiology at , Dr. Small who recommended changing from dobutamine to vasopressin and loading on digoxin. Over the next 2 days he slowly improved finally being taken off vasopressin around midnight last night with no subsequent variation in his heart rate or blood pressure. He was reported to have remained stable until 7:00 a.m. this morning when he was transferred to the step-down unit at [facility] in [facility]. He was still on heparin IV and receiving digoxin 0.25 mg IV daily. His dig level this morning was less than 0.04. The AST was 88. The glucose was 243. The metabolic panel was otherwise normal and the white blood count was 14.4. -EF has dropped from 15-20% down to 10-15% -the troponin peaked at 48 and then yesterday was down to 32. -followed by tele ICU physician while here. -continued Jardiance, metoprolol and torsemide. 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 He has changed to DNR since our last conversation on this topic yesterday. Do not resuscitate. Status at Discharge Cognitive/behavioral status at discharge: at baseline, oriented Functional status at discharge: wheelchair bound Overall status at discharge: patient is not back to baseline Exam Vital Signs (past 8 hours): - 11/06/24 23:30 11/07/24 00:00 11/07/24 00:00 Temperature Pulse Rate 93 H Respiratory Rate 30 H Blood Pressure 160/106 H Pulse Oximetry 95 Oxygen Delivery Method Nasal Cannula 11/07/24 00:00 11/07/24 00:30 11/07/24 01:00 Temperature Pulse Rate 95 H 87 105 H Respiratory Rate 13 20 39 H Blood Pressure Pulse Oximetry 95 94 90 L Oxygen Delivery Method 11/07/24 01:01 11/07/24 01:01 11/07/24 01:30 Temperature Pulse Rate 94 H 92 H Respiratory Rate 38 H 29 H Blood Pressure 106/56 L Pulse Oximetry 93 95 Oxygen Delivery Method 11/07/24 01:31 11/07/24 01:31 11/07/24 02:00 Temperature Pulse Rate 85 Respiratory Rate 28 H Blood Pressure 107/57 L 106/78 Pulse Oximetry 95 Oxygen Delivery Method 11/07/24 02:00 11/07/24 02:30 11/07/24 03:00 Temperature Pulse Rate 89 86 Respiratory Rate 32 H 29 H Blood Pressure 114/58 L Pulse Oximetry 94 97 Oxygen Delivery Method 11/07/24 03:00 11/07/24 03:30 11/07/24 04:00 Temperature Pulse Rate 87 85 Respiratory Rate 30 H 30 H Blood Pressure Pulse Oximetry 97 96 Oxygen Delivery Method Nasal Cannula 11/07/24 04:00 11/07/24 04:01 11/07/24 04:01 Temperature Pulse Rate 84 89 Respiratory Rate 26 H 26 H Blood Pressure 107/69 Pulse Oximetry 96 95 Oxygen Delivery Method 11/07/24 04:30 11/07/24 05:00 11/07/24 05:00 Temperature Pulse Rate 84 86 Respiratory Rate 32 H 27 H Blood Pressure 126/73 Pulse Oximetry 97 97 Oxygen Delivery Method 11/07/24 05:30 11/07/24 06:00 11/07/24 06:01 Temperature Pulse Rate 91 H 84 Respiratory Rate 30 H 27 H Blood Pressure 117/66 Pulse Oximetry 91 95 Oxygen Delivery Method 11/07/24 06:01 11/07/24 06:41 Temperature 97.4 F L Pulse Rate 83 Respiratory Rate 26 H Blood Pressure Pulse Oximetry 94 Oxygen Delivery Method Oxygen Delivery Method Nasal Cannula Oxygen Flow Rate 2 Narrative Exam Narrative: Patient was discussed with the discharging RN as he had been taken by EMT's 10 minutes before I arrived. He was described as stable, off the vasopressin, blood pressure and heart rate stable, continued on 2 L nasal cannula. Continued on heparin drip, transferring to the step-down unit at [facility] in [facility]. Objective Labs 11/07/24 05:30 11/07/24 05:30 Labs: Laboratory Results - last 24 hr 11/06/24 11/06/24 11/06/24 06:49 13:35 14:36 WBC RBC Hgb Hct MCV MCH MCHC RDW Plt Count Neut % (Auto) Lymph % (Auto) [place] % (Auto) Eos % (Auto) Baso % (Auto) Neut # (Auto) Lymph # (Auto) [place] # (Auto) Eos # (Auto) Baso # (Auto) APTT 56 H D 60 H Sodium 137 Potassium 4.1 Chloride 101 Carbon Dioxide 29 BUN 21 H Creatinine 1.27 H Estimated GFR > 60 BUN/Creatinine Ratio 16.5 Glucose 189 H Calcium 8.4 Phosphorus 3.2 Total Bilirubin AST ALT Alkaline Phosphatase Total Protein Albumin Globulin Albumin/Globulin Ratio Digoxin < 0.4 L 11/06/24 11/07/24 11/07/24 20:05 05:30 06:20 WBC 14.4 H RBC 4.14 L Hgb 13.2 L Hct 39.3 L MCV 95.0 MCH 32.0 MCHC 33.7 RDW 13.5 Plt Count 239 Neut % (Auto) 68.1 Lymph % (Auto) 18.5 L [place] % (Auto) 12.4 Eos % (Auto) 0.3 L Baso % (Auto) 0.7 Neut # (Auto) 9800 H Lymph # (Auto) 2700 [place] # (Auto) 1800 H Eos # (Auto) 100 Baso # (Auto) 100 APTT 63 H 59 H Sodium 135 L Potassium 3.7 Chloride 99 Carbon Dioxide 27 BUN 22 H Creatinine 0.89 Estimated GFR > 60 BUN/Creatinine Ratio 24.7 H Glucose 243 H Calcium 7.8 L Phosphorus Total Bilirubin 1.4 H AST 88 H ALT 27 Alkaline Phosphatase 59 Total Protein 7.2 Albumin 3.9 Globulin 3.3 Albumin/Globulin Ratio 1.2 Digoxin < 0.4 L [facility] Medical History Atrial fibrillation with RVR Acute renal failure superimposed on chronic kidney disease Elevated troponin Anticoagulant prescribed at discharge Hypertension Congestive heart failure Cardiomyopathy Surgical History No significant past surgical history Family History Father Congestive heart failure Cancer Mother No pertinent past medical history Social History household members: significant other Smoking Status: Former smoker Tobacco: How many years used: 30 alcohol intake: never Discharge Plan Discharge Plan Patient Disposition: [facility] Other facility: [facility] Discharge Data Primary Care Provider: Vanesa Valle Attending Provider: Anirudh Mccoy Admit Date/Time: 11/04/24 08:26 Quality VTE Deep Vein Thrombosis/Pulmonary Embolism Present on Admission: No
--- NOTE | 2024-11-07 07:40 | PC.NURSE ---
DISCHARGE: Pt transferred to transport stretcher 0705 by transport team and night RN. Discharge summary faxed to receiving hospital upon completion. Pt departed from unit with transport team at approximately 0715.
--- NOTE | 2024-11-07 08:12 | CM.DPC ---
DCP Hospital Transfer Per RN, pt accepted at [facility] in [facility] and ambulance transport arrived around 0730 this morning and transported pt to [place] for higher level of care needs. BELL Solorzano
== END 2024-11-07 07:15 | disposition short-term general hospital (02) | DRG 280 ==
LOC: ED 07:43 → AC 08:27 → ICU 11-05 11:20 → AC 11-07 09:56 → ICU 11-07 09:56
PROVIDERS: Anesthesiology; Family Medicine; Internal Medicine; Admitting Provider Hospitalist; Emergency Provider Emergency Medicine; PCP Family Medicine; Visit Provider Hospitalist
DX: I21.4 Non-ST elevation (NSTEMI) myocardial infarction (principal); I50.23 Acute on chronic systolic (congestive) heart failure; N17.9 Acute kidney failure, unspecified; I47.20 Ventricular tachycardia, unspecified; I42.8 Other cardiomyopathies; I13.0 Hypertensive heart and chronic kidney disease with heart failure and stage 1 through stage 4 chronic kidney disease, or unspecified chronic kidney disease; F15.10 Other stimulant abuse, uncomplicated; I48.0 Paroxysmal atrial fibrillation; I95.9 Hypotension, unspecified; N18.9 Chronic kidney disease, unspecified; G47.33 Obstructive sleep apnea (adult) (pediatric); Z66 Do not resuscitate; Z87.891 Personal history of nicotine dependence; Z91.148 Patient's other noncompliance with medication regimen for other reason; Z68.33 Body mass index [BMI] 33.0-33.9, adult; Z79.01 Long term (current) use of anticoagulants
CPT/HCPCS: 36415; 36600; 71045; 80048; 80053; 80162; 82550; 82805; 83690; 83735; 83880; 84100; 84484; 85025; 85610; 85730; 87797; 93005; 93010; 93306; 96365; 96366; 99284; 99285; 99291; 99292; G0378; J1160; J1644; J1938